=== PATIENT | male | born 1965 | race Caucasian/White ===

== ENCOUNTER 2016-10-01 13:39 | Inpatient (IN) ==
--- NOTE | 2016-10-01 14:04 | Emergency Department Note ---
Disposition Clinical Impression: Hepatic encephalopathy, Cirrhosis Disposition: Admitted As Inpatient Condition: Fair Altered Mental Status HPI - General Chief Complaint: ED Altered Mental Status Stated Complaint: Fall/AMS Time Seen by Provider: 10/01/16 13:48 Source: EMS Limitations: altered mental status Nursing Notes Reviewed: Yes Vital Signs Reviewed: Yes - History of Present Illness HPI Narrative: She presents after complaint of a possible fall although the patient is not able to give adequate history secondary to his medical condition of altered consciousness. Staff here does note the patient states he is more confused than usual but typically does have some chronic confusion. He lives in a snf and the history of trauma is undefined as is known here with the patient patient does not know why he is here. He specifically denies any pain in the head, neck, chest, abdomen or back. He initially said he had vomiting and then later said he does not have any. No diarrhea. No blood in the urine or stool. The snf will be attempted to be contacted and hopefully we will be able to get a hold of someone who knows about the patient. - Related Data Home Medications Medication Instructions Recorded Confirmed Paliperidone [Paliperidone ER] 6 mg PO DAILY 07/25/15 02/24/16 Multivitamin [One Daily Essential] 1 each PO DAILY 10/01/15 02/24/16 Tamsulosin [Flomax] 0.4 mg PO DAILY 10/01/15 02/24/16 Thiamine (B-1) [Vitamin B-1] 100 mg PO DAILY 10/01/15 02/24/16 Zinc Sulfate 220 mg PO DAILY 10/01/15 02/24/16 Gabapentin [Neurontin] 100 mg PO BID 02/03/16 02/24/16 lamoTRIgine [Lamictal] 100 mg PO DAILY 02/24/16 02/24/16 Previous Rx's Medication Instructions Recorded Folic Acid 1 mg PO DAILY #90 tablet 07/10/15 risperiDONE [RisperDAL] 1 mg PO BID #60 tablet 07/10/15 Ibuprofen [Motrin] 600 mg PO TID PRN #30 tab 01/15/16 Bumetanide 2 mg PO BID #60 tablet 02/07/16 Lactulose 20 gm PO TID 60 Days 02/07/16 Nadolol [Corgard] 20 mg PO DAILY #90 tablet 02/07/16 Omeprazole [PriLOSEC] 40 mg PO DAILY 30 Days 02/07/16 Rifaximin [Xifaxan] 400 mg PO BID #60 tablet 02/07/16 Spironolactone [Aldactone] 100 mg PO BID #30 tablet 02/07/16 Oxycodone HCl [Oxaydo] 5 mg PO Q6H PRN #20 tablet.orl 02/22/16 Allergies Allergy/AdvReac Type Severity Reaction Status Date / Time No Known Allergies Allergy Verified 09/14/16 16:04 Review of Systems: Denies any pain in the head or neck or abdomen Past Medical History - Past Medical History Medical history: Reports: arthritis, cirrhosis, CHF, COPD, GERD, hyperlipidemia , hypertension, liver disease, osteoporosis, seizures Surgical history: Reports: orthopedic, other (foot surgery) Psychiatric history: Reports: depression, schizophrenia - Social History Smoking Status: Never smoker Smokeless Tobacco Status: No Alcohol use: Reports: none Drug use: Reports: none Physical Exam CONSTITUTIONAL: Patient does seem lethargic, he does answer questions with questionable reliability but his answers are not always consistent. He does not know where he is. Does not know his age. Does not know the year. HEAD: Normocephalic; atraumatic. EYES: PERRL, no scleral icterus. NOSE: The nose is normal in appearance without rhinorrhea RESP: Normal chest excursion with respiration; breath sounds clear and equal bilaterally; no wheezes, rhonchi, or rales CARD: Regular rhythm, without murmurs, rub or gallop ABD: Non-distended; non-tender, soft,without rigidity, rebound or guarding SKIN: Normal for age and race; warm and dry; no apparent lesions NEUROLOGICAL: Cranial nerves III-XII are intact. Sensory and motor functions are intact. Strength is 5/5 for flexion and extension in all 4 extremities. Patellar DTRS are equal and intact. Finger to nose testing is equal and normal bilaterally. EXTREMITIES: Pulses are 2 plus and equal times 4 extremities - General Limitations: altered mental status General appearance: alert Course Vital Signs Temperature 97.9 F 10/01/16 13:46 Pulse Rate 101 10/01/16 13:46 Respiratory Rate 18 10/01/16 13:46 Blood Pressure 147/110 10/01/16 13:46 O2 Sat by Pulse Oximetry 100 10/01/16 13:46 Temperature 97.9 F 10/01/16 13:46 Pulse Rate 93 10/01/16 15:42 Respiratory Rate 18 10/01/16 15:42 Blood Pressure 109/74 10/01/16 15:42 O2 Sat by Pulse Oximetry 98 10/01/16 15:42 Oxygen Delivery Oxygen Delivery Room Air Altered Mental Status - MDM Narrative Medical decision making narrative: Labs plus head CT are ordered and pending. Patient is breathing comfortably. Color is good. 1405 The patient is a [facility]. I did review previous records. The patient does have a history of cirrhosis. 1406 I spoke with his nurse Nette at [facility] and she went in to give pt his morning meds and he was much more confused than usual. He typically knows year and month and is alert and oriented X 3. He may have snuck out and drank as he does leave the building "all the time". In the past the PA and MD have found that he smelled of alcohol after he returned to the [facility]. He has been there since September 04. He told the nurse aid that he fell but there is not paperwork about this. No fever, vomiting, difficulty breathing. His abd is usually distended, but no change today compared to baseline. I did review the patient's labs and radiology results. The ammonia level was extremely high. I did administer lactulose. The patient is confused and I did speak with the hospitalist who accepts the patient for admission.[id number] I did review the patient's EKG showing sinus tachycardia with a rate of 102 without acute ischemic change. 1636 - Medical Records Medical records reviewed: Yes I reviewed the patient's medical records. - Lab Data Lab results reviewed: Yes I reviewed the patient's lab results. Result diagrams: 10/01/16 14:04 10/01/16 14:04 Lab Results 10/01/16 10/01/16 10/01/16 Range/Units 13:55 13:55 14:04 WBC 6.6 (4.3-11.1) K/mcL RBC 3.56 L (4.19-5.50) M/mcL Hgb 12.3 L (12.9-16.9) g/dL Hct 34.6 L (37.5-50.1) % MCV 97.2 (83.0-100.0) fL MCH 34.6 H (28.0-33.3) pg MCHC 35.5 (31.6-35.5) g/dL RDW 14.6 H (11.5-14.5) % Plt Count 109 L (140-400) K/mcL MPV 8.4 L (9.4-12.4) fL Immature Gran % 0.6 (0-4) % Seg Neutrophils % 66.2 % Lymphocytes % 13.2 % Monocytes % 11.5 % Eosinophils % 7.9 % Basophils % 0.6 % Neutrophils # 4.4 (1.6-8.9) K/mcL Lymphocytes # 0.9 (0.6-4.6) K/mcL Monocytes # 0.8 (0.0-1.3) K/mcL Eosinophils # 0.5 (0.0-0.6) K/mcL Basophils # 0.0 (0.0-0.2) K/mcL Immature Plt Fraction 0.6 L (1.1-6.1) % Sodium (136-145) mEq/L Potassium (3.5-4.5) mEq/L Chloride (98-109) mEq/L Carbon Dioxide (19-29) mEq/L BUN (8-26) mg/dL Creatinine (0.72-1.25) mg/dL Est GFR ( Amer) (> 60) Est GFR (Non-Af Amer) (> 60) BUN/Creatinine Ratio (6-26) Glucose (70-99) mg/dL Calculated Osmolality (280-300) Calcium (8.6-10.8) mg/dL Total Bilirubin (0.2-1.2) mg/dL Direct Bilirubin (0.0-0.5) mg/dL Indirect Bilirubin (0.0-1.2) mg/dL AST (5-34) Units/L ALT (0-55) Units/L Alkaline Phosphatase (38-126) Units/L Ammonia (18-72) mcmol/L Serum Total Protein (6.0-8.3) g/dL Albumin (3.5-5.0) g/dL Globulin (2.4-3.5) g/dL Albumin/Globulin Ratio (1.1-2.2) Urine Color Yellow (Yellow) Urine Clarity Clear (Clear) Urine pH 7.5 (5.0-8.0) pH Units Ur Specific [place] 1.012 (1.010-1.025) Urine Protein Negative (Neg-Trace) mg/dL Urine Glucose (UA) Normal (Normal) mg/dL Urine Ketones Negative (Negative) mg/dL Urine Blood Negative (Negative) Urine Nitrite Negative (Negative) Urine Bilirubin Negative (Negative) Urine Urobilinogen Normal (Normal) mg/dL Ur Leukocyte Esterase Negative (Negative) Ur Culture Indicated? NO (NO) Urine Opiates Screen Negative (Ntikil=104) ng/mL Ur Barbiturates Screen Negative (Qzycfe=783) ng/mL Ur Phencyclidine Scrn Negative (Cutoff=25) ng/mL Ur Amphetamines Screen Negative (Gdgxge=8519) ng/mL U Benzodiazepines Scrn Negative (Tbhjep=344) ng/mL Urine Cocaine Screen Negative (Cutoff= 300) ng/mL U Marijuana (THC) Screen Negative (Cutoff = 50) ng/mL Ethyl Alcohol (0-10) mg/dL 10/01/16 10/01/16 Range/Units 14:04 14:49 WBC (4.3-11.1) K/mcL RBC (4.19-5.50) M/mcL Hgb (12.9-16.9) g/dL Hct (37.5-50.1) % MCV (83.0-100.0) fL MCH (28.0-33.3) pg MCHC (31.6-35.5) g/dL RDW (11.5-14.5) % Plt Count (140-400) K/mcL MPV (9.4-12.4) fL Immature Gran % (0-4) % Seg Neutrophils % % Lymphocytes % % Monocytes % % Eosinophils % % Basophils % % Neutrophils # (1.6-8.9) K/mcL Lymphocytes # (0.6-4.6) K/mcL Monocytes # (0.0-1.3) K/mcL Eosinophils # (0.0-0.6) K/mcL Basophils # (0.0-0.2) K/mcL Immature Plt Fraction (1.1-6.1) % Sodium 125 L (136-145) mEq/L Potassium 4.6 H (3.5-4.5) mEq/L Chloride 94 L (98-109) mEq/L Carbon Dioxide 26 (19-29) mEq/L BUN 13 (8-26) mg/dL Creatinine 0.72 (0.72-1.25) mg/dL Est GFR ( Amer) > 60 (> 60) Est GFR (Non-Af Amer) > 60 (> 60) BUN/Creatinine Ratio 18 (6-26) Glucose 108 H (70-99) mg/dL Calculated Osmolality 261 L (280-300) Calcium 9.4 (8.6-10.8) mg/dL Total Bilirubin 4.4 H (0.2-1.2) mg/dL Direct Bilirubin 2.3 H (0.0-0.5) mg/dL Indirect Bilirubin 2.1 H (0.0-1.2) mg/dL AST 84 H (5-34) Units/L ALT 53 (0-55) Units/L Alkaline Phosphatase 241 H (38-126) Units/L Ammonia 124 H (18-72) mcmol/L Serum Total Protein 7.6 (6.0-8.3) g/dL Albumin 2.8 L (3.5-5.0) g/dL Globulin 4.8 H (2.4-3.5) g/dL Albumin/Globulin Ratio 0.6 L (1.1-2.2) Urine Color (Yellow) Urine Clarity (Clear) Urine pH (5.0-8.0) pH Units Ur Specific [place] (1.010-1.025) Urine Protein (Neg-Trace) mg/dL Urine Glucose (UA) (Normal) mg/dL Urine Ketones (Negative) mg/dL Urine Blood (Negative) Urine Nitrite (Negative) Urine Bilirubin (Negative) Urine Urobilinogen (Normal) mg/dL Ur Leukocyte Esterase (Negative) Ur Culture Indicated? (NO) Urine Opiates Screen (Dxswsq=324) ng/mL Ur Barbiturates Screen (Qluaxo=925) ng/mL Ur Phencyclidine Scrn (Cutoff=25) ng/mL Ur Amphetamines Screen (Isazpl=2135) ng/mL U Benzodiazepines Scrn (Biwbhs=845) ng/mL Urine Cocaine Screen (Cutoff= 300) ng/mL U Marijuana (THC) Screen (Cutoff = 50) ng/mL Ethyl Alcohol < 10 (0-10) mg/dL - Radiology Data Radiology results reviewed: Yes I reviewed the patient's radiology results. Chest X-Ray 10/01/16 13:47 IMPRESSION: Small airspace opacity at the right lung base, improved since the prior study, likely related to atelectasis versus pneumonia. Trace right pleural effusion. Stable borderline cardiomegaly. D/ / Michael Pierre MD / Michael Pierre MD Interpreting Provider: Michael Pierre MD Head CT 10/01/16 13:47 IMPRESSION: No acute intracranial abnormality. D/ / Joelle Braden MD / Joelle Braden MD Interpreting Provider: Joelle Braden MD Checklist - LKW: 3-4.5 hrs Add. Warnings/Precautions Patient/family understanding: The patient/family members have been counseled and understood the risk, benefit , and alternatives of treatment. Critical Care Time Critical Care Time: Yes (30 minutes) Attestation: I did emergently evaluate the patient presented confused, spoke with the [facility] staff, review the patient's radiology results as well as lab results, the patient was diagnosed with hepatic encephalopathy and treated with lactulose. Critical care time: 30 minutes [id number]
[2016-10-01 14:06] LABS: Bilirubin,Urine Negative (Negative); Blood,Urine Negative (Negative); Clarity,Urine Clear (Clear); Color,Urine Yellow (Yellow); Glucose,Urine (UA) Normal (Normal); Ketones,Urine Negative (Negative); Leukocyte Esterase,Urine Negative (Negative); Nitrite,Urine Negative (Negative); PH,Urine 7.5 pH Units (5.0-8.0); Protein,Urine Negative (Neg-Trace); Specific Gravity,Urine 1.012 (1.010-1.025); Urobilinogen,Urine Normal (Normal)
[2016-10-01 14:11] LABS: Amphetamine Screen,Urine Negative ng/mL (Cutoff=1000); Barbiturate Screen,Urine Negative ng/mL (Cutoff=200); Benzodiazepines Screen,Urine Negative ng/mL (Cutoff=200); Cannabinoid Screen,Urine Negative ng/mL (Cutoff = 50); Cocaine Screen,Urine Negative ng/mL (Cutoff= 300); Opiate Screen,Urine Negative ng/mL (Cutoff=300); Phencyclidine Screen,Urine Negative ng/mL (Cutoff=25)
[2016-10-01 14:14] LABS: Immature Granulocytes % 0.6 % (0-4); Mean Corpuscular HGB Conc 35.5 g/dL (31.6-35.5); Mean Platelet Volume 8.4 fL (9.4-12.4)
[2016-10-01 14:15] LABS: Basophils % 0.6 %; Eosinophils # 0.5 K/mcL (0.0-0.6); Eosinophils % 7.9 %; Hematocrit 34.6 % (37.5-50.1); Hemoglobin 12.3 g/dL (12.9-16.9); Immature Platelets 0.6 % (1.1-6.1); Lymphocytes # 0.9 K/mcL (0.6-4.6); Lymphocytes % 13.2 %; Mean Corpuscular Hemoglobin 34.6 pg (28.0-33.3); Mean Corpuscular Volume 97.2 fL (83.0-100.0); Monocytes # 0.8 K/mcL (0.0-1.3); Monocytes % 11.5 %; Neutrophils # 4.4 K/mcL (1.6-8.9); Platelet Count 109 K/mcL (140-400); Red Blood Count 3.56 M/mcL (4.19-5.50); Red Cell Distribution Width 14.6 % (11.5-14.5); Segmented Neutrophils % 66.2 %
[2016-10-01 14:27] LABS: Alanine Aminotransferase 53 Units/L (0-55); Albumin 2.8 g/dL (3.5-5.0); Albumin/Globulin Ratio 0.6 (1.1-2.2); Alkaline Phosphatase 241 Units/L (38-126); Aspartate Amino Transferase 84 Units/L (5-34); BUN/Creatinine Ratio 18 (6-26); Bilirubin,Direct 2.3 mg/dL (0.0-0.5); Bilirubin,Indirect 2.1 mg/dL (0.0-1.2); Bilirubin,Total 4.4 mg/dL (0.2-1.2); Blood Urea Nitrogen 13 mg/dL (8-26); Calcium 9.4 mg/dL (8.6-10.8); Carbon Dioxide 26 mEq/L (19-29); Chloride 94 mEq/L (98-109); Globulin 4.8 g/dL (2.4-3.5); Glucose 108 mg/dL (70-99); Osmolality,Calculated 261 (280-300); Potassium 4.6 mEq/L (3.5-4.5); Sodium 125 mEq/L (136-145); Total Protein 7.6 g/dL (6.0-8.3); eGFR For African Americans > 60 (> 60); eGFR For Non-African Americans > 60 (> 60)
[2016-10-01 14:33] LABS: Ethanol < 10 mg/dL (0-10)
[2016-10-01] MEDS ORDERED: Lactulose Oral Soln 20 GM/30 ML UDC PO ONE (16:07)
[2016-10-01] MEDS ORDERED: Acetaminophen 325 MG TABLET PO PRN ×2 (17:31→21:59)
[2016-10-01] MEDS ORDERED: Naloxone 0.4 MG/ML INJ IVP PRN (17:31)
[2016-10-01] MEDS ORDERED: Ondansetron 4 MG/2 ML VIAL IVP PRN (17:31)
--- NOTE | 2016-10-01 17:56 | Internal Med History&Physical ---
<Itz Iverson - Last Filed: 10/01/16 19:03> Date of Encounter: 10/01/16 Time of Encounter: 17:00 Assessment and Plan (1) Spontaneous bacterial peritonitis Current visit: Yes Status: Acute Patient presents with suspected spontaneous bacterial peritonitis based on symptomatology. Patient's current WBC is 6.6 and is not symptomatic for sepsis based on criteria. IV Zosyn 3.375 gm Q8 ordered for infection coverage. (2) Hepatic encephalopathy Current visit: Yes Status: Acute Patient presents with symptoms of acute hepatic encephalopathy. Patient's current ammonia level is 122 following initial ammonia level of 124 in the ED. Patient is extremely altered mentally during examination and unable to answer questions appropriately or coherently. Patient received 30 mg lactulose ED which did not bring ammonia level down significantly. Patient to receive lactulose enema. Follow-up ammonia and labs ordered. Bedside swallow evaluation ordered. Patient to be placed as NPO until he is more lucid and coherent. (3) Abdominal pain Current visit: Yes Status: Acute Patient presents with generalized abdominal pain with palpation during examination. IV Zofran ordered. IVP Protonix 40 mg daily ordered. Patient is currently to be NPO due to AMS and will require swallow evaluation to determine ability to take PO medications. IV Zosyn 3.375 Q8 ordered for suspected spontaneous bacterial peritonitis infection coverage. Qualifiers: Abdominal location: generalized Qualified Code(s): R10.84 - Generalized abdominal pain (4) Abnormal EKG Current visit: Yes Status: Acute Patient's EKG on admission shows sinus tachycardia which is most likely related to current symptomatology and suspected spontaneous bacterial peritonitis. Patient placed on continuous cardiac telemetry. Follow-up EKG ordered. (5) Hyperammonemia Current visit: Yes Status: Acute Patient presents with altered mental status related to cirrhosis and hepatic encephalopathy. Patient is unable to answer questions coherently during exmination and is alert and oriented x0. Patient's ammonia level on admission was 124. Patient received 30 mg PO lactulose in the ED. Patient's second ammonia level was 122. Patient to receive lactulose via rectal enema. Follow-up ammonia level ordered for a.m. Will continue to monitor patient's mental status. (6) GERD (gastroesophageal reflux disease) Current visit: Yes Status: Chronic Patient has history of chronic GERD. IV Zofran ordered. IVP Protonix 40 mg daily ordered. Qualifiers: Esophagitis presence: esophagitis presence not specified Qualified Code(s) : K21.9 - Gastro-esophageal reflux disease without esophagitis (7) DVT prophylaxis Current visit: Yes Status: Acute Patient to be placed on DVT prophylaxis due to admission protocol and current AMS. Bilateral SCDs ordered for patient's LEs. Internal Medicine - H&P: HPI Chief complaint: Altered mental status Admitted From: Emergency Dept Plans for Post Hospital Care: Home History of present illness: Mr. Rivera is a 51 year old male who presents from the ED with chief complaint of altered mental status. Upon examination, patient is in an altered state of consciousness and offers only minimal responses which do not correlate to the questions asked of him. He is alert and oriented x0 and does not currently know where he is, what year it is, or why he is here at the hospital. Due to patient being unable to verbalize clearly or coherently, information about the patient must be taken from previous medical history available. According to records, the [facility] a [facility] but no contact has been able to be made to verify information about Mr. Rivera. Patient has no known allergies according to records. Patient's medical history includes arthritis, cirrhosis, CHF, COPD , GERD, HLD, HTN, liver disease, osteoporosis, and seizures. Patient's psychiatric history includes depression and schizophrenia. When asked what medications the patient takes for his psychiatric history he stated 'alcohol'. Upon physical examination the patient is breathing regularly and comfortably. Patient's heart rate is regular rhythm and lungs are clear upon auscultation. Patient does report pain when abdomen is palpated. Upon admission TV, patient' s ammonia level was 124. AST was 84 and AST was 53. Bilirubin was 4.4. Patient received 30 mg lactulose by mouth in the ED. Follow-up lactulose will likely have to be via rectal enema. Swallow evaluation ordered to determine if patient can safely take medications PO. Patient placed on continuous cardiac telemetry and supplemental O2 and will be NPO until he becomes more lucid. Patient is at moderate risk for morbidity based on current symptomology and will be placed as inpatient status. Follow-up ammonia level ordered as well as labs. Patient to be monitored closely. Time spent with patient 30 minutes. Past Med Surg Social Fam HX - Past Medical History Source: old records reviewed Medical history: arthritis, cirrhosis, CHF, COPD, GERD, hyperlipidemia, hypertension, liver disease, osteoporosis, seizures Psychiatric history: depression, schizophrenia - Past Surgical History Surgical History: orthopedic, other (foot surgery) - Social History Smoking Status: Never smoker Smokeless Tobacco Status: No Alcohol use: none Drug use: none Current living situation: Longterm - Family History Mother Living Status: Hx Family Cardiac Disorders: Yes Hx Family Respiratory Disorders: Yes (COPD) Hx Family Cancer: No Hx Family GI Disorders: No Hx Family Endocrine Disorder: No Hx Family Neuromuscular Disorders: Yes (Polio, CVA) Hx Family Neurologic Disorders: No Hx Family HEENT Disorders: No Hx Family Autoimmune Disorders: No Father Living Status: Hx Family Cardiac Disorders: No Hx Family Respiratory Disorders: No Hx Family Cancer: No Hx Family GI Disorders: No Hx Family Endocrine Disorder: No Hx Family Neuromuscular Disorders: No Hx Family Neurologic Disorders: No Hx Family HEENT Disorders: No Hx Family Autoimmune Disorders: No Sister Hx Family Cancer: Yes (thyroid cancer) Hx Family Endocrine Disorder: Yes Internal Medicine - H&P: Meds Paliperidone [Paliperidone ER] 6 mg PO QAM 07/25/15 [History] Multivitamin [One Daily Essential] 1 each PO QAM 10/01/15 [History] Tamsulosin [Flomax] 0.4 mg PO HS 10/01/15 [History] Thiamine (B-1) [Vitamin B-1] 100 mg PO QAM 10/01/15 [History] Zinc Sulfate 220 mg PO QAM 10/01/15 [History] Rifaximin [Xifaxan] 400 mg PO BID #60 tablet 02/07/16 [Rx] Oxycodone HCl [Oxaydo] 5 mg PO Q6H PRN #20 tablet.orl 02/22/16 [Rx] lamoTRIgine [Lamictal] 100 mg PO QAM 02/24/16 [History] Acetaminophen [Tylenol] 325 mg PO Q6HR PRN 10/01/16 [History] Bumetanide [Bumex] 1 mg PO BID 10/01/16 [History] Folic Acid 1 mg PO QAM 10/01/16 [History] Lactulose 30 gm PO QID PRN 10/01/16 [History] Melatonin 5 mg PO HS 10/01/16 [History] Pantoprazole Sodium [Protonix] 40 mg PO BID 10/01/16 [History] Spironolactone [Aldactone] 150 mg PO BID 10/01/16 [History] Tramadol HCl [Ultram] 50 mg PO BID PRN 10/01/16 [History] Allergies No Known Allergies Allergy (Verified 09/14/16 16:04) ROS unobtainable: due to mental status All Systems PM: A 10-system review of systems was performed and is negative for pertinent findings except as documented above in the HPI. - Constitutional Vitals: Temp Pulse Resp BP Pulse Ox 97.7 F 95 16 101/69 98 10/01/16 17:12 10/01/16 17:12 10/01/16 17:12 10/01/16 17:12 10/01/16 17:12 General appearance: Present: A&O X 0 - Head Head exam: Present: atraumatic, normocephalic - Eye Eye exam: Present: normal appearance - ENT ENT exam: Present: normal exam, normal external ear exam - Neck Neck exam general surgery: Present: normal inspection, supple, trachea midline - Respiratory Respiratory exam: Present: CTAB. Absent: accessory muscle use, rales, rhonchi, wheezes - Cardiovascular Cardiovascular exam: Present: RRR, +S1, +S2. Absent: diastolic murmur, gallop, rubs, systolic murmur - GI/Abdominal GI/Abdominal exam: Present: soft, tenderness - Rectal Rectal exam: Present: deferred - Additional comments: exam deferred. - Extremities Exam Extremities exam: Present: warm, radial pulses palpable and symetrical. Absent : calf tenderness, cyanotic, pedal edema - Neurological Exam Neurological exam: Present: altered - Skin Skin exam: Present: dry, intact Additional comments: Some peeling present on patient's face under lorenzo stubble. Some small red areas present on face and throughout body. Internal Med - H&P Results - Labs CBC & Chem 7: 10/01/16 14:04 10/01/16 14:04 - EKG Data EKG shows normal: sinus rhythm Rate: tachycardia - EKG Data When compared to previous EKG: there are significant changes EKG comments: 10/01/16 18:00 EKG dated 09/14/16 shows normal sinus rhythm. EKG dated 10/01/16 shows tachycardia and abnormal ECG rhythm. - Diagnostic Studies Chest x-ray Additional comments: Impressions Chest X-Ray 10/01/16 13:47 IMPRESSION: Small airspace opacity at the right lung base, improved since the prior study, likely related to atelectasis versus pneumonia. Trace right pleural effusion. Stable borderline cardiomegaly. D/ / Michael Pierre MD / Michael Pierre MD Interpreting Provider: Michael Pierre MD CT scan - head Additional comments: Impressions Head CT 10/01/16 13:47 IMPRESSION: No acute intracranial abnormality. D/ / Joelle Braden MD / Joelle Braden MD Interpreting Provider: Joelle Braden MD <Patrice Georges - Last Filed: 10/01/16 19:23> Date of Encounter: 10/01/16 Internal Medicine - H&P: HPI History of present illness: Mr. Rivera is a 51 year old male All Systems PM: A 10-system review of systems was performed and is negative for pertinent findings except as documented above in the HPI. - Constitutional Vitals: Temp Pulse Resp BP Pulse Ox 97.7 F 95 16 101/69 98 10/01/16 17:12 10/01/16 17:12 10/01/16 17:12 10/01/16 17:12 10/01/16 17:12 Internal Med - H&P Results - Labs CBC & Chem 7: 10/01/16 14:04 10/01/16 14:04 - Attending Attestation I saw and examined pt. I discussed with [employer] regarding the management plan. Agree with the documentation. Pt present with AMS with high amonia level. When I saw pt, he is awake but drowsy, disoriented. Agree with lactulose enema and empirical zosyn for suspected SBP. Follow ammonia level in AM.
[2016-10-01] MEDS: Pantoprazole 40 MG VIAL IVP SCH (18:11)
[2016-10-01] MEDS ORDERED: Lactulose 200 GM, Sodium Chloride IRRigation 700 ML RC ONE (18:24)
[2016-10-01] MEDS ORDERED: 0.9 % Sodium Chloride 1,000 ML IVC SCH (19:45)
[2016-10-01] MEDS: Lactulose Oral Soln 20 GM/30 ML UDC PO SCH (21:24)
[2016-10-02] MEDS ORDERED: Acetaminophen 325 MG TABLET PO SCH
[2016-10-02] MEDS: Piperacillin/Tazobactam 3.375 GM in D5% in Water (Mini-Bag+) 100 ML IVPB SCH ×2 (00:55→09:22)
[2016-10-02 05:58] LABS: INR 1.6; Prothrombin Time 17.3 Seconds (9.4-12.1)
[2016-10-02 06:01] LABS: Activated Partial Thrombo Time 37.8 Seconds (26.0-36.0)
[2016-10-02 06:21] LABS: Basophils # 0.1 K/mcL (0.0-0.2); Basophils % 0.8 %; Eosinophils # 0.6 K/mcL (0.0-0.6); Eosinophils % 8.3 %; Hematocrit 31.9 % (37.5-50.1); Hemoglobin 11.3 g/dL (12.9-16.9); Immature Granulocytes % 0.5 % (0-4); Lymphocytes # 0.9 K/mcL (0.6-4.6); Lymphocytes % 11.4 %; Mean Corpuscular HGB Conc 35.4 g/dL (31.6-35.5); Mean Corpuscular Hemoglobin 34.9 pg (28.0-33.3); Mean Corpuscular Volume 98.5 fL (83.0-100.0); Mean Platelet Volume 8.8 fL (9.4-12.4); Monocytes # 1.1 K/mcL (0.0-1.3); Monocytes % 14.8 %; Neutrophils # 4.9 K/mcL (1.6-8.9); Platelet Count 102 K/mcL (140-400); Red Blood Count 3.24 M/mcL (4.19-5.50); Red Cell Distribution Width 14.8 % (11.5-14.5); Segmented Neutrophils % 64.2 %
[2016-10-02 06:46] LABS: BUN/Creatinine Ratio 21 (6-26); Blood Urea Nitrogen 19 mg/dL (8-26); Carbon Dioxide 23 mEq/L (19-29); Chloride 97 mEq/L (98-109); Chol/HDL Ratio 3.4 (0-4.9); Cholesterol 162 mg/dL (< 200); Glucose 131 mg/dL (70-99); HDL Cholesterol 48 mg/dL (40-59); LDL Cholesterol,Calculated 105 mg/dL (0-99); Magnesium 1.4 mg/dL (1.6-2.6); Osmolality,Calculated 266 (280-300); Phosphorous 4.7 mg/dL (2.3-4.7); Potassium 4.4 mEq/L (3.5-4.5); Triglycerides 46 mg/dL (< 150); eGFR For African Americans > 60 (> 60); eGFR For Non-African Americans > 60 (> 60)
[2016-10-02 06:48] LABS: Sodium 126 mEq/L (136-145)
--- NOTE | 2016-10-02 07:28 | Electrocardiograph Report ---
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
[2016-10-02] MEDS: *HR* OxyCODONE Immed Rel 5 MG TABLET PO PRN ×3 (09:22→22:32)
[2016-10-02] MEDS: Pantoprazole 40 MG VIAL IVP SCH (09:22)
[2016-10-02] MEDS: Lactulose Oral Soln 20 GM/30 ML UDC PO SCH ×4 (09:22→20:43)
--- NOTE | 2016-10-02 10:12 | Internal Med Progress Note ---
<Davonte Allen - Last Filed: 10/02/16 10:47> Date of Encounter: 10/02/16 Time of Encounter: 10:09 - Assessment and plan (1) Spontaneous bacterial peritonitis Current Visit: Yes Status: Acute Assessment and plan: -Ascites secondary to alcoholic cirrhosis with fever and tachycardia - Febrile, 99.3. HR 111. WBC 7.6. - Will obtain diagnostic paracentesis this morning. IR consulted given INR of 1.6. UNable to obtain given lack of fluid on ultrasound. - Zosyn and rifaximin given. (2) Decompensated hepatic cirrhosis Current Visit: Yes Status: Chronic Assessment and plan: - Known history of alocholic cirrhosis with ammonia 86 most recently - Ascites on physical exam - Will obtain paracentesis - lactulose 30 mg QID. Ammonia level 86 - Zofran, protonix (3) Altered mental status Current Visit: Yes Status: Acute Assessment and plan: - Likely secondary to hepatic encephalopathy given history of cirrhosis. - Improved, AOx2 this morning. - Ammonia of 86. - Given lactulose 30 mg QID Qualifiers: Altered mental status type: transient alteration of awareness Qualified Code(s): R40.4 - Transient alteration of awareness (4) Hypomagnesemia Current Visit: Yes Status: Acute Assessment and plan: 1.4 - Given 2 mg IVPB (5) GERD (gastroesophageal reflux disease) Current Visit: Yes Status: Chronic Assessment and plan: - Continue protonix. Qualifiers: Esophagitis presence: esophagitis presence not specified Qualified Code(s) : K21.9 - Gastro-esophageal reflux disease without esophagitis - Time Spent With Patient 25 - 35 minutes - Subjective Interval history: Patient was seen and examined at bedside this morning. He stated he is unsure why he was admitted but states to some confusion for the past week and does not remember being admitted. He denies any symptoms of CP, SOB, fevers, chills, n/ v. He does admit to some abdominal pain worse with movement. He tolerated breakfast well. He admits to being a former heavy alcohol drinker but states his last drink was in February of 2015 and he has been compliant with his medications. - Constitutional Vitals: Temp Pulse Resp BP Pulse Ox 99.3 F 111 16 103/61 98 10/02/16 06:52 10/02/16 06:52 10/02/16 06:52 10/02/16 06:52 10/02/16 06:52 General appearance: Present: A&O X 0 Exam: Gen.: Vitals noted. No acute distress. AAOx2. Confused, disheveled appearing. HEENT: PERRL/EOMI, oropharynx clear, Normocephalic, atraumatic Neck: Supple. No adenopathy. Cardiac: RRR, no murmur, +S1/S2. Tachycardic Pulmonary: CTA bilaterally, no wheezes, rales or rhonchi, equal chest expansion Abdomen: positive fluid wave with ascites present. Tender to palpation in LLQ, epigastric, LRQ. hyperactive bowel sounds, no guarding Back: Nontender throughout. MSK: ROM intact, no joint swelling noted Extremities: no BLE edema, nontender calf, no cyanosis or clubbing Neuro: A&Ox2, moves all extremities, no focal deficits Psych: Appropriate mood and behavior Internal Medicine: Result - Labs CBC & Chem 7: 10/02/16 05:40 10/02/16 05:40 Labs: Short CBC 10/02/16 Range/Units 05:40 WBC 7.6 (4.3-11.1) K/mcL Hgb 11.3 L (12.9-16.9) g/dL Hct 31.9 L (37.5-50.1) % Plt Count 102 L (140-400) K/mcL Neutrophils # 4.9 (1.6-8.9) K/mcL BMP 10/02/16 05:40 Sodium 126 L Potassium 4.4 Chloride 97 L Carbon Dioxide 23 BUN 19 Creatinine 0.90 Glucose 131 H Calcium 9.0 - ABG Interpretation ABG results: PT/INR, D-dimer PT 17.3 Seconds (9.4-12.1) H 10/02/16 05:40 Consult Discharge Plan - Plan Referrals: Marco A Brown MD [Primary Care Provider] - <Young Amaro H - Last Filed: 10/02/16 13:35> Date of Encounter: 10/02/16 - Constitutional Vitals: Temp Pulse Resp BP Pulse Ox 98.4 F 108 18 125/78 98 10/02/16 10:52 10/02/16 10:52 10/02/16 10:52 10/02/16 10:52 10/02/16 10:52 Internal Medicine: Result - Labs CBC & Chem 7: 10/02/16 05:40 10/02/16 05:40 Labs: Short CBC 10/02/16 Range/Units 05:40 WBC 7.6 (4.3-11.1) K/mcL Hgb 11.3 L (12.9-16.9) g/dL Hct 31.9 L (37.5-50.1) % Plt Count 102 L (140-400) K/mcL Neutrophils # 4.9 (1.6-8.9) K/mcL BMP 10/02/16 05:40 Sodium 126 L Potassium 4.4 Chloride 97 L Carbon Dioxide 23 BUN 19 Creatinine 0.90 Glucose 131 H Calcium 9.0 - ABG Interpretation ABG results: PT/INR, D-dimer PT 17.3 Seconds (9.4-12.1) H 10/02/16 05:40 - Impressions Impressions Abdomen/Pelvis/Transvag US 10/02/16 00:00 IMPRESSION: No ascites seen. D/ / 10/02/2016 11:57:46 Joelle Braden MD / bcarter Interpreting Provider: Joelle Braden MD - Attending Attestation acute hepatic encephalopathy continue lactulose and XIfaxan CT of the abdomen and pelvis I examined this patient and my medical decision-making was reviewed with the Resident Physician. I agree with the documented findings, disposition and treatment plan as described except to the extent set forth below.
[2016-10-02] MEDS ORDERED: Magnesium Sulfate 2 GM in D5% in Water 100 ML IVPB ONE (10:23)
[2016-10-02] MEDS ORDERED: *HR* LORazepam 2 MG/ML VIAL IVP PRN (14:12)
[2016-10-02] MEDS: 0.9 % Sodium Chloride 1,000 ML IVC SCH (18:54)
[2016-10-03] MEDS: 0.9 % Sodium Chloride 1,000 ML IVC SCH (04:34)
[2016-10-03] MEDS: *HR* OxyCODONE Immed Rel 5 MG TABLET PO PRN ×2 (04:37→11:20)
[2016-10-03 06:19] LABS: Mean Corpuscular HGB Conc 34.9 g/dL (31.6-35.5); Mean Corpuscular Hemoglobin 34.8 pg (28.0-33.3); Mean Corpuscular Volume 99.7 fL (83.0-100.0); Red Cell Distribution Width 14.7 % (11.5-14.5)
[2016-10-03 06:21] LABS: Hematocrit 29.8 % (37.5-50.1); Hemoglobin 10.4 g/dL (12.9-16.9); Immature Platelets 0.7 % (1.1-6.1); Mean Platelet Volume 8.5 fL (9.4-12.4); Red Blood Count 2.99 M/mcL (4.19-5.50)
[2016-10-03 06:33] LABS: BUN/Creatinine Ratio 16 (6-26); Blood Urea Nitrogen 12 mg/dL (8-26); Calcium 8.6 mg/dL (8.6-10.8); Carbon Dioxide 23 mEq/L (19-29); Chloride 101 mEq/L (98-109); Glucose 141 mg/dL (70-99); Magnesium 1.7 mg/dL (1.6-2.6); Osmolality,Calculated 266 (280-300); Potassium 4.7 mEq/L (3.5-4.5); Sodium 127 mEq/L (136-145); eGFR For African Americans > 60 (> 60); eGFR For Non-African Americans > 60 (> 60)
[2016-10-03] MEDS: Pantoprazole 40 MG VIAL IVP SCH (09:30)
[2016-10-03] MEDS: Lactulose Oral Soln 20 GM/30 ML UDC PO SCH ×2 (09:30→11:20)
--- NOTE | 2016-10-03 10:22 | Discharge Summary ---
<Herve Coleman - Last Filed: 10/03/16 11:05> Date of Encounter: 10/03/16 Time of Encounter: 09:00 - Discharge Diagnosis (1) Hepatic encephalopathy Priority: Primary Status: Acute Comments: - Altered mental status on admission with elevated ammonia level. - Likely secondary to inadequate lactulose use as patient reports not taking his lactulose as frequent as it should be. - Unlikely spontaneous bacterial peritonitis given no fever, leukocytosis and no significant ascites per CT A/P and US. - Improves as patient's mental status is currently back to his baseline. - Will discharge patient home with scheduled lactulose and patient has been instructed to make sure having at least 3-4 bowel movements daily. (2) Hyperammonemia Priority: Secondary Status: Acute Comments: - Serum ammonia at 124 on admission. - Improves after scheduled lactulose with last ammonia at 86 on 10/02/16. (3) Hyponatremia Priority: Secondary Status: Chronic Comments: - Chronic hyponatremia. (4) Hypomagnesemia Priority: Secondary Status: Resolved Comments: - Mg 1.4 on 10/02/16 - Mg supplement was given and improves to 1.7 on 10/03/16 (5) Cirrhosis of liver Priority: Secondary Status: Chronic Qualifiers: Hepatic cirrhosis type: unspecified hepatic cirrhosis Ascites presence: with ascites Qualified Code(s): K74.60 - Unspecified cirrhosis of liver - Discharge Medications Prescriptions: Lactulose 30 gm PO BID #60 Oxycodone HCl [Oxaydo] 5 mg PO Q6H PRN #20 tablet.orl PRN Reason: Pain Home Medications: Paliperidone [Paliperidone ER] 6 mg PO QAM 07/25/15 [History] Multivitamin [One Daily Essential] 1 each PO QAM 10/01/15 [History] Tamsulosin [Flomax] 0.4 mg PO HS 10/01/15 [History] Thiamine (B-1) [Vitamin B-1] 100 mg PO QAM 10/01/15 [History] Zinc Sulfate 220 mg PO QAM 10/01/15 [History] Rifaximin [Xifaxan] 400 mg PO BID #60 tablet 02/07/16 [Rx] lamoTRIgine [Lamictal] 100 mg PO QAM 02/24/16 [History] Acetaminophen [Tylenol] 325 mg PO Q6HR PRN 10/01/16 [History] Bumetanide [Bumex] 1 mg PO BID 10/01/16 [History] Folic Acid 1 mg PO QAM 10/01/16 [History] Melatonin 5 mg PO HS 10/01/16 [History] Pantoprazole Sodium [Protonix] 40 mg PO BID 10/01/16 [History] Spironolactone [Aldactone] 150 mg PO BID 10/01/16 [History] Tramadol HCl [Ultram] 50 mg PO BID PRN 10/01/16 [History] Lactulose 30 gm PO BID #60 10/03/16 [Rx] Oxycodone HCl [Oxaydo] 5 mg PO Q6H PRN #20 tablet.orl 10/03/16 [Rx] Allergies/Adverse Reactions: Allergies No Known Allergies Allergy (Verified 09/14/16 16:04) Procedures/tests Complete & Pending: Procedures Performed prior 72 hours Category Date Time Status CT abd pelvis w iv and oral [CT] Stat Cat Scan 10/02/16 15:00 Draft IR US abdomen limited [IR] Routine Exams 10/02/16 Completed Date of admission: 10/01/16 17:31 Primary care physician: Marco A Brown MD Consults: 10/01/16 18:23 Consult to Nutrition [CONS] Routine Comment: Consulting Provider: NUTRITION Reason for Dietary Consult: Diet Education 10/02/16 08:58 Consult to Interventional Radiology [CONS] Routine Consulting Provider: Radiology Interventional Cols Reason for Consult: Diagnostic paracentesis for suspected SBP. INR 1.6 Call Completed: Yes Discharging clinician: Herve Coleman Anticipated date of discharge: 10/03/16 - Patient Status Disposition: Transfer SNF Condition: Fair Functional capacity at discharge: independent ambulation Overall status at discharge: patient is progressing back to baseline - Discharge Instructions Follow Up With: Marco A Brown MD [Primary Care Provider] - (Within a week) Additional Instructions: Please take lactulose 30 mg twice a day as scheduled and make sure having at least 3-4 bowel movements a day. Please continue rifaximin 400 mg twice a day. Please follow up with your primary care provider within a week. - Diet and Activity Activity: increase activity as tolerated Diet: low fat, low cholesterol Hospital course: Mr. Rivera is a 51 year old male with PMH of liver cirrhosis, COPD, HTN, hyperlipidemia and history of seizures. Patient was sent to [place] ED from [facility] for altered mental status. Patient was noted to be disoriented with minimal responses in ED and serum ammonia level at 124. Patient was admitted on 10/01/16 for hepatic encephalopathy and concern of spontaneous bacterial peritonitis. Patient was started on IV antibiotic along with rifaximin and scheduled lactulose. Patient's mental status significantly improves after multiple bowel movements (average 3 BM daily) and ammonia dropped to 86 on .. The hepatic encephalopathy is likely secondary to inadequate lactulose use as patient reports not taking his lactulose as frequent as it should be. Spontaneous bacterial peritonitis is then concluded unlikely given no fever & leukocytosis and no significant ascites per CT A/P and US. Patient was also noted to have Mg 1.4 on 10/02/16. Mg supplement was given and improves to 1.7 on 10/03/16. On the day of discharge, patient reports his mental status has been back to his baseline and desires to go back to [facility]. Patient is instructed to take lactulose 30 mg twice a day as scheduled and make sure having at least 3 -4 bowel movements a day. Patient will also continue rifaximin 400 mg twice a day. Patient should follow up with his primary care provider within a week. Patient verbalized his understanding and agreed with the discharge plan. All questions answered. - Time Spent with Patient Total time spent providing and/or coordinating discharge services: Greater than 30 minutes (42 minutes) - Constitutional Vitals: Temp Pulse Resp BP Pulse Ox 98.6 F 94 16 115/69 95 10/03/16 04:48 10/03/16 04:48 10/03/16 04:48 10/03/16 04:48 10/03/16 09:45 General appearance: Present: cooperative, A&O X 3, no acute distress, answers questions appropriately - Head Head exam: Present: atraumatic, normocephalic - Eye Eye exam: Present: EOMI, PERRL, conjuntiva pink, sclera anicteric - Neck Neck exam general surgery: Present: supple, trachea midline. Absent: lymphadenopathy - Respiratory Respiratory exam: Present: CTAB. Absent: accessory muscle use, rales, rhonchi, wheezes - Cardiovascular Cardiovascular exam: Present: RRR, +S1, +S2. Absent: diastolic murmur, gallop, rubs, systolic murmur - GI/Abdominal GI/Abdominal exam: Present: distended (Mildly), normal bowel sounds, soft, no peritoneal signs. Absent: tenderness - Extremities Exam Extremities exam: Present: warm, radial pulses palpable and symetrical. Absent : calf tenderness, cyanotic, pedal edema - Neurological Exam Neurological exam: Present: CN II-XII intact, oriented X3, no focal deficits. Absent: pronater drift, facial droop, speech deficit - Skin Skin exam: Present: dry, intact, warm <Young Amaro H - Last Filed: 10/03/16 12:33> Date of Encounter: 10/03/16 Procedures/tests Complete & Pending: Procedures Performed prior 72 hours Category Date Time Status CT abd pelvis w iv and oral [CT] Stat Cat Scan 10/02/16 15:00 Draft IR US abdomen limited [IR] Routine Exams 10/02/16 Completed Date of admission: 10/01/16 17:31 Primary care physician: Marco A Brown MD Consults: 10/01/16 18:23 Consult to Nutrition [CONS] Routine Comment: Consulting Provider: NUTRITION Reason for Dietary Consult: Diet Education 10/02/16 08:58 Consult to Interventional Radiology [CONS] Routine Consulting Provider: Radiology Interventional Cols Reason for Consult: Diagnostic paracentesis for suspected SBP. INR 1.6 Call Completed: Yes Hospital course: Mr. Rivera is a 51 year old male - Time Spent with Patient Total time spent providing and/or coordinating discharge services: - Constitutional Vitals: Temp Pulse Resp BP Pulse Ox 98.6 F 88 16 120/78 98 10/03/16 10:54 10/03/16 10:54 10/03/16 10:54 10/03/16 10:54 10/03/16 10:54 - Attending Attestation Continue lactulose I examined this patient and my medical decision-making was reviewed with the Resident Physician. I agree with the documented findings, disposition and treatment plan as described except to the extent set forth below.
[2016-10-03 10:55] VITALS: BP 120/78
--- NOTE | 2016-10-03 11:05 | Physician Discharge Referral ---
ExtendedCare Referral Info Transfer To: [facility] Provider in Charge after Transfer: PCP Institutional Level of Care: Skilled - Diagnosis (1) Hepatic encephalopathy Priority: Primary Status: Acute (2) Hyperammonemia Priority: Secondary Status: Acute (3) Hyponatremia Priority: Secondary Status: Chronic (4) Hypomagnesemia Priority: Secondary Status: Resolved (5) Cirrhosis of liver Priority: Secondary Status: Chronic - Transfer Medications Prescriptions: Lactulose 30 gm PO BID #60 Oxycodone HCl [Oxaydo] 5 mg PO Q6H PRN #20 tablet.orl PRN Reason: Pain Home Medications: Paliperidone [Paliperidone ER] 6 mg PO QAM 07/25/15 [History] Multivitamin [One Daily Essential] 1 each PO QAM 10/01/15 [History] Tamsulosin [Flomax] 0.4 mg PO HS 10/01/15 [History] Thiamine (B-1) [Vitamin B-1] 100 mg PO QAM 10/01/15 [History] Zinc Sulfate 220 mg PO QAM 10/01/15 [History] Rifaximin [Xifaxan] 400 mg PO BID #60 tablet 02/07/16 [Rx] lamoTRIgine [Lamictal] 100 mg PO QAM 02/24/16 [History] Acetaminophen [Tylenol] 325 mg PO Q6HR PRN 10/01/16 [History] Bumetanide [Bumex] 1 mg PO BID 10/01/16 [History] Folic Acid 1 mg PO QAM 10/01/16 [History] Melatonin 5 mg PO HS 10/01/16 [History] Pantoprazole Sodium [Protonix] 40 mg PO BID 10/01/16 [History] Spironolactone [Aldactone] 150 mg PO BID 10/01/16 [History] Tramadol HCl [Ultram] 50 mg PO BID PRN 10/01/16 [History] Lactulose 30 gm PO BID #60 10/03/16 [Rx] Oxycodone HCl [Oxaydo] 5 mg PO Q6H PRN #20 tablet.orl 10/03/16 [Rx] Allergies/Adverse Reactions: Allergies No Known Allergies Allergy (Verified 09/14/16 16:04) - Respiratory Orders Smoking Cessation: Smoking cessation has been advised. For more information, call the [place] Tobacco Quit Line at 6-809-WNEV-NOW. - Mobility Orders Ambulate - Rehabiliation Orders Rehab Potential: Fair - Diet Orders Cardiac CERTIFICATION: I certify that the transfer of the above named patient to an Extended Care Facility is necessary for the continuing treatment of the diagnosis listed. The above information is true and accurate reflection of patient's current condition. Confidential - Redisclosure prohibited without a patient's written consent.
== END 2016-10-03 13:00 | DRG 442 ==
LOC: EMEROO 13:39 → 2ANU 13:39
PROVIDERS: ADMIT Internal Medicine; ATTEND Internal Medicine

== ENCOUNTER 2016-10-16 13:07 | Inpatient (IN) ==
--- NOTE | 2016-10-16 13:18 | Emergency Department Note ---
Disposition Clinical Impression: Hyponatremia, Confusion Disposition: Admitted As Inpatient Referrals: Marco A Brown MD [Primary Care Provider] - Forms: ED Satisfaction Letter Time of Disposition: 15:10 Altered Mental Status HPI - General Chief Complaint: ED Altered Mental Status Stated Complaint: AMS, Elevated Ammonia Time Seen by Provider: 10/16/16 13:12 Source: patient, EMS Limitations: no limitations Nursing Notes Reviewed: Yes Vital Signs Reviewed: Yes - History of Present Illness HPI Narrative: 51-year-old [facility] in [facility] the [facility] due to altered mental status. Labs were checked his ammonia levels 89. Also states he hasn't had a bowel movement in 24 hours. Patient's abdomen is distended however he states it's not as bad as it usually is. Patient is in the process of being evaluated at [facility] for liver transplant. MD complaint: altered mental status, confusion Onset (ago): Just [employer] Timing confirmed by: caregiver Pain Severity: mild, moderate Context: alcohol abuse (In the past), liver disease Associated symptoms: Denies: fever, headaches - Related Data Home Medications Medication Instructions Recorded Confirmed Paliperidone [Paliperidone ER] 6 mg PO QAM 07/25/15 10/01/16 Multivitamin [One Daily Essential] 1 each PO QAM 10/01/15 10/01/16 Tamsulosin [Flomax] 0.4 mg PO 10/01/15 10/01/16 Thiamine (B-1) [Vitamin B-1] 100 mg PO QAM 10/01/15 10/01/16 Zinc Sulfate 220 mg PO QAM 10/01/15 10/01/16 lamoTRIgine [Lamictal] 100 mg PO QAM 02/24/16 10/01/16 Acetaminophen [Tylenol] 325 mg PO Q6HR PRN 10/01/16 10/01/16 Bumetanide [Bumex] 1 mg PO BID 10/01/16 10/01/16 Folic Acid 1 mg PO QAM 10/01/16 10/01/16 Melatonin 5 mg PO HS 10/01/16 10/01/16 Pantoprazole Sodium [Protonix] 40 mg PO BID 10/01/16 10/01/16 Spironolactone [Aldactone] 150 mg PO BID 10/01/16 10/01/16 Tramadol HCl [Ultram] 50 mg PO BID PRN 10/01/16 10/01/16 Previous Rx's Medication Instructions Recorded Rifaximin [Xifaxan] 400 mg PO BID #60 tablet 02/07/16 Lactulose 30 gm PO BID #60 10/03/16 Oxycodone HCl [Oxaydo] 5 mg PO Q6H PRN #20 tablet.orl 10/03/16 Allergies Allergy/AdvReac Type Severity Reaction Status Date / Time No Known Allergies Allergy Verified 09/14/16 16:04 All systems ED: reviewed and negative except as stated. Constitutional: Denies: fever, chills, weakness, weight change Eyes: Denies: eye pain, eye discharge, vision change ENT ED: Denies: ear pain, throat pain, dental pain, hearing loss, epistaxis, congestion, dysphagia Cardiovascular: Denies: chest pain, palpitations, dyspnea on exertion, edema, syncope Respiratory: Denies: cough, dyspnea, wheezes, hemoptysis, stridor Gastrointestinal: Reports: abdominal pain. Denies: nausea, vomiting, diarrhea, constipation, hematemesis, melena, hematochezia Genitourinary: Denies: urgency, dysuria, frequency, hematuria Musculoskeletal: Denies: back pain, neck pain, arthralgia, myalgia Integumentary: Denies: rash, abrasion, lesions Neurological: Reports: confusion. Denies: headache, weakness, numbness, paresthesias, abnormal gait, vertigo Psychiatric: Denies: anxiety, depression, suicidal thoughts, homicidal thoughts , auditory hallucinations, visual hallucinations Endocrine: Denies: fatigue Hematological/Lymphatic: Denies: easy bleeding, easy bruising Allergic/Immunologic: Denies: facial swelling, urticaria Past Medical History - Past Medical History Medical history: Reports: arthritis, cirrhosis, CHF, COPD, GERD, hyperlipidemia , hypertension, liver disease, osteoporosis, seizures Surgical history: Reports: orthopedic, other Psychiatric history: Reports: depression, schizophrenia - Social History Smoking Status: Never smoker Smokeless Tobacco Status: No Alcohol use: Reports: none Drug use: Reports: none Physical Exam - General Limitations: no limitations General appearance: alert, in no apparent distress - Head Head exam: atraumatic, normocephalic, normal inspection - Eye Eye exam: Present: normal appearance, PERRL, EOMI - ENT ENT exam: normal exam, normal oropharynx, mucous membranes moist - Neck Neck exam: Present: normal inspection, full ROM, trachea midline - Chest Chest inspection: Present: normal inspection, symmetric chest wall rise - Respiratory Respiratory exam: Present: normal lung sounds bilaterally - Cardiovascular Cardiovascular exam: Present: regular rate, normal rhythm, normal heart sounds - Abdominal Exam Abdominal exam: Present: soft, tenderness. Absent: guarding, rebound - Extremities Exam Extremities exam: Present: normal inspection, full ROM. Absent: tenderness, pedal edema - Expanded Lower Extremity Exam Neurovascular/Tendon exam: Absent: motor deficit, sensory deficit, tendon deficit Gait: observed and normal - Back Exam Back exam: Present: normal inspection, full ROM. Absent: tenderness - Neurological Exam Neurological exam: Present: alert, oriented X3 - Psychiatric Psychiatric exam: Present: normal affect, normal mood - Skin Skin exam: Present: warm, dry, intact, normal color Course - Reevaluation(s) Reevaluation #1: Patient alcohol came back when 189, patient's in a prison and denies any alcohol intake. Repeat alcohol level was 168. Time: 15:09 - Consultations Consultation #1: Discussed with Dr. Trevizo recommends normal saline infusion and recheck sodium. Time: 15:08 Consultation #2: Discussed with , admit. Time: 15:39 Vital Signs Temperature 97.5 F L 10/16/16 13:09 Pulse Rate 92 10/16/16 13:09 Respiratory Rate 16 10/16/16 13:09 Blood Pressure 97/63 10/16/16 13:09 O2 Sat by Pulse Oximetry 99 10/16/16 13:09 Temperature 97.5 F L 10/16/16 13:09 Pulse Rate 94 10/16/16 14:20 Respiratory Rate 16 10/16/16 14:20 Blood Pressure 111/67 10/16/16 14:20 O2 Sat by Pulse Oximetry 100 10/16/16 14:20 Oxygen Delivery Oxygen Delivery Room Air Altered Mental Status - Lab Data Lab results reviewed: Yes I reviewed the patient's lab results. Result diagrams: 10/16/16 13:32 10/16/16 13:32 Lab Results 10/16/16 10/16/16 10/16/16 Range/Units 13:32 13:32 13:32 WBC 9.0 (4.3-11.1) K/mcL RBC 3.24 L (4.19-5.50) M/mcL Hgb 11.1 L (12.9-16.9) g/dL Hct 31.6 L (37.5-50.1) % MCV 97.5 (83.0-100.0) fL MCH 34.3 H (28.0-33.3) pg MCHC 35.1 (31.6-35.5) g/dL RDW 14.7 H (11.5-14.5) % Plt Count 79 L (140-400) K/mcL MPV 8.2 L (9.4-12.4) fL Immature Gran % 1.1 (0-4) % Seg Neutrophils % 62.5 % Lymphocytes % 11.7 % Monocytes % 20.4 % Eosinophils % 4.0 % Basophils % 0.3 % Neutrophils # 5.6 (1.6-8.9) K/mcL Lymphocytes # 1.1 (0.6-4.6) K/mcL Monocytes # 1.8 H (0.0-1.3) K/mcL Eosinophils # 0.4 (0.0-0.6) K/mcL Basophils # 0.0 (0.0-0.2) K/mcL Immature Plt Fraction 1.3 (1.1-6.1) % PT 14.6 H (9.4-12.1) Seconds INR 1.3 APTT 34.0 (26.0-36.0) Seconds Sodium 118 L* (136-145) mEq/L Potassium 4.9 H (3.5-4.5) mEq/L Chloride 92 L (98-109) mEq/L Carbon Dioxide 19 (19-29) mEq/L BUN 17 (8-26) mg/dL Creatinine 0.67 L (0.72-1.25) mg/dL Est GFR ( Amer) > 60 (> 60) Est GFR (Non-Af Amer) > 60 (> 60) BUN/Creatinine Ratio 25 (6-26) Glucose 112 H (70-99) mg/dL Calculated Osmolality 248 L (280-300) Calcium 9.0 (8.6-10.8) mg/dL Total Bilirubin 3.8 H (0.2-1.2) mg/dL Direct Bilirubin 2.0 H (0.0-0.5) mg/dL Indirect Bilirubin 1.8 H (0.0-1.2) mg/dL AST 79 H (5-34) Units/L ALT 66 H (0-55) Units/L Alkaline Phosphatase 196 H (38-126) Units/L Ammonia (18-72) mcmol/L Troponin I (0-0.03) ng/mL Serum Total Protein 6.6 (6.0-8.3) g/dL Albumin 2.6 L (3.5-5.0) g/dL Globulin 4.0 H (2.4-3.5) g/dL Albumin/Globulin Ratio 0.7 L (1.1-2.2) Urine Color (Yellow) Urine Clarity (Clear) Urine pH (5.0-8.0) pH Units Ur Specific [place] (1.010-1.025) Urine Protein (Neg-Trace) mg/dL Urine Glucose (UA) (Normal) mg/dL Urine Ketones (Negative) mg/dL Urine Blood (Negative) Urine Nitrite (Negative) Urine Bilirubin (Negative) Urine Urobilinogen (Normal) mg/dL Ur Leukocyte Esterase (Negative) Ur Culture Indicated? (NO) Urine Opiates Screen (Tupvde=895) ng/mL Ur Barbiturates Screen (Dixcfr=796) ng/mL Ur Phencyclidine Scrn (Cutoff=25) ng/mL Ur Amphetamines Screen (Gwbnwr=5627) ng/mL U Benzodiazepines Scrn (Cqtbwf=992) ng/mL Urine Cocaine Screen (Cutoff= 300) ng/mL U Marijuana (THC) Screen (Cutoff = 50) ng/mL Ethyl Alcohol 189 H (0-10) mg/dL 10/16/16 10/16/16 10/16/16 Range/Units 13:32 13:32 15:04 WBC (4.3-11.1) K/mcL RBC (4.19-5.50) M/mcL Hgb (12.9-16.9) g/dL Hct (37.5-50.1) % MCV (83.0-100.0) fL MCH (28.0-33.3) pg MCHC (31.6-35.5) g/dL RDW (11.5-14.5) % Plt Count (140-400) K/mcL MPV (9.4-12.4) fL Immature Gran % (0-4) % Seg Neutrophils % % Lymphocytes % % Monocytes % % Eosinophils % % Basophils % % Neutrophils # (1.6-8.9) K/mcL Lymphocytes # (0.6-4.6) K/mcL Monocytes # (0.0-1.3) K/mcL Eosinophils # (0.0-0.6) K/mcL Basophils # (0.0-0.2) K/mcL Immature Plt Fraction (1.1-6.1) % PT (9.4-12.1) Seconds INR APTT (26.0-36.0) Seconds Sodium (136-145) mEq/L Potassium (3.5-4.5) mEq/L Chloride (98-109) mEq/L Carbon Dioxide (19-29) mEq/L BUN (8-26) mg/dL Creatinine (0.72-1.25) mg/dL Est GFR ( Amer) (> 60) Est GFR (Non-Af Amer) (> 60) BUN/Creatinine Ratio (6-26) Glucose (70-99) mg/dL Calculated Osmolality (280-300) Calcium (8.6-10.8) mg/dL Total Bilirubin (0.2-1.2) mg/dL Direct Bilirubin (0.0-0.5) mg/dL Indirect Bilirubin (0.0-1.2) mg/dL AST (5-34) Units/L ALT (0-55) Units/L Alkaline Phosphatase (38-126) Units/L Ammonia 72 (18-72) mcmol/L Troponin I 0.00 (0-0.03) ng/mL Serum Total Protein (6.0-8.3) g/dL Albumin (3.5-5.0) g/dL Globulin (2.4-3.5) g/dL Albumin/Globulin Ratio (1.1-2.2) Urine Color Dark Yellow (Yellow) Urine Clarity Clear (Clear) Urine pH 6.0 (5.0-8.0) pH Units Ur Specific [place] 1.024 (1.010-1.025) Urine Protein Negative (Neg-Trace) mg/dL Urine Glucose (UA) Normal (Normal) mg/dL Urine Ketones Negative (Negative) mg/dL Urine Blood Negative (Negative) Urine Nitrite Negative (Negative) Urine Bilirubin Negative (Negative) Urine Urobilinogen Normal (Normal) mg/dL Ur Leukocyte Esterase Negative (Negative) Ur Culture Indicated? NO (NO) Urine Opiates Screen (Cflkca=059) ng/mL Ur Barbiturates Screen (Lnkayp=264) ng/mL Ur Phencyclidine Scrn (Cutoff=25) ng/mL Ur Amphetamines Screen (Eixzcl=3369) ng/mL U Benzodiazepines Scrn (Eocejz=734) ng/mL Urine Cocaine Screen (Cutoff= 300) ng/mL U Marijuana (THC) Screen (Cutoff = 50) ng/mL Ethyl Alcohol (0-10) mg/dL 10/16/16 10/16/16 Range/Units 15:04 15:15 WBC (4.3-11.1) K/mcL RBC (4.19-5.50) M/mcL Hgb (12.9-16.9) g/dL Hct (37.5-50.1) % MCV (83.0-100.0) fL MCH (28.0-33.3) pg MCHC (31.6-35.5) g/dL RDW (11.5-14.5) % Plt Count (140-400) K/mcL MPV (9.4-12.4) fL Immature Gran % (0-4) % Seg Neutrophils % % Lymphocytes % % Monocytes % % Eosinophils % % Basophils % % Neutrophils # (1.6-8.9) K/mcL Lymphocytes # (0.6-4.6) K/mcL Monocytes # (0.0-1.3) K/mcL Eosinophils # (0.0-0.6) K/mcL Basophils # (0.0-0.2) K/mcL Immature Plt Fraction (1.1-6.1) % PT (9.4-12.1) Seconds INR APTT (26.0-36.0) Seconds Sodium (136-145) mEq/L Potassium (3.5-4.5) mEq/L Chloride (98-109) mEq/L Carbon Dioxide (19-29) mEq/L BUN (8-26) mg/dL Creatinine (0.72-1.25) mg/dL Est GFR ( Amer) (> 60) Est GFR (Non-Af Amer) (> 60) BUN/Creatinine Ratio (6-26) Glucose (70-99) mg/dL Calculated Osmolality (280-300) Calcium (8.6-10.8) mg/dL Total Bilirubin (0.2-1.2) mg/dL Direct Bilirubin (0.0-0.5) mg/dL Indirect Bilirubin (0.0-1.2) mg/dL AST (5-34) Units/L ALT (0-55) Units/L Alkaline Phosphatase (38-126) Units/L Ammonia (18-72) mcmol/L Troponin I (0-0.03) ng/mL Serum Total Protein (6.0-8.3) g/dL Albumin (3.5-5.0) g/dL Globulin (2.4-3.5) g/dL Albumin/Globulin Ratio (1.1-2.2) Urine Color (Yellow) Urine Clarity (Clear) Urine pH (5.0-8.0) pH Units Ur Specific [place] (1.010-1.025) Urine Protein (Neg-Trace) mg/dL Urine Glucose (UA) (Normal) mg/dL Urine Ketones (Negative) mg/dL Urine Blood (Negative) Urine Nitrite (Negative) Urine Bilirubin (Negative) Urine Urobilinogen (Normal) mg/dL Ur Leukocyte Esterase (Negative) Ur Culture Indicated? (NO) Urine Opiates Screen Positive H (Xchveh=327) ng/mL Ur Barbiturates Screen Negative (Asiizo=742) ng/mL Ur Phencyclidine Scrn Negative (Cutoff=25) ng/mL Ur Amphetamines Screen Positive H (Imniil=5117) ng/mL U Benzodiazepines Scrn Negative (Pxoroy=413) ng/mL Urine Cocaine Screen Negative (Cutoff= 300) ng/mL U Marijuana (THC) Screen Negative (Cutoff = 50) ng/mL Ethyl Alcohol 168 H (0-10) mg/dL - Radiology Data Radiology results reviewed: Yes I reviewed the patient's radiology results. TPA Checklist - LKW: 3-4.5 hrs Add. Warnings/Precautions Patient/family understanding: The patient/family members have been counseled and understood the risk, benefit , and alternatives of treatment.
[2016-10-16] MEDS ORDERED: Ondansetron 4 MG/2 ML VIAL IVP ONE (13:33)
[2016-10-16] MEDS ORDERED: *HR* Morphine 2 MG/ML SYRINGE IVP ONE ×2 (13:33→15:33)
[2016-10-16 13:38] LABS: Mean Corpuscular Volume 97.5 fL (83.0-100.0); Red Cell Distribution Width 14.7 % (11.5-14.5)
[2016-10-16 13:40] LABS: Basophils % 0.3 %; Eosinophils # 0.4 K/mcL (0.0-0.6); Hematocrit 31.6 % (37.5-50.1); Hemoglobin 11.1 g/dL (12.9-16.9); Immature Granulocytes % 1.1 % (0-4); Immature Platelets 1.3 % (1.1-6.1); Lymphocytes # 1.1 K/mcL (0.6-4.6); Lymphocytes % 11.7 %; Mean Corpuscular HGB Conc 35.1 g/dL (31.6-35.5); Mean Corpuscular Hemoglobin 34.3 pg (28.0-33.3); Mean Platelet Volume 8.2 fL (9.4-12.4); Monocytes # 1.8 K/mcL (0.0-1.3); Monocytes % 20.4 %; Neutrophils # 5.6 K/mcL (1.6-8.9); Red Blood Count 3.24 M/mcL (4.19-5.50); Segmented Neutrophils % 62.5 %
[2016-10-16 13:43] LABS: INR 1.3; Prothrombin Time 14.6 Seconds (9.4-12.1)
[2016-10-16 13:51] LABS: Platelet Count 79 K/mcL (140-400)
[2016-10-16 13:53] LABS: Alanine Aminotransferase 66 Units/L (0-55); Albumin 2.6 g/dL (3.5-5.0); Albumin/Globulin Ratio 0.7 (1.1-2.2); Alkaline Phosphatase 196 Units/L (38-126); Aspartate Amino Transferase 79 Units/L (5-34); BUN/Creatinine Ratio 25 (6-26); Bilirubin,Indirect 1.8 mg/dL (0.0-1.2); Bilirubin,Total 3.8 mg/dL (0.2-1.2); Blood Urea Nitrogen 17 mg/dL (8-26); Carbon Dioxide 19 mEq/L (19-29); Chloride 92 mEq/L (98-109); Glucose 112 mg/dL (70-99); Osmolality,Calculated 248 (280-300); Potassium 4.9 mEq/L (3.5-4.5); Total Protein 6.6 g/dL (6.0-8.3); eGFR For African Americans > 60 (> 60); eGFR For Non-African Americans > 60 (> 60)
[2016-10-16 13:58] LABS: Sodium 118 mEq/L (136-145)
[2016-10-16 14:38] LABS: Ethanol 189 mg/dL (0-10)
[2016-10-16 15:11] LABS: Bilirubin,Urine Negative (Negative); Blood,Urine Negative (Negative); Clarity,Urine Clear (Clear); Color,Urine Dark Yellow (Yellow); Glucose,Urine (UA) Normal (Normal); Ketones,Urine Negative (Negative); Leukocyte Esterase,Urine Negative (Negative); Nitrite,Urine Negative (Negative); Protein,Urine Negative (Neg-Trace); Specific Gravity,Urine 1.024 (1.010-1.025); Urobilinogen,Urine Normal (Normal)
[2016-10-16 15:17] LABS: Amphetamine Screen,Urine Positive ng/mL (Cutoff=1000); Barbiturate Screen,Urine Negative ng/mL (Cutoff=200); Benzodiazepines Screen,Urine Negative ng/mL (Cutoff=200); Cannabinoid Screen,Urine Negative ng/mL (Cutoff = 50); Cocaine Screen,Urine Negative ng/mL (Cutoff= 300); Opiate Screen,Urine Positive ng/mL (Cutoff=300); Phencyclidine Screen,Urine Negative ng/mL (Cutoff=25)
[2016-10-16] MEDS: 0.9 % Sodium Chloride 1,000 ML IVC SCH (15:37)
--- NOTE | 2016-10-16 16:18 | Electrocardiograph Report ---
[facility] Test Date: 2016-10-16 Pat Name: Ochoa Rivera Department: 104 Room: Gender: M Bat Boy/Girl: : 1965 Requested By: Gary Andino Order Number: [id number] Reading MD: Sabrina Rodriguez DO Measurements Intervals [place] Rate: 89 P: 46 NM: 193 QRS: -9 QRSD: 102 T: 28 QT: 390 QTc: 436 Interpretive Statements SINUS RHYTHM WARNING: DATA QUALITY MAY AFFECT INTERPRETATION Left axis deviation Electronically Signed On 10-16-2016 16:16:56 EDT by Sabrina Rodriguez DO
--- NOTE | 2016-10-16 16:46 | Event Note ---
Date of Encounter: 10/16/16 Time of Encounter: 16:44 1. Hepatic encephalopathy Start lactulose next 2. Severe hyponatremia, likely hypovolemic hyponatremia ER physician consulted nephrology and normal saline was recommended. Monitor sodium and did not increase faster than 0.5 mEq per hour or more than 8 mEq in 24 hours. Check urine sodium and urine osmolality 3. Elevated alcohol level, the patient denies drinking any alcohol. Start Librium, Ativan as needed per scale CIWA 4. History of cirrhosis Omeprazole for GI prophylaxis and sequential compression devices for DVT prophylaxis. The patient will be admitted as inpatient, expected to stay more than 2 midnights. Full code. Time spent on this admission 40 minutes. H&P will be completed by ELENI Iverson
[2016-10-16] MEDS ORDERED: *HR* LORazepam 2 MG/ML VIAL IVP PRN ×3 (16:50)
[2016-10-16] MEDS ORDERED: Naloxone 0.4 MG/ML INJ IVP PRN (17:16)
[2016-10-16] MEDS ORDERED: Acetaminophen 325 MG TABLET PO PRN (17:16)
--- NOTE | 2016-10-16 18:33 | Internal Med History&Physical ---
<Itz Iverson - Last Filed: 10/16/16 19:23> Date of Encounter: 10/16/16 Time of Encounter: 15:30 Assessment and Plan (1) Altered mental status Current visit: Yes Status: Acute Patient presents with acute altered mental status related to his current cirrhosis and hyperammonemia. Patient has a history of AMS and hyperammonemia and was last hospitalized on 10/01/16 for similar symptoms. Patient to receive 20 gm of lactulose TID PO with follow-up labs ordered to monitor ammonia levels. Patient placed as falls precautions/up with assist/bed rest with bathroom privileges with assist only due to AMS. Qualifiers: Altered mental status type: transient alteration of awareness Qualified Code(s): R40.4 - Transient alteration of awareness (2) Hyperammonemia Current visit: Yes Status: Acute Patient presents with acute hyperammonemia based on initial ammonia level of 89 on admission. Patient also states he has been constipated for 1 week. Lactulose 20 gm PO TID ordered daily. Follow-up labs ordered to monitor patient's ammonia level. Will continue to monitor patient's neurologic status. (3) Abdominal pain Current visit: Yes Status: Acute Patient presents with acute abdominal pain related to cirrhosis and ascites. Patient to receive stair-step medication for pain medication as needed. Qualifiers: Abdominal location: generalized Qualified Code(s): R10.84 - Generalized abdominal pain (4) Constipation Current visit: Yes Status: Acute Patient presents with acute constipation that he reports has taken place for one week. Lactulose 20 gm PO TID ordered for patient's constipation and hyperammonemia. Qualifiers: Constipation type: unspecified constipation type Qualified Code(s): K59.00 - Constipation, unspecified (5) Nausea Current visit: Yes Status: Acute Patient presents with acute nausea related to current abdominal pain and distention. Patient denies episodes of vomiting. IV Zofran ordered when necessary. (6) Hyponatremia Current visit: Yes Status: Acute Patient presents with acute hyponatremia. Patient's sodium level was 118 on admission to the ED. Urine sodium and osmolality ordered. Follow-up sodium levels ordered Q4. Patient to receive IV fluids 0.9 NS at 80 mL/HR. (7) Elevated blood alcohol level Current visit: Yes Status: Acute Patient presents with elevated blood alcohol level of 168 but denies use of alcohol. During previous admission on 10/01/16, patient stated that he used alcohol to deal with his psychiatric issues of depression and schizophrenia. Librium and ativan ordered per CIWA scale. Qualifiers: Qualified Code(s): Y90.6 - Blood alcohol level of 120-199 mg/100 ml (8) CHF (congestive heart failure) Current visit: Yes Status: Chronic Patient presents with history of chronic CHF. Will monitor patient's IV fluids judiciously and order renal diet with 1.5L fluid restriction daily once patient is no longer NPO. Will monitor patient's I&O and daily weight. Qualifiers: Congestive heart failure type: diastolic Congestive heart failure chronicity: chronic Qualified Code(s): I50.32 - Chronic diastolic (congestive ) heart failure (9) GERD (gastroesophageal reflux disease) Current visit: Yes Status: Chronic Patient presents with history of chronic gastroesophageal reflux disease. IVP Protonix 40 mg daily ordered. IV Zofran ordered when necessary. Qualifiers: Esophagitis presence: with esophagitis Qualified Code(s): K21.0 - Gastro- esophageal reflux disease with esophagitis (10) DVT prophylaxis Current visit: Yes Status: Acute Patient to be placed on DVT prophylaxis due to current admission protocol and bed rest status. Intermittent SCDs to be placed on patient's bilateral LEs. Internal Medicine - H&P: HPI Chief complaint: Altered mental status/Hyperammonemia Admitted From: Emergency Dept Plans for Post Hospital Care: Transfer [facility] History of present illness: Mr. Rivera is a 51 year old male who presents from the ED with chief complaint of altered mental status and hyperammonemia. Patient was sent from the skilled nursing with constipation for 1 week and distended abdomen which he states is better since having 5 liters of fluid removed recently. Patient was last hospitalized on 10/01/16 for bacterial peritonitis, hepatic encephalopathy, and abdominal pain. Patient states this began 2 weeks ago and has been constipated for 1 week. He reports his altered mental status comes and goes. During this admission, patient is alert and oriented 3. Patient has no known allergies. Patient's medical history includes arthritis, cirrhosis, CHF, COPD, GERD, HLD, HTN, liver disease, osteoporosis, and seizures. Patient also has a psychiatric history of depression and schizophrenia. Patient's ammonia level on admission is 89. Patient to receive lactulose. Patient will be placed on continuous cardiac telemetry and supplemental O2 with continuous SPO2 monitoring. Patient will also be nothing by mouth. Patient is a moderate risk for morbidity based on current symptomology replaces inpatient status with follow-up orders for ammonia level. Patient's sodium level on admission to the ED was 118 and he will receive IV NS with follow-up labs ordered to monitor sodium levels. Patient to be monitored closely. Time spent with patient >40 minutes. Past Med Surg Social Fam HX - Past Medical History Source: patient Medical history: arthritis, cirrhosis, CHF, COPD, GERD, hyperlipidemia, hypertension, liver disease, osteoporosis, seizures Psychiatric history: depression, schizophrenia - Past Surgical History Surgical History: orthopedic, other - Social History Smoking Status: Never smoker Smokeless Tobacco Status: No Alcohol use: none Drug use: none Current living situation: Assisted Living Activity Level: Independent ambulation Recent Out of Country Travel Within the Last 8 Weeks: No Exposure or Possible Exposure to Illness During Travel: No - Family History Mother Race: Family Member Ethnicity: Non- Living Status: Age at : 78 Cause of : COPD Hx Family Cardiac Disorders: Yes Hx Family Respiratory Disorders: Yes (COPD) Hx Family Cancer: No Hx Family GI Disorders: No Hx Family Endocrine Disorder: No Hx Family Neuromuscular Disorders: Yes (Polio, CVA) Hx Family Neurologic Disorders: No Hx Family HEENT Disorders: No Hx Family Autoimmune Disorders: No Father Race: Family Member Ethnicity: Non- Living Status: Cause of : Accident Hx Family Cardiac Disorders: No Hx Family Respiratory Disorders: No Hx Family Cancer: No Hx Family GI Disorders: No Hx Family Endocrine Disorder: No Hx Family Neuromuscular Disorders: No Hx Family Neurologic Disorders: No Hx Family HEENT Disorders: No Hx Family Autoimmune Disorders: No Sister Race: Family Member Ethnicity: Non- Living Status: Still Living Hx Family Cancer: Yes (thyroid cancer) Hx Family Endocrine Disorder: Yes Internal Medicine - H&P: Meds Paliperidone [Paliperidone ER] 6 mg PO QAM 07/25/15 [History] Multivitamin [One Daily Essential] 1 tab PO QAM 10/01/15 [History] Tamsulosin [Flomax] 0.4 mg PO 10/01/15 [History] Thiamine (B-1) [Vitamin B-1] 100 mg PO QAM 10/01/15 [History] Zinc Sulfate 220 mg PO QAM 10/01/15 [History] Rifaximin [Xifaxan] 400 mg PO BID #60 tablet 02/07/16 [Rx] lamoTRIgine [Lamictal] 100 mg PO QAM 02/24/16 [History] Acetaminophen [Tylenol] 325 mg PO Q6HR PRN 10/01/16 [History] Bumetanide [Bumex] 1 mg PO BID 10/01/16 [History] Folic Acid 1 mg PO QAM 10/01/16 [History] Melatonin 5 mg PO HS 10/01/16 [History] Pantoprazole Sodium [Protonix] 40 mg PO BID 10/01/16 [History] Spironolactone [Aldactone] 150 mg PO BID 10/01/16 [History] Tramadol HCl [Ultram] 50 mg PO BID PRN 10/01/16 [History] Lactulose 30 gm PO BID #60 10/03/16 [Rx] Oxycodone HCl [Oxaydo] 5 mg PO Q6H PRN #20 tablet.orl 10/03/16 [Rx] Allergies No Known Allergies Allergy (Verified 09/14/16 16:04) All Systems PM: A 10-system review of systems was performed and is negative for pertinent findings except as documented above in the HPI. - Constitutional Constitutional: no chills, no fever(s), no night sweats - EENT Eyes: no change in vision, no discharge, no pain, no photophobia Ears: no ear discharge, no ear pain, no tinnitus Nose, mouth and throat: no dysphagia, no nasal discharge, no neck pain, no sore throat - Breasts Breasts: as per HPI - Cardiovascular Cardiovascular ROS IM: no chest pain, no diaphoresis, no dyspnea, no lightheadedness, no palpitations, no syncope - Respiratory Respiratory: no cough, no dyspnea, no wheezing, no excessive phlegm production - Gastrointestinal Gastrointestinal: as per HPI, abdominal pain, change in bowel habits, constipation, nausea - Genitourinary Genitourinary ROS male: as per HPI - Musculoskeletal Musculoskeletal ROS IM: no numbness, no tingling - Integumentary Integumentary IM: no rash, no unusual bruising - Neurological Neurological ROS: as per HPI, behavioral changes, confusion, no convulsions, no focal weakness, no numbness, no tingling, no tremor(s) - Psychiatric Psychiatric: as per HPI - Endocrine Endocrine IM: as per HPI - Hematologic/Lymphatic Hematologic/Lymphatic: no easy bruising - Allergic/Immunologic Allergic/Immunologic: as per HPI - Constitutional Vitals: Temp Pulse Resp BP Pulse Ox 97.6 F 109 16 101/64 99 10/16/16 18:06 10/16/16 18:06 10/16/16 18:06 10/16/16 18:06 10/16/16 18:06 General appearance: Present: disheveled, A&O X 3, no acute distress, answers questions appropriately - Head Head exam: Present: atraumatic, normocephalic - Eye Eye exam: Present: PERRL, conjuntiva pink, sclera anicteric Pupils: Present: PERRL - ENT ENT exam: Present: normal exam, normal external ear exam - Neck Neck exam general surgery: Present: supple, trachea midline. Absent: lymphadenopathy - Respiratory Respiratory exam: Present: CTAB. Absent: accessory muscle use, rales, rhonchi, wheezes - Cardiovascular Cardiovascular exam: Present: RRR, +S1, +S2. Absent: diastolic murmur, gallop, rubs, systolic murmur - GI/Abdominal GI/Abdominal exam: Present: distended, soft, tenderness - Rectal Rectal exam: Present: deferred - Additional comments: exam deferred. - Extremities Exam Extremities exam: Present: warm, radial pulses palpable and symetrical. Absent : calf tenderness, cyanotic, pedal edema - Back Exam Back exam: Present: normal inspection - Neurological Exam Neurological exam: Present: CN II-XII intact, oriented X3. Absent: pronater drift, facial droop, speech deficit - Psychiatric Psychiatric exam: Present: flat affect - Skin Skin exam: Present: dry, intact Internal Med - H&P Results - Labs CBC & Chem 7: 10/16/16 13:32 10/16/16 18:33 - Diagnostic Studies Chest x-ray Additional comments: Impressions Chest X-Ray 10/16/16 13:13 IMPRESSION: Right basilar airspace, slightly increased compared to the prior study, which likely represents atelectasis or pneumonia with a small pleural effusion. D/ / Steve Tse MD / Steve Tse MD Interpreting Provider: Steve Tse MD CT scan - abdomen Additional comments: Impressions Abdomen/Pelvis CT 10/16/16 13:13 IMPRESSION: 1. No acute process 2. Cirrhosis with findings of portal hypertension including ascites, mesenteric and retroperitoneal edema, and collateral vessels with paraesophageal varices 3. Cholelithiasis 4. Colonic diverticulosis 5. Stable loculated right pleural effusion D/ / Twan Pablo MD / Twan Pablo MD Interpreting Provider: Twan Pablo MD CT scan - head Additional comments: Impressions Head CT 10/16/16 13:13 IMPRESSION: No acute intracranial abnormality. D/ / Mihir Sanchez MD / Mihir Sanchez MD Interpreting Provider: Mihir Sanchez MD <Young Amaro H - Last Filed: 10/17/16 21:29> Date of Encounter: 10/17/16 Internal Medicine - H&P: HPI History of present illness: Mr. Rivera is a 51 year old male All Systems PM: A 10-system review of systems was performed and is negative for pertinent findings except as documented above in the HPI. - Constitutional Vitals: Temp Pulse Resp BP Pulse Ox 97.7 F 96 16 105/63 98 10/17/16 20:51 10/17/16 20:51 10/17/16 20:51 10/17/16 20:51 10/17/16 20:51 Internal Med - H&P Results - Labs CBC & Chem 7: 10/17/16 02:04 10/17/16 05:56 Labs: Short CBC 10/17/16 Range/Units 02:04 WBC 5.4 (4.3-11.1) K/mcL Hgb 10.1 L (12.9-16.9) g/dL Hct 28.6 L (37.5-50.1) % Plt Count 73 L (140-400) K/mcL Neutrophils # 3.1 (1.6-8.9) K/mcL BMP 10/16/16 10/17/16 10/17/16 23:06 02:04 02:04 Sodium 120 L* 120 L* 122 L Potassium 5.1 H Chloride 95 L Carbon Dioxide 21 BUN 16 Creatinine 0.69 L Glucose 112 H Calcium 8.7 10/17/16 05:56 Sodium 119 L* Potassium Chloride Carbon Dioxide BUN Creatinine Glucose Calcium - Attending Attestation 1. Hepatic encephalopathy Start lactulose next 2. Severe hyponatremia, likely hypovolemic hyponatremia ER physician consulted nephrology and normal saline was recommended. Monitor sodium and did not increase faster than 0.5 mEq per hour or more than 8 mEq in 24 hours. Check urine sodium and urine osmolality 3. Elevated alcohol level, the patient denies drinking any alcohol. Start Librium, Ativan as needed per scale CIWA 4. History of cirrhosis Omeprazole for GI prophylaxis and sequential compression devices for DVT prophylaxis. The patient will be admitted as inpatient, expected to stay more than 2 midnights. DNRcc A DNI Time spent on this admission 40 minutes. For this encounter, I have reviewed the PATIENT FLOW COORDINATOR or PA documentation, treatment plan, and medical decision making; and I have had face to face time with this patient.
[2016-10-16] MEDS: Thiamine (B-1) 100 MG, Folic Acid 1 MG, MVI, adult with vitamin K 10 ML in 0.9 % Sodi... IVPB SCH (19:35)
[2016-10-16] MEDS: Lactulose Oral Soln 20 GM/30 ML UDC PO SCH (19:36)
[2016-10-16] MEDS: *HR* HYDROcodone/Acet 5/325 mg TABLET PO PRN (19:36)
[2016-10-16] MEDS: Thiamine (B-1) 100 MG TABLET PO SCH (19:37)
[2016-10-16] MEDS: Folic Acid 1 MG TABLET PO SCH (19:37)
[2016-10-16] MEDS: Pantoprazole 40 MG VIAL IVP SCH (19:43)
[2016-10-16] MEDS ORDERED: MELATONIN 5 MG PO SCH (21:00)
[2016-10-17] MEDS: Lactulose Oral Soln 20 GM/30 ML UDC PO SCH ×4 (00:21→20:33)
[2016-10-17] MEDS: Melatonin 3 MG TABLET PO SCH ×2 (00:29→20:33)
[2016-10-17] MEDS: Bumetanide 1 MG TABLET PO SCH ×3 (01:58→20:33)
[2016-10-17 02:17] LABS: Mean Corpuscular Volume 97.3 fL (83.0-100.0)
[2016-10-17 02:20] LABS: Basophils % 0.6 %; Eosinophils # 0.2 K/mcL (0.0-0.6); Eosinophils % 4.3 %; Hematocrit 28.6 % (37.5-50.1); Hemoglobin 10.1 g/dL (12.9-16.9); Immature Granulocytes % 0.9 % (0-4); Lymphocytes # 0.9 K/mcL (0.6-4.6); Mean Corpuscular HGB Conc 35.3 g/dL (31.6-35.5); Mean Corpuscular Hemoglobin 34.4 pg (28.0-33.3); Mean Platelet Volume 9.1 fL (9.4-12.4); Monocytes # 1.1 K/mcL (0.0-1.3); Monocytes % 20.7 %; Neutrophils # 3.1 K/mcL (1.6-8.9); Red Blood Count 2.94 M/mcL (4.19-5.50); Red Cell Distribution Width 14.8 % (11.5-14.5); Segmented Neutrophils % 56.5 %
[2016-10-17 02:32] LABS: Platelet Count 73 K/mcL (140-400)
[2016-10-17 02:33] LABS: BUN/Creatinine Ratio 23 (6-26); Blood Urea Nitrogen 16 mg/dL (8-26); Calcium 8.7 mg/dL (8.6-10.8); Carbon Dioxide 21 mEq/L (19-29); Chloride 95 mEq/L (98-109); Chol/HDL Ratio 3.3 (0-4.9); Cholesterol 170 mg/dL (< 200); Glucose 112 mg/dL (70-99); HDL Cholesterol 52 mg/dL (40-59); LDL Cholesterol,Calculated 109 mg/dL (0-99); Magnesium 1.6 mg/dL (1.6-2.6); Osmolality,Calculated 256 (280-300); Phosphorous 3.4 mg/dL (2.3-4.7); Potassium 5.1 mEq/L (3.5-4.5); Triglycerides 44 mg/dL (< 150); eGFR For African Americans > 60 (> 60); eGFR For Non-African Americans > 60 (> 60)
[2016-10-17 02:41] LABS: Sodium 122 mEq/L (136-145)
[2016-10-17 03:19] LABS: Platelet Estimate Decreased (Normal)
[2016-10-17] MEDS: 0.9 % Sodium Chloride 1,000 ML IVC SCH ×2 (03:32→17:23)
[2016-10-17] MEDS: Multivit/Ca/Min/Fe/FA 1 TAB TABLET PO SCH (09:46)
[2016-10-17] MEDS: *HR* HYDROcodone/Acet 5/325 mg TABLET PO PRN ×2 (09:46→14:58)
[2016-10-17] MEDS: Zinc Sulfate 220 MG CAPSULE PO SCH (09:46)
[2016-10-17] MEDS: lamoTRIgine 100 MG TABLET PO SCH (09:48)
[2016-10-17] MEDS: Thiamine (B-1) 100 MG TABLET PO SCH (09:48)
[2016-10-17] MEDS: Pantoprazole 40 MG VIAL IVP SCH (09:48)
[2016-10-17] MEDS: Folic Acid 1 MG TABLET PO SCH (09:48)
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
--- NOTE | 2016-10-17 13:44 | Internal Med Progress Note ---
Date of Encounter: 10/17/16 Time of Encounter: 10:15 - Assessment and plan (1) Acute encephalopathy Current Visit: Yes Status: Acute Assessment and plan: Acute encephalopathy, metabolic - secondary to end-stage liver cirrhosis, hyponatremia and hyperammonemia Continue Lactulose, Rifaximin, Spironolactone for ascites CT abdomen and pelvis - cirrhosis with findings of portal hypertension including ascites and mesenteric and retroperitoneal edema with periesophageal varices and stable right loculated pleural effusion EKG - sinus rhythm with left axis deviation with no acute ST-T changes CT head - no acute intracranial abnormality Sodium level - 119 Troponin - negative Total bilirubin - 3.8 Cardiac telemetry, labs in a.m., supportive care (2) Hyponatremia Current Visit: No Status: Chronic Assessment and plan: Acute on chronic severe hyponatremia - secondary to volume depletion and alcohol abuse - contributing to acute encephalopathy Continue IV Normal saline Nephrology consult Labs in a.m. (3) Hyperammonemia Current Visit: Yes Status: Acute Assessment and plan: Likely contributing to acute encephalopathy - continue lactulose (4) Cirrhosis Current Visit: No Status: Chronic Assessment and plan: End-stage liver cirrhosis with esophageal varices status post banding Follows up at [facility] for liver transplant evaluation Qualifiers: Hepatic cirrhosis type: alcoholic cirrhosis Ascites presence: without ascites Qualified Code(s): K70.30 - Alcoholic cirrhosis of liver without ascites (5) Esophageal varices in alcoholic cirrhosis Current Visit: No Status: Chronic Assessment and plan: History of esophageal varices status post banding (6) Elevated blood alcohol level Current Visit: Yes Status: Acute Assessment and plan: Chronic alcohol abuse Continue IV thiamine, folic acid, multivitamin tablet, Librium, Ativan IV as needed Alcohol cessation counseling needed Qualifiers: Blood alcohol level: 120-199 mg/100 ml Qualified Code(s): Y90.6 - Blood alcohol level of 120-199 mg/100 ml (7) Pancytopenia Current Visit: No Status: Chronic Assessment and plan: Secondary to end-stage liver cirrhosis (8) DVT prophylaxis Current Visit: Yes Status: Acute Assessment and plan: Continue SCDs, avoid anticoagulation due to liver disease - Time Spent With Patient 25 - 35 minutes - Subjective Interval history: Examined this morning. Patient is drowsy. Unable to provide any history. Requires stimulation to wake him up. Admitted to for acute encephalopathy. Ammonia level is elevated. Hyponatremia is persistent. No family members at bedside. No fever. Patient does have cirrhosis of liver. Alcohol level is 168 and drug screen is positive for amphetamines and opiates. No other acute events. - Constitutional Vitals: Temp Pulse Resp BP Pulse Ox 98.6 F 97 17 118/73 99 10/17/16 11:15 10/17/16 11:15 10/17/16 11:15 10/17/16 11:15 10/17/16 11:15 General appearance: Present: disheveled, no acute distress Exam: Patient is drowsy, require stimulation to wake him up. Unable to provide history. Does not verbalize well. Does not follow verbal commands, ill- appearing - Head Head exam: Present: atraumatic - Eye Eye exam: Present: scleral icterus - ENT ENT exam: Present: mucous membranes dry - Respiratory Respiratory exam: Present: decreased breath sounds (in both bases), rales (mild b/l). Absent: rhonchi, wheezes, tachypnea - Cardiovascular Cardiovascular exam: Present: RRR, +S1, +S2, systolic murmur - GI/Abdominal GI/Abdominal exam: Present: distended (Mild ascites present), soft. Absent: firm, tenderness Additional comments: ascites+ - Extremities Exam Extremities exam: Present: radial pulses palpable and symetrical. Absent: calf tenderness, cyanotic, pedal edema - Neurological Exam Additional comments: drowsy, unable to verbalize well, does not follow verbal commands, unable to provide history, unable to assess neuro exam at this time due to mental status Internal Medicine: Result - Labs CBC & Chem 7: 10/17/16 02:04 10/17/16 05:56 Labs: Short CBC 10/17/16 Range/Units 02:04 WBC 5.4 (4.3-11.1) K/mcL Hgb 10.1 L (12.9-16.9) g/dL Hct 28.6 L (37.5-50.1) % Plt Count 73 L (140-400) K/mcL Neutrophils # 3.1 (1.6-8.9) K/mcL BMP 10/16/16 10/16/16 10/17/16 18:33 23:06 02:04 Sodium 120 L* 120 L* 120 L* Potassium Chloride Carbon Dioxide BUN Creatinine Glucose Calcium 10/17/16 10/17/16 02:04 05:56 Sodium 122 L 119 L* Potassium 5.1 H Chloride 95 L Carbon Dioxide 21 BUN 16 Creatinine 0.69 L Glucose 112 H Calcium 8.7 - ABG Interpretation ABG results: PT/INR, D-dimer PT 14.6 Seconds (9.4-12.1) H 10/16/16 13:32 Consult Discharge Plan - Plan Referrals: Marco A Brown MD [Primary Care Provider] - (patient will follow up with [facility] )
[2016-10-17] MEDS: Thiamine (B-1) 100 MG, Folic Acid 1 MG, MVI, adult with vitamin K 10 ML in 0.9 % Sodi... IVPB SCH (17:23)
[2016-10-18 05:07] LABS: Basophils % 0.4 %; Mean Corpuscular Volume 96.5 fL (83.0-100.0); Monocytes % 20.7 %
[2016-10-18 05:08] LABS: Eosinophils # 0.3 K/mcL (0.0-0.6); Eosinophils % 4.5 %; Hematocrit 27.8 % (37.5-50.1); Immature Platelets 0.9 % (1.1-6.1); Lymphocytes # 0.7 K/mcL (0.6-4.6); Lymphocytes % 10.7 %; Mean Corpuscular Hemoglobin 34.7 pg (28.0-33.3); Mean Platelet Volume 8.5 fL (9.4-12.4); Monocytes # 1.4 K/mcL (0.0-1.3); Neutrophils # 4.3 K/mcL (1.6-8.9); Red Blood Count 2.88 M/mcL (4.19-5.50); Red Cell Distribution Width 14.9 % (11.5-14.5); Segmented Neutrophils % 62.7 %
[2016-10-18 05:25] LABS: Alanine Aminotransferase 52 Units/L (0-55); Albumin 2.2 g/dL (3.5-5.0); Albumin/Globulin Ratio 0.6 (1.1-2.2); Alkaline Phosphatase 175 Units/L (38-126); Aspartate Amino Transferase 66 Units/L (5-34); BUN/Creatinine Ratio 18 (6-26); Bilirubin,Total 3.7 mg/dL (0.2-1.2); Blood Urea Nitrogen 15 mg/dL (8-26); Calcium 8.5 mg/dL (8.6-10.8); Carbon Dioxide 24 mEq/L (19-29); Chloride 97 mEq/L (98-109); Globulin 3.6 g/dL (2.4-3.5); Glucose 104 mg/dL (70-99); Osmolality,Calculated 263 (280-300); Potassium 4.3 mEq/L (3.5-4.5); Sodium 126 mEq/L (136-145); Total Protein 5.8 g/dL (6.0-8.3); Uric Acid 4.4 mg/dL (3.5-7.2); eGFR For African Americans > 60 (> 60); eGFR For Non-African Americans > 60 (> 60)
[2016-10-18 05:32] LABS: Platelet Count 69 K/mcL (140-400)
[2016-10-18 05:33] LABS: Platelet Estimate Decreased (Normal)
[2016-10-18] MEDS: 0.9 % Sodium Chloride 1,000 ML IVC SCH ×2 (06:21→18:09)
--- NOTE | 2016-10-18 10:06 | Nephrology Progress Note ---
Date of Encounter: 10/18/16 Time of Encounter: 10:06 - Assessment and Plan (1) Hyponatremia Current Visit: Yes Status: Acute Slowly correcting. Continue IVF. (2) Hyperkalemia Current Visit: Yes Status: Acute Low K+ diet. Caution with spironolactone. (3) Acute encephalopathy Current Visit: Yes Status: Acute Likely d/t cirrhosis of the liver (4) Cirrhosis Current Visit: No Status: Acute As per primary Qualifiers: Hepatic cirrhosis type: alcoholic cirrhosis Ascites presence: with ascites Qualified Code(s): K70.31 - Alcoholic cirrhosis of liver with ascites Subjective Principal diagnosis: Hyponatremia Interval history: Pt was s/e. He was slow to speak but did not affirm N/V/D or recent seizure. He said that he has taken Lamictal for years. Objective - Vital Signs Vital signs: Vital Signs Temp Pulse Resp BP Pulse Ox 10/18/16 07:40 98.2 F 102 15 104/69 96 10/18/16 04:26 98.6 F 103 16 108/63 97 10/17/16 23:32 97.8 F 96 16 104/62 97 10/17/16 20:51 97.7 F 96 16 105/63 98 10/17/16 17:03 99 F 99 16 103/59 97 10/17/16 11:15 98.6 F 97 17 118/73 99 Intake and Output 10/17/16 10/18/16 10/18/16 23:59 07:59 15:59 Intake Total 1580 / 1580 1240 / 1240 Output Total 350 / 350 1400 / 1400 300 / 300 Balance 1230 / 1230 -160 / -160 -300 / -300 Intake: IV Fluids 1000 / 1000 1000 / 1000 0.9 % Sodium Chloride 1, 1000 / 1000 1000 / 1000 000 ML @ 80 mls/hr IVC . [id number] [facility] Rx#: [id number] Oral 580 / 580 240 / 240 Output: Urine 350 / 350 1400 / 1400 300 / 300 Other: Meal Dinner Percent of Meal Consumed 100% # Bowel Movements 0 Weight 79.5 kg Patient Weight 10/18/16 23:59 Weight 79.5 kg - General Appearance Exam: General appearance: appears started age, chronically ill, fatigue, frail EENT: mucous membranes moist Neck: supple Respiratory: clear Cardiology: no edema, regular rate, regular rhythm, normal S1, normal S2 Gastrointestinal: normoactive bowel sounds, no tenderness, no guarding, no organomegaly Integumentary: no rash, warm and dry Neurologic: confused, disoriented Musculoskeletal: no erythema, no cyanosis - Lab 10/18/16 04:44 10/18/16 04:44 Most recent lab results Calcium 8.5 mg/dL (8.6-10.8) L 10/18/16 04:44 Phosphorus 3.4 mg/dL (2.3-4.7) 10/17/16 02:04 Magnesium 1.6 mg/dL (1.6-2.6) 10/17/16 02:04 Urine Sodium 106.0 mEq/L 10/17/16 08:13 Consult Discharge Plan - Plan Referrals: Marco A Brown MD [Primary Care Provider] - (patient will follow up with [facility] )
--- NOTE | 2016-10-18 10:33 | Internal Med Progress Note ---
Date of Encounter: 10/18/16 Time of Encounter: 10:15 - Assessment and plan (1) Acute encephalopathy Current Visit: Yes Status: Acute Assessment and plan: Acute encephalopathy, metabolic - secondary to end-stage liver cirrhosis, hyponatremia and hyperammonemia - symptoms slowly improving Continue Lactulose, Rifaximin, Spironolactone for ascites CT abdomen and pelvis - cirrhosis with findings of portal hypertension including ascites and mesenteric and retroperitoneal edema with periesophageal varices and stable right loculated pleural effusion EKG - sinus rhythm with left axis deviation with no acute ST-T changes CT head - no acute intracranial abnormality Sodium level - 126 Troponin - negative Total bilirubin - 3.7 Cardiac telemetry, labs in a.m., supportive care (2) Hyponatremia Current Visit: No Status: Chronic Assessment and plan: Acute on chronic severe hyponatremia - secondary to volume depletion and alcohol abuse - contributing to acute encephalopathy - slowly improving Continue IV Normal saline Nephrology consult - appreciate input, recommendations reviewed Labs in a.m. (3) Hyperammonemia Current Visit: Yes Status: Acute Assessment and plan: Likely contributing to acute encephalopathy - continue lactulose (4) Cirrhosis Current Visit: No Status: Chronic Assessment and plan: End-stage liver cirrhosis secondary to alcohol abuse - with h/o esophageal varices s/p banding Follows up at [facility] for liver transplant evaluation Qualifiers: Hepatic cirrhosis type: alcoholic cirrhosis Ascites presence: without ascites Qualified Code(s): K70.30 - Alcoholic cirrhosis of liver without ascites (5) Esophageal varices in alcoholic cirrhosis Current Visit: No Status: Chronic Assessment and plan: History of esophageal varices status post banding (6) Elevated blood alcohol level Current Visit: Yes Status: Acute Assessment and plan: Chronic alcohol abuse Continue IV thiamine, folic acid, multivitamin tablet, Librium, Ativan IV as needed Alcohol cessation counseling Qualifiers: Blood alcohol level: 120-199 mg/100 ml Qualified Code(s): Y90.6 - Blood alcohol level of 120-199 mg/100 ml (7) Pancytopenia Current Visit: No Status: Chronic Assessment and plan: Secondary to end-stage liver cirrhosis (8) DVT prophylaxis Current Visit: Yes Status: Acute Assessment and plan: Continue SCDs, avoid anticoagulation due to liver disease and thrombocytopenia - Time Spent With Patient 25 - 35 minutes - Subjective Interval history: Examined this morning. Patient awake and alert. He is more responsive today. Tolerating oral diet. Hyponatremia is improving. No family members at bedside. No fever. Patient does have cirrhosis of liver. Alcohol level was elevated on admission. Drug screen is positive for amphetamines and opiates. No other acute events. Hemodynamically stable. - Constitutional Vitals: Temp Pulse Resp BP Pulse Ox 98.2 F 102 15 104/69 96 10/18/16 07:40 10/18/16 07:40 10/18/16 07:40 10/18/16 07:40 10/18/16 07:40 General appearance: Present: A&O X 3, no acute distress, answers questions appropriately Exam: Generalized weakness, chronically ill-appearing - Head Head exam: Present: atraumatic - Eye Eye exam: Present: EOMI - ENT ENT exam: Present: mucous membranes dry - Neck Neck exam general surgery: Present: supple - Respiratory Respiratory exam: Present: decreased breath sounds (In both bases). Absent: rales, rhonchi, wheezes, tachypnea - Cardiovascular Cardiovascular exam: Present: RRR, +S1, +S2, systolic murmur - GI/Abdominal GI/Abdominal exam: Present: distended (Ascites present), soft. Absent: firm, guarding, tenderness - Extremities Exam Extremities exam: Present: radial pulses palpable and symetrical. Absent: calf tenderness, cyanotic, pedal edema - Neurological Exam Neurological exam: Present: alert, oriented X3, no focal deficits. Absent: facial droop, speech deficit Additional comments: Awake and alert, more responsive today, able to verbalize and able to follow verbal commands, no obvious focal deficits Internal Medicine: Result - Labs CBC & Chem 7: 10/18/16 04:44 10/18/16 04:44 Labs: Short CBC 10/18/16 Range/Units 04:44 WBC 6.9 (4.3-11.1) K/mcL Hgb 10.0 L (12.9-16.9) g/dL Hct 27.8 L (37.5-50.1) % Plt Count 69 L (140-400) K/mcL Neutrophils # 4.3 (1.6-8.9) K/mcL BMP 10/18/16 04:44 Sodium 126 L D Potassium 4.3 Chloride 97 L Carbon Dioxide 24 BUN 15 Creatinine 0.82 Glucose 104 H Calcium 8.5 L Liver Function 10/18/16 Range/Units 04:44 Total Bilirubin 3.7 H (0.2-1.2) mg/dL AST 66 H (5-34) Units/L ALT 52 (0-55) Units/L Alkaline Phosphatase 175 H (38-126) Units/L Albumin 2.2 L (3.5-5.0) g/dL - ABG Interpretation ABG results: PT/INR, D-dimer PT 14.6 Seconds (9.4-12.1) H 10/16/16 13:32 Consult Discharge Plan - Plan Referrals: Marco A Brown MD [Primary Care Provider] - (patient will follow up with [facility] )
[2016-10-18] MEDS: Pantoprazole 40 MG VIAL IVP SCH (10:36)
[2016-10-18] MEDS: Zinc Sulfate 220 MG CAPSULE PO SCH (10:36)
[2016-10-18] MEDS: Thiamine (B-1) 100 MG TABLET PO SCH (10:36)
[2016-10-18] MEDS: Folic Acid 1 MG TABLET PO SCH (10:36)
[2016-10-18] MEDS: Multivit/Ca/Min/Fe/FA 1 TAB TABLET PO SCH (10:36)
[2016-10-18] MEDS: lamoTRIgine 100 MG TABLET PO SCH (10:36)
[2016-10-18] MEDS: Bumetanide 1 MG TABLET PO SCH ×2 (10:36→20:35)
[2016-10-18] MEDS: Lactulose Oral Soln 20 GM/30 ML UDC PO SCH ×3 (10:36→20:32)
[2016-10-18] MEDS: *HR* HYDROcodone/Acet 5/325 mg TABLET PO PRN (14:54)
[2016-10-18] MEDS: Thiamine (B-1) 100 MG, Folic Acid 1 MG, MVI, adult with vitamin K 10 ML in 0.9 % Sodi... IVPB SCH (18:10)
[2016-10-18] MEDS: Melatonin 3 MG TABLET PO SCH (20:32)
[2016-10-19 05:34] LABS: Hematocrit 28.3 % (37.5-50.1); Hemoglobin 9.7 g/dL (12.9-16.9); Immature Platelets 0.7 % (1.1-6.1); Mean Corpuscular HGB Conc 34.3 g/dL (31.6-35.5); Mean Corpuscular Hemoglobin 33.6 pg (28.0-33.3); Mean Corpuscular Volume 97.9 fL (83.0-100.0); Mean Platelet Volume 8.8 fL (9.4-12.4); Red Blood Count 2.89 M/mcL (4.19-5.50); Red Cell Distribution Width 14.8 % (11.5-14.5)
[2016-10-19 05:41] LABS: Platelet Count 67 K/mcL (140-400)
[2016-10-19 05:46] LABS: Alanine Aminotransferase 51 Units/L (0-55); Albumin 2.1 g/dL (3.5-5.0); Albumin/Globulin Ratio 0.6 (1.1-2.2); Alkaline Phosphatase 169 Units/L (38-126); Aspartate Amino Transferase 64 Units/L (5-34); BUN/Creatinine Ratio 26 (6-26); Bilirubin,Total 3.4 mg/dL (0.2-1.2); Blood Urea Nitrogen 21 mg/dL (8-26); Calcium 8.7 mg/dL (8.6-10.8); Carbon Dioxide 24 mEq/L (19-29); Chloride 96 mEq/L (98-109); Globulin 3.5 g/dL (2.4-3.5); Glucose 101 mg/dL (70-99); Osmolality,Calculated 261 (280-300); Sodium 124 mEq/L (136-145); Total Protein 5.6 g/dL (6.0-8.3); eGFR For African Americans > 60 (> 60); eGFR For Non-African Americans > 60 (> 60)
[2016-10-19 06:17] LABS: Eosinophils # 0.2 K/mcL (0.0-0.6); Lymphocytes # 0.9 K/mcL (0.6-4.6); Monocytes # 1.4 K/mcL (0.0-1.3); Neutrophils # 3.3 K/mcL (1.6-8.9); Platelet Estimate Decreased (Normal); Toxic Granulation Present (Not Present)
[2016-10-19] MEDS: Zinc Sulfate 220 MG CAPSULE PO SCH (09:11)
[2016-10-19] MEDS: Thiamine (B-1) 100 MG TABLET PO SCH (09:11)
[2016-10-19] MEDS: lamoTRIgine 100 MG TABLET PO SCH (09:11)
[2016-10-19] MEDS: Bumetanide 1 MG TABLET PO SCH ×2 (09:11→19:32)
[2016-10-19] MEDS: Folic Acid 1 MG TABLET PO SCH (09:11)
[2016-10-19] MEDS: Multivit/Ca/Min/Fe/FA 1 TAB TABLET PO SCH (09:11)
[2016-10-19] MEDS: Pantoprazole 40 MG VIAL IVP SCH (09:12)
[2016-10-19] MEDS: Lactulose Oral Soln 20 GM/30 ML UDC PO SCH ×3 (09:13→19:35)
[2016-10-19] MEDS: 0.9 % Sodium Chloride 1,000 ML IVC SCH ×2 (09:21→21:19)
--- NOTE | 2016-10-19 14:20 | Internal Med Progress Note ---
Date of Encounter: 10/19/16 Time of Encounter: 11:20 - Assessment and plan (1) Acute encephalopathy Current Visit: Yes Status: Acute Assessment and plan: Acute encephalopathy, metabolic - secondary to end-stage liver cirrhosis, hyponatremia and hyperammonemia - symptoms improving Continue Lactulose, Rifaximin, Spironolactone for ascites CT abdomen and pelvis - cirrhosis with findings of portal hypertension including ascites and mesenteric and retroperitoneal edema with periesophageal varices and stable right loculated pleural effusion EKG - sinus rhythm with left axis deviation with no acute ST-T changes CT head - no acute intracranial abnormality Sodium level - 124 Troponin - negative Total bilirubin - 3.4 Cardiac telemetry, labs in a.m., supportive care CIWA protocol, monitor for withdrawal symptoms (2) Hyponatremia Current Visit: Yes Status: Acute Assessment and plan: Acute on chronic severe hyponatremia - secondary to volume depletion and alcohol abuse - contributing to acute encephalopathy - slowly improving Sodium - 124 Continue IV Normal saline Nephrology consult - appreciate input, recommendations reviewed Labs in a.m. (3) Hyperammonemia Current Visit: Yes Status: Acute Assessment and plan: Likely contributing to acute encephalopathy - continue lactulose (4) Cirrhosis Current Visit: No Status: Chronic Assessment and plan: End-stage liver cirrhosis secondary to alcohol abuse - with h/o esophageal varices s/p banding Follows up at [facility] for liver transplant evaluation Qualifiers: Hepatic cirrhosis type: alcoholic cirrhosis Ascites presence: without ascites Qualified Code(s): K70.30 - Alcoholic cirrhosis of liver without ascites (5) Esophageal varices in alcoholic cirrhosis Current Visit: No Status: Chronic Assessment and plan: History of esophageal varices status post banding (6) Elevated blood alcohol level Current Visit: Yes Status: Acute Assessment and plan: Chronic alcohol abuse Continue IV thiamine, folic acid, multivitamin tablet, Librium, Ativan IV as needed CIWA protocol, monitor symptoms, Ativan IV as needed Alcohol cessation counseling Qualifiers: Blood alcohol level: 120-199 mg/100 ml Qualified Code(s): Y90.6 - Blood alcohol level of 120-199 mg/100 ml (7) Pancytopenia Current Visit: No Status: Chronic Assessment and plan: Secondary to end-stage liver cirrhosis (8) DVT prophylaxis Current Visit: Yes Status: Acute Assessment and plan: Continue SCDs, avoid anticoagulation due to liver disease and thrombocytopenia - Time Spent With Patient 25 - 35 minutes - Subjective Interval history: Examined this morning. Patient awake and alert. More responsive today. Denies chest pain or shortness of breath. Denies abdominal pain or vomiting. Tolerating oral diet. Sodium is 124 today. Patient does seem to have tremors in both hands and seems anxious. Patient does have cirrhosis of liver. Alcohol level was elevated on admission. Drug screen is positive for amphetamines and opiates. No other acute events. Hemodynamically stable. No family members at bedside. No fever. No other acute events or complaints. CODE STATUS discussed with patient again and he is full code. - Constitutional Vitals: Temp Pulse Resp BP Pulse Ox 98.3 F 96 16 99/61 98 10/19/16 11:11 10/19/16 11:11 10/19/16 11:11 10/19/16 11:11 10/19/16 11:11 General appearance: Present: A&O X 3, no acute distress, answers questions appropriately Exam: Generalized weakness, chronically ill-appearing, tremors in hands, anxious - Head Head exam: Present: atraumatic - Eye Eye exam: Present: EOMI - ENT ENT exam: Present: mucous membranes dry - Neck Neck exam general surgery: Present: supple - Respiratory Respiratory exam: Present: decreased breath sounds (Slightly in the bases). Absent: rales, rhonchi, wheezes, tachypnea - Cardiovascular Cardiovascular exam: Present: RRR, +S1, +S2, systolic murmur - GI/Abdominal GI/Abdominal exam: Present: distended (Ascites present), soft. Absent: firm, guarding, tenderness - Extremities Exam Extremities exam: Present: radial pulses palpable and symetrical. Absent: calf tenderness, cyanotic, pedal edema - Neurological Exam Neurological exam: Present: oriented X3, no focal deficits. Absent: facial droop Internal Medicine: Result - Labs CBC & Chem 7: 10/19/16 05:05 10/19/16 05:05 Labs: Short CBC 10/19/16 Range/Units 05:05 WBC 5.8 (4.3-11.1) K/mcL Hgb 9.7 L (12.9-16.9) g/dL Hct 28.3 L (37.5-50.1) % Plt Count 67 L (140-400) K/mcL Neutrophils # 3.3 (1.6-8.9) K/mcL BMP 10/19/16 05:05 Sodium 124 L Potassium 5.0 H Chloride 96 L Carbon Dioxide 24 BUN 21 Creatinine 0.80 Glucose 101 H Calcium 8.7 Liver Function 10/19/16 Range/Units 05:05 Total Bilirubin 3.4 H (0.2-1.2) mg/dL AST 64 H (5-34) Units/L ALT 51 (0-55) Units/L Alkaline Phosphatase 169 H (38-126) Units/L Albumin 2.1 L (3.5-5.0) g/dL - ABG Interpretation ABG results: PT/INR, D-dimer PT 14.6 Seconds (9.4-12.1) H 10/16/16 13:32 Consult Discharge Plan - Plan Referrals: Marco A Brown MD [Primary Care Provider] - (patient will follow up with [facility] )
[2016-10-19] MEDS: Melatonin 3 MG TABLET PO SCH (19:32)
--- NOTE | 2016-10-19 22:22 | Nephrology Progress Note ---
Date of Encounter: 10/19/16 Time of Encounter: 17:00 - Assessment and Plan (1) Hyponatremia Current Visit: Yes Status: Acute Follow sodium. Slight decrease. May need aquaretic. (2) Cirrhosis Current Visit: No Status: Acute Per primary team. Qualifiers: Hepatic cirrhosis type: alcoholic cirrhosis Ascites presence: with ascites Qualified Code(s): K70.31 - Alcoholic cirrhosis of liver with ascites (3) Hepatic encephalopathy Current Visit: No Status: Resolved Likely cause of mental status. (4) Hyperkalemia Current Visit: Yes Status: Acute Restrict potassium. Monitor. Subjective Principal diagnosis: Hyponatremia Interval history: Patient was eating dinner. Mental status was not clear. Objective - Vital Signs Vital signs: Vital Signs Temp Pulse Resp BP Pulse Ox 10/19/16 19:37 98.4 F 98 93/56 99 10/19/16 16:48 97.5 F L 95 18 99/61 99 10/19/16 11:11 98.3 F 96 16 99/61 98 10/19/16 07:12 97.7 F 100 16 97/60 96 10/19/16 03:52 97.9 F 108 16 94/57 97 10/18/16 23:30 98.2 F 98 16 102/57 98 Intake and Output 10/19/16 10/19/16 10/19/16 07:59 15:59 23:59 Intake Total 1000 / 1000 480 / 480 1120 / 1120 Output Total 850 / 850 850 / 850 Balance 1000 / 1000 -370 / -370 270 / 270 Intake: IV Fluids 1000 / 1000 1000 / 1000 0.9 % Sodium Chloride 1, 1000 / 1000 1000 / 1000 000 ML @ 80 mls/hr IVC . [id number] [facility] Rx#: [id number] Oral 480 / 480 120 / 120 Output: Catheter 850 / 850 850 / 850 Other: Meal Lunch Dinner Percent of Meal Consumed 100% 100% Stool Size Moderate Stool Consistency soft Stool Color Brown Green # Bowel Movements 1 Weight 80.5 kg Patient Weight 10/19/16 23:59 Weight 80.5 kg - General Appearance General appearance: Present: well-developed, chronically ill, frail EENT: Present: ATNC Additional Comments: Respirations are unlabored. Cardiology: Present: regular rate - Lab 10/19/16 05:05 10/19/16 05:05 Most recent lab results Calcium 8.7 mg/dL (8.6-10.8) 10/19/16 05:05 Phosphorus 3.4 mg/dL (2.3-4.7) 10/17/16 02:04 Magnesium 1.6 mg/dL (1.6-2.6) 10/17/16 02:04 Urine Sodium 106.0 mEq/L 10/17/16 08:13 Consult Discharge Plan - Plan Referrals: Marco A Brown MD [Primary Care Provider] - (patient will follow up with [facility] )
[2016-10-20 06:43] LABS: Basophils % 0.5 %; Red Cell Distribution Width 15.1 % (11.5-14.5)
[2016-10-20 06:45] LABS: Eosinophils # 0.3 K/mcL (0.0-0.6); Eosinophils % 5.1 %; Hematocrit 27.8 % (37.5-50.1); Immature Platelets 0.8 % (1.1-6.1); Lymphocytes # 0.8 K/mcL (0.6-4.6); Lymphocytes % 12.8 %; Mean Corpuscular Volume 97.2 fL (83.0-100.0); Mean Platelet Volume 8.7 fL (9.4-12.4); Monocytes # 0.9 K/mcL (0.0-1.3); Monocytes % 15.2 %; Red Blood Count 2.86 M/mcL (4.19-5.50); Segmented Neutrophils % 65.4 %
[2016-10-20 06:48] LABS: Neutrophils # 3.9 K/mcL (1.6-8.9); Platelet Count 70 K/mcL (140-400)
[2016-10-20 06:50] LABS: Alanine Aminotransferase 53 Units/L (0-55); Albumin 2.1 g/dL (3.5-5.0); Albumin/Globulin Ratio 0.6 (1.1-2.2); Alkaline Phosphatase 177 Units/L (38-126); Aspartate Amino Transferase 67 Units/L (5-34); BUN/Creatinine Ratio 28 (6-26); Bilirubin,Total 2.7 mg/dL (0.2-1.2); Blood Urea Nitrogen 19 mg/dL (8-26); Calcium 8.7 mg/dL (8.6-10.8); Carbon Dioxide 22 mEq/L (19-29); Chloride 100 mEq/L (98-109); Globulin 3.5 g/dL (2.4-3.5); Glucose 105 mg/dL (70-99); Osmolality,Calculated 267 (280-300); Potassium 4.9 mEq/L (3.5-4.5); Total Protein 5.6 g/dL (6.0-8.3); eGFR For African Americans > 60 (> 60); eGFR For Non-African Americans > 60 (> 60)
[2016-10-20 06:51] LABS: Sodium 127 mEq/L (136-145)
[2016-10-20] MEDS: Zinc Sulfate 220 MG CAPSULE PO SCH (08:27)
[2016-10-20] MEDS: Folic Acid 1 MG TABLET PO SCH (08:28)
[2016-10-20] MEDS: Thiamine (B-1) 100 MG TABLET PO SCH (08:28)
[2016-10-20] MEDS: Lactulose Oral Soln 20 GM/30 ML UDC PO SCH ×3 (08:30→20:12)
[2016-10-20] MEDS: lamoTRIgine 100 MG TABLET PO SCH (08:30)
[2016-10-20] MEDS: Multivit/Ca/Min/Fe/FA 1 TAB TABLET PO SCH (08:30)
[2016-10-20] MEDS: Bumetanide 1 MG TABLET PO SCH ×2 (08:35→16:03)
[2016-10-20] MEDS: 0.9 % Sodium Chloride 1,000 ML IVC SCH (10:09)
--- NOTE | 2016-10-20 10:28 | Nephrology Progress Note ---
Date of Encounter: 10/20/16 Time of Encounter: 10:26 - Assessment and Plan (1) Hyponatremia Current Visit: Yes Status: Acute Na+ up to 127 Waiting for placement to Signature Will change from renal diet to regular diet (2) Cirrhosis Current Visit: No Status: Acute per primary team Qualifiers: Hepatic cirrhosis type: alcoholic cirrhosis Ascites presence: with ascites Qualified Code(s): K70.31 - Alcoholic cirrhosis of liver with ascites (3) Esophageal varices in cirrhosis Current Visit: No Status: Acute per primary team Subjective Principal diagnosis: Hyponatremia Interval history: Patient seen and examined. Won't answer my questions but does ask if someone is going to feed him. Objective - Vital Signs Vital signs: Vital Signs Temp Pulse Resp BP Pulse Ox 10/20/16 07:23 97.9 F 104 16 95/61 98 10/20/16 03:24 98.4 F 105 20 95/56 97 10/19/16 23:38 98.6 F 109 19 109/67 98 10/19/16 19:37 98.4 F 98 93/56 99 10/19/16 16:48 97.5 F L 95 18 99/61 99 10/19/16 11:11 98.3 F 96 16 99/61 98 Intake and Output 10/19/16 10/20/16 10/20/16 23:59 07:59 15:59 Intake Total 1120 / 1120 1300 / 1300 Output Total 1400 / 1400 1150 / 1150 Balance -280 / -280 -1150 / -1150 1300 / 1300 Intake: IV Fluids 1000 / 1000 1000 / 1000 0.9 % Sodium Chloride 1, 1000 / 1000 1000 / 1000 000 ML @ 80 mls/hr IVC . [id number] [facility] Rx#: [id number] Oral 120 / 120 300 / 300 Output: Catheter 1400 / 1400 1150 / 1150 Other: Meal Dinner Breakfast Percent of Meal Consumed 100% 40% Stool Size Moderate Stool Consistency soft Stool Color Brown Green # Bowel Movements 1 Weight 81.7 kg Patient Weight 10/20/16 23:59 Weight 81.7 kg - General Appearance General appearance: Present: chronically ill EENT: Present: ATNC Neck: Present: supple Respiratory: Present: clear Cardiology: Present: no edema, normal S1, normal S2 Gastrointestinal: Present: no tenderness, no guarding Integumentary: Present: warm and dry - Lab 10/20/16 05:54 10/20/16 05:54 Most recent lab results Calcium 8.7 mg/dL (8.6-10.8) 10/20/16 05:54 Phosphorus 3.4 mg/dL (2.3-4.7) 10/17/16 02:04 Magnesium 1.6 mg/dL (1.6-2.6) 10/17/16 02:04 Urine Sodium 106.0 mEq/L 10/17/16 08:13 - VTE Documentation of Mechanical Device: Intermittent pneumatic compression device Consult Discharge Plan - Plan Referrals: Marco A Brown MD [Primary Care Provider] - (patient will follow up with [facility] )
--- NOTE | 2016-10-20 10:55 | Internal Med Progress Note ---
Date of Encounter: 10/20/16 Time of Encounter: 09:00 - Assessment and plan (1) Acute encephalopathy Current Visit: Yes Status: Acute Assessment and plan: Acute encephalopathy, metabolic - secondary to end-stage liver cirrhosis, hyponatremia and hyperammonemia - symptoms improving Continue Lactulose, Increase Rifaximin Continue BUme and Spironolactone for ascites D/C IVF CT abdomen revealed ascites-consult IR for therapeutic and or diagnostic drainage Fall precautions Continue tele Patient is improving (2) Hyperammonemia Current Visit: Yes Status: Acute Assessment and plan: Likely contributing to acute encephalopathy - continue lactulose, ensure 3BM daily Improved (3) Hyperkalemia Current Visit: Yes Status: Resolved Assessment and plan: Resolved, continue to monitor (4) Hyponatremia Current Visit: Yes Status: Acute Assessment and plan: Acute on chronic severe hyponatremia - secondary to volume depletion and alcohol abuse - contributing to acute encephalopathy - slowly improving Sodium today 127, presenting sodium was 118 D/C normal saline Nephrology is following (5) CHF (congestive heart failure) Current Visit: Yes Status: Chronic Assessment and plan: Chronic stable Qualifiers: Congestive heart failure type: diastolic Congestive heart failure chronicity: chronic Qualified Code(s): I50.32 - Chronic diastolic (congestive ) heart failure (6) Alcohol intoxication Current Visit: Yes Status: Resolved Assessment and plan: Patient presented with ethy alcohol level of 128, known to leave the SNF to go and drink Also has utox positive for amphetamines Continue CIWA protocol He is on librium anf has not required any ativan Continue M/T/F Continue to monitor May start to taper librium from a.m Qualifiers: Complication of substance-induced condition: uncomplicated Qualified Code(s ): F10.920 - Alcohol use, unspecified with intoxication, uncomplicated (7) Cirrhosis Current Visit: Yes Status: Chronic Assessment and plan: With portal HTN, hx of esophageal varices s/p banding Hb is stable LFT at baseline Chem is at baseline Will consult IR for paracentensis He is on transplant list at [facility]-patient continues to drink Qualifiers: Hepatic cirrhosis type: alcoholic cirrhosis Ascites presence: with ascites Qualified Code(s): K70.31 - Alcoholic cirrhosis of liver with ascites (8) Hepatic encephalopathy Current Visit: Yes Status: Acute Assessment and plan: Improving (9) Esophageal varices in alcoholic cirrhosis Current Visit: Yes Status: Chronic Assessment and plan: History of esophageal varices status post banding (10) Pancytopenia Current Visit: Yes Status: Chronic Assessment and plan: Chronic, stable (11) Pleural effusion associated with hepatic disorder Current Visit: Yes Status: Chronic Assessment and plan: Stable loculated R pleural effusion per CT patient is not in distress No indication for drainage at this time - Subjective Interval history: Seen and evaluated at bedside 51 M with Lover cirrhosis, Portal HTN, Alcohol abuse, Chronic hyponatremia, Pancytopenia He is being managed for acute encephaloathy secondary to acute on chronic hyponatremia, hepatic encephalopathy, alcohol intoxication, hyperkalemia His baseline mental status is unknown He is however oriented X3 this morning He is lethargic but rousable and able to participate in a meaningful conversation Chart review reveals he is not having adequate BM - Constitutional Vitals: Temp Pulse Resp BP Pulse Ox 97.9 F 104 16 95/61 98 10/20/16 07:23 10/20/16 07:23 10/20/16 07:23 10/20/16 07:23 10/20/16 07:23 General appearance: Present: A&O X 3, no acute distress, answers questions appropriately - Head Head exam: Present: atraumatic, normocephalic - Eye Eye exam: Present: PERRL, conjuntiva pink, sclera anicteric. Absent: scleral icterus Pupils: Present: PERRL - Neck Neck exam general surgery: Present: supple, trachea midline. Absent: lymphadenopathy - Respiratory Additional comments: Good air entry bilaterally, slighlty diminished at the bases, possibly from atelectasis and body habitus - Cardiovascular Cardiovascular exam: Present: RRR, +S1, +S2. Absent: diastolic murmur, gallop, rubs, systolic murmur - GI/Abdominal GI/Abdominal exam: Present: distended (ascites), soft, no peritoneal signs. Absent: tenderness - Extremities Exam Extremities exam: Present: warm, radial pulses palpable and symetrical. Absent : calf tenderness, cyanotic, pedal edema - Neurological Exam Neurological exam: Present: alert, oriented X3. Absent: speech deficit - Skin Skin exam: Present: dry, intact Internal Medicine: Result - Labs CBC & Chem 7: 10/20/16 05:54 10/20/16 05:54 Labs: Short CBC 10/20/16 Range/Units 05:54 WBC 5.9 (4.3-11.1) K/mcL Hgb 10.0 L (12.9-16.9) g/dL Hct 27.8 L (37.5-50.1) % Plt Count 70 L (140-400) K/mcL Neutrophils # 3.9 (1.6-8.9) K/mcL BMP 10/20/16 05:54 Sodium 127 L Potassium 4.9 H Chloride 100 Carbon Dioxide 22 BUN 19 Creatinine 0.69 L Glucose 105 H Calcium 8.7 Liver Function 10/20/16 Range/Units 05:54 Total Bilirubin 2.7 H (0.2-1.2) mg/dL AST 67 H (5-34) Units/L ALT 53 (0-55) Units/L Alkaline Phosphatase 177 H (38-126) Units/L Albumin 2.1 L (3.5-5.0) g/dL - ABG Interpretation ABG results: PT/INR, D-dimer PT 14.6 Seconds (9.4-12.1) H 10/16/16 13:32 - VTE Documentation of Mechanical Device: Intermittent pneumatic compression device Consult Discharge Plan - Plan Referrals: Marco A Brown MD [Primary Care Provider] - (patient will follow up with [facility] )
[2016-10-20] MEDS: *HR* Heparin 5,000 UNIT/ML VIAL SQ SCH (16:14)
[2016-10-20] MEDS: Melatonin 3 MG TABLET PO SCH (20:11)
[2016-10-21 04:39] LABS: Hematocrit 30.4 % (37.5-50.1); Mean Corpuscular Volume 98.1 fL (83.0-100.0); Red Cell Distribution Width 15.3 % (11.5-14.5)
[2016-10-21 04:41] LABS: Eosinophils # 0.3 K/mcL (0.0-0.6); Hemoglobin 10.7 g/dL (12.9-16.9); Immature Platelets 0.8 % (1.1-6.1); Mean Corpuscular HGB Conc 35.2 g/dL (31.6-35.5); Mean Corpuscular Hemoglobin 34.5 pg (28.0-33.3); Mean Platelet Volume 8.5 fL (9.4-12.4)
[2016-10-21 04:50] LABS: BUN/Creatinine Ratio 27 (6-26); Blood Urea Nitrogen 20 mg/dL (8-26); Calcium 9.6 mg/dL (8.6-10.8); Carbon Dioxide 24 mEq/L (19-29); Chloride 99 mEq/L (98-109); Glucose 119 mg/dL (70-99); Osmolality,Calculated 274 (280-300); Potassium 4.1 mEq/L (3.5-4.5); Sodium 130 mEq/L (136-145); eGFR For African Americans > 60 (> 60); eGFR For Non-African Americans > 60 (> 60)
[2016-10-21] MEDS: *HR* HYDROcodone/Acet 5/325 mg TABLET PO PRN (04:51)
[2016-10-21 05:13] LABS: Platelet Count 75 K/mcL (140-400)
[2016-10-21] MEDS: *HR* Heparin 5,000 UNIT/ML VIAL SQ SCH ×2 (06:24→18:32)
[2016-10-21 06:48] LABS: Lymphocytes # 0.7 K/mcL (0.6-4.6); Monocytes # 1.1 K/mcL (0.0-1.3)
[2016-10-21 06:49] LABS: Hypersegmented Neutrophils Present (Not Present); Platelet Estimate Decreased (Normal)
--- NOTE | 2016-10-21 08:56 | Internal Med Progress Note ---
<José ManuelMika - Last Filed: 10/21/16 10:40> Date of Encounter: 10/21/16 Time of Encounter: 08:54 - Assessment and plan (1) Acute encephalopathy Current Visit: Yes Status: Acute Assessment and plan: Acute encephalopathy, metabolic - secondary to end-stage liver cirrhosis and electrolyte disturbances He has not had sufficient bowel movements and Rifaximin and Lactulose have been increased CT abdomen revealed ascites-consult IR for therapeutic and or diagnostic drainage but there was no fluid present this morning Continue supportive measures with Fall precautions and telemetry (2) Alcohol intoxication Current Visit: Yes Status: Resolved Assessment and plan: Patient presented with ethy alcohol level of 128, known to leave the SNF to go and drink Also has utox positive for amphetamines Continue CIWA protocol and librium Qualifiers: Complication of substance-induced condition: uncomplicated Qualified Code(s ): F10.920 - Alcohol use, unspecified with intoxication, uncomplicated (3) Cirrhosis Current Visit: No Status: Chronic Assessment and plan: Has h/o portal HTN and varicies s/p banding Hb, platelets are stable at baseline Currently on [facility] transplant list but he continues to drink Qualifiers: Qualified Code(s): K74.60 - Unspecified cirrhosis of liver (4) Ascites Current Visit: No Status: Chronic Assessment and plan: IR consulted as above Qualifiers: Ascites type: other type Qualified Code(s): R18.8 - Other ascites (5) Hepatic encephalopathy Current Visit: No Status: Resolved Assessment and plan: Management as above for acute encephalopathy (6) Hyperammonemia Current Visit: Yes Status: Resolved Assessment and plan: Likely contributing to acute encephalopathy Not up to goal 3 BM at day, just recently started increased Lactulose dose Will obtain ammonia levels in AM (7) DVT prophylaxis Current Visit: Yes Status: Acute Assessment and plan: Continue SCDs, avoid anticoagulation due to liver disease and thrombocytopenia - Subjective Interval history: Pt seen and examined. He is minimally responsive this morning and only mumbles. No family at bedside but nurses state a sister was here yesterday and states he is less arousable than normal. They did not report him having any bowel movements yesterday or overnight. - Constitutional Vitals: Temp Pulse Resp BP Pulse Ox 97.3 F L 101 17 101/62 99 10/21/16 06:50 10/21/16 06:50 10/21/16 06:50 10/21/16 06:50 10/21/16 06:50 General appearance: Present: A&O X 0, disheveled. Absent: answers questions appropriately - Head Head exam: Present: atraumatic, normocephalic - Eye Eye exam: Present: PERRL, conjuntiva pink, sclera anicteric - Neck Neck exam general surgery: Present: supple, trachea midline. Absent: lymphadenopathy - Respiratory Respiratory exam: Present: CTAB. Absent: accessory muscle use, rales, rhonchi, wheezes - Cardiovascular Cardiovascular exam: Present: RRR, +S1, +S2. Absent: diastolic murmur, gallop, rubs, systolic murmur - GI/Abdominal GI/Abdominal exam: Present: normal bowel sounds, soft, no peritoneal signs. Absent: distended, tenderness - Extremities Exam Extremities exam: Present: warm, radial pulses palpable and symmetrical. Absent : calf tenderness, cyanotic, pedal edema - Neurological Exam Neurological exam: Present: altered, no focal deficits, speech deficit (mumbles) . Absent: oriented X3 - Skin Skin exam: Present: dry, intact Internal Medicine: Result - Labs CBC & Chem 7: 10/21/16 04:07 10/21/16 04:07 Labs: Short CBC 10/21/16 Range/Units 04:07 WBC 5.1 (4.3-11.1) K/mcL Hgb 10.7 L (12.9-16.9) g/dL Hct 30.4 L (37.5-50.1) % Plt Count 75 L (140-400) K/mcL Neutrophils # 3.0 (1.6-8.9) K/mcL BMP 10/21/16 04:07 Sodium 130 L Potassium 4.1 Chloride 99 Carbon Dioxide 24 BUN 20 Creatinine 0.74 Glucose 119 H Calcium 9.6 - ABG Interpretation ABG results: PT/INR, D-dimer PT 14.6 Seconds (9.4-12.1) H 10/16/16 13:32 - VTE Documentation of Mechanical Device: Intermittent pneumatic compression device Consult Discharge Plan - Plan Referrals: Marco A Brown MD [Primary Care Provider] - (patient will follow up with [facility] ) <Carlos Shahid - Last Filed: 10/21/16 15:06> Date of Encounter: 10/21/16 - Assessment and plan (1) Acute encephalopathy Current Visit: Yes Status: Acute (2) Hyperammonemia Current Visit: Yes Status: Resolved (3) Hyperkalemia Current Visit: Yes Status: Resolved (4) Hyponatremia Current Visit: Yes Status: Acute (5) CHF (congestive heart failure) Current Visit: Yes Status: Chronic Qualifiers: Congestive heart failure type: diastolic Congestive heart failure chronicity: chronic Qualified Code(s): I50.32 - Chronic diastolic (congestive ) heart failure (6) Alcohol intoxication Current Visit: Yes Status: Resolved Qualifiers: Complication of substance-induced condition: uncomplicated Qualified Code(s ): F10.920 - Alcohol use, unspecified with intoxication, uncomplicated (7) Cirrhosis Current Visit: Yes Status: Chronic Qualifiers: Hepatic cirrhosis type: alcoholic cirrhosis Ascites presence: with ascites Qualified Code(s): K70.31 - Alcoholic cirrhosis of liver with ascites (8) Hepatic encephalopathy Current Visit: Yes Status: Acute (9) Esophageal varices in alcoholic cirrhosis Current Visit: Yes Status: Chronic (10) Pancytopenia Current Visit: Yes Status: Chronic (11) Pleural effusion associated with hepatic disorder Current Visit: Yes Status: Chronic - Constitutional Vitals: Temp Pulse Resp BP Pulse Ox 96.8 F L 90 16 101/62 100 10/21/16 10:38 10/21/16 10:38 10/21/16 10:38 10/21/16 06:50 10/21/16 10:38 Internal Medicine: Result - Labs CBC & Chem 7: 10/21/16 04:07 10/21/16 04:07 Labs: Short CBC 10/21/16 Range/Units 04:07 WBC 5.1 (4.3-11.1) K/mcL Hgb 10.7 L (12.9-16.9) g/dL Hct 30.4 L (37.5-50.1) % Plt Count 75 L (140-400) K/mcL Neutrophils # 3.0 (1.6-8.9) K/mcL BMP 10/21/16 04:07 Sodium 130 L Potassium 4.1 Chloride 99 Carbon Dioxide 24 BUN 20 Creatinine 0.74 Glucose 119 H Calcium 9.6 - ABG Interpretation ABG results: PT/INR, D-dimer PT 14.6 Seconds (9.4-12.1) H 10/16/16 13:32 - Impressions Impressions Abdomen/Pelvis/Transvag US 10/21/16 00:00 IMPRESSION: Small amount of ascites, not enough to perform paracentesis. D/ / 10/21/2016 11:18:34 Joelle Braden MD / nicolás Interpreting Provider: Joelle Braden MD - Attending Attestation I examined this patient and my medical decision-making was reviewed with the Resident Physician on 10/21/16. I agree with the documented findings, disposition and treatment plan as described except to the extent set forth below. 51 YO M being managed for hepatic encephalopathy, alcoholic liver cirrhsis with portal HTN and hx of alcohol abuse,acute on chronic hyponatremia This a.m, patient is more somnolent and rousable to noxious stimuli only Per IR, he has no drainable ascites He has had only one BM since 10/19 Physical exam: VSS, not in distress, opens eyes to name call, sternal rub needed but follows commands, protecting airway, no gurggling, chest is clear. Labs and Imaging reviewed: Electrolytes are back to baseline. .I/O Negative - 3292 A/P Worsening altered mental status-Start lactulose enema, aim for BM at least [address] patient on continuous pulse Oximetry and telemetry Start to taper librium rapidly High risk for aspiration of oral contents and airway compromise Fall precautions NPO except medications till patient is awake Patient is full code
[2016-10-21] MEDS: Bumetanide 1 MG TABLET PO SCH ×2 (10:12→17:23)
[2016-10-21] MEDS: Lactulose Oral Soln 20 GM/30 ML UDC PO SCH (10:12)
[2016-10-21] MEDS: Folic Acid 1 MG TABLET PO SCH (10:12)
[2016-10-21] MEDS: lamoTRIgine 100 MG TABLET PO SCH (10:12)
[2016-10-21] MEDS: Multivit/Ca/Min/Fe/FA 1 TAB TABLET PO SCH (10:13)
[2016-10-21] MEDS: Zinc Sulfate 220 MG CAPSULE PO SCH (10:13)
[2016-10-21] MEDS: Thiamine (B-1) 100 MG TABLET PO SCH (10:13)
--- NOTE | 2016-10-21 11:11 | Nephrology Progress Note ---
Date of Encounter: 10/21/16 Time of Encounter: 11:09 - Assessment and Plan (1) Hyponatremia Current Visit: Yes Status: Acute Follow sodium. Improving. Agree with stopping fluids. Regular diet. (2) Cirrhosis Current Visit: Yes Status: Chronic Per primary team. Qualifiers: Hepatic cirrhosis type: alcoholic cirrhosis Ascites presence: with ascites Qualified Code(s): K70.31 - Alcoholic cirrhosis of liver with ascites (3) Hyperkalemia Current Visit: Yes Status: Resolved Resolved. . Subjective Principal diagnosis: Hyponatremia Interval history: Patient was asleep. Hospitalist in the room. Patient opened eyes then immediately closed them going back to sleep. He would not answer questions, but exhibited spontaneous movement and was protecting his airway. ROS was unobtainable. Objective - Vital Signs Vital signs: Vital Signs Temp Pulse Resp BP Pulse Ox 10/21/16 10:38 96.8 F L 90 16 100 10/21/16 06:50 97.3 F L 101 17 101/62 99 10/21/16 04:08 97.4 F L 102 19 99/63 98 10/20/16 23:22 98.4 F 96 19 96/60 99 10/20/16 19:21 97.8 F 103 100/63 98 10/20/16 16:43 98.8 F 100 17 93/57 99 10/20/16 11:36 98.4 F 103 14 99/65 97 Intake and Output 10/20/16 10/21/16 10/21/16 23:59 07:59 15:59 Output Total 2200 / 2200 500 / 500 Balance -2200 / -2200 -500 / -500 Output: Urine 700 / 700 Catheter 1500 / 1500 500 / 500 Other: Weight 81.9 kg Patient Weight 10/21/16 23:59 Weight 81.9 kg - General Appearance General appearance: Present: well-developed, well-nourished EENT: Present: ATNC Additional Comments: respirations are unlabored. Cardiology: Present: no edema Additional Comments: tachycardic Additional Comments: asleep and arousable, but refuses to stay awake. Difficult to tell if this is lack of effort. Psychiatric: Present: mood/affect appropriate - Lab 10/21/16 04:07 10/21/16 04:07 Most recent lab results Calcium 9.6 mg/dL (8.6-10.8) 10/21/16 04:07 Phosphorus 3.4 mg/dL (2.3-4.7) 10/17/16 02:04 Magnesium 1.6 mg/dL (1.6-2.6) 10/17/16 02:04 Urine Sodium 106.0 mEq/L 10/17/16 08:13 - VTE Documentation of Mechanical Device: Intermittent pneumatic compression device Consult Discharge Plan - Plan Referrals: Marco A Brown MD [Primary Care Provider] - (patient will follow up with [facility] )
[2016-10-21] MEDS: Lactulose 200 GM, Sodium Chloride IRRigation 700 ML RC SCH ×3 (12:43→23:08)
[2016-10-21] MEDS ORDERED: Lactulose 200 GM/300 ML (for enema) RC SCH (13:00)
[2016-10-21] MEDS ORDERED: Dextrose Gel 15 GM PO PRN ×2 (15:54)
[2016-10-21] MEDS ORDERED: *HR* Dextrose 50 % in Water (Syg) 50 ML SYRINGE IVP PRN (15:54)
[2016-10-21] MEDS ORDERED: D5% in Water 1,000 ML IVC PRN (15:54)
[2016-10-21] MEDS: Insulin LISPRO 300 UNITS/3 ML VIAL SQ SCH (17:46)
[2016-10-21] MEDS: Melatonin 3 MG TABLET PO SCH (23:07)
[2016-10-22] MEDS: Insulin LISPRO 300 UNITS/3 ML VIAL SQ SCH ×4 (01:20→18:07)
[2016-10-22 03:29] LABS: Segmented Neutrophils % 62.1 %
[2016-10-22 03:31] LABS: Basophils % 0.8 %; Eosinophils # 0.2 K/mcL (0.0-0.6); Eosinophils % 4.9 %; Hemoglobin 11.8 g/dL (12.9-16.9); Immature Platelets 0.5 % (1.1-6.1); Lymphocytes # 0.7 K/mcL (0.6-4.6); Lymphocytes % 14.5 %; Mean Corpuscular HGB Conc 34.7 g/dL (31.6-35.5); Mean Platelet Volume 8.7 fL (9.4-12.4); Monocytes # 0.8 K/mcL (0.0-1.3); Monocytes % 16.7 %; Red Blood Count 3.47 M/mcL (4.19-5.50); Red Cell Distribution Width 15.4 % (11.5-14.5)
[2016-10-22 03:40] LABS: Platelet Count 82 K/mcL (140-400)
[2016-10-22 03:45] LABS: Alanine Aminotransferase 70 Units/L (0-55); Albumin 2.4 g/dL (3.5-5.0); Albumin/Globulin Ratio 0.6 (1.1-2.2); Alkaline Phosphatase 196 Units/L (38-126); Aspartate Amino Transferase 78 Units/L (5-34); BUN/Creatinine Ratio 31 (6-26); Blood Urea Nitrogen 22 mg/dL (8-26); Calcium 9.8 mg/dL (8.6-10.8); Carbon Dioxide 24 mEq/L (19-29); Chloride 97 mEq/L (98-109); Globulin 4.1 g/dL (2.4-3.5); Glucose 97 mg/dL (70-99); Osmolality,Calculated 271 (280-300); Potassium 4.6 mEq/L (3.5-4.5); Sodium 129 mEq/L (136-145); Total Protein 6.5 g/dL (6.0-8.3); eGFR For African Americans > 60 (> 60); eGFR For Non-African Americans > 60 (> 60)
[2016-10-22 03:49] LABS: Bilirubin,Total 5.4 mg/dL (0.2-1.2)
[2016-10-22] MEDS: *HR* Heparin 5,000 UNIT/ML VIAL SQ SCH ×2 (06:22→18:29)
[2016-10-22] MEDS ORDERED: Lactulose 200 GM, Sodium Chloride IRRigation 700 ML RC ONE (07:44)
[2016-10-22] MEDS: Bumetanide 1 MG TABLET PO SCH ×2 (08:19→18:20)
[2016-10-22] MEDS: Folic Acid 1 MG TABLET PO SCH (08:22)
[2016-10-22] MEDS: lamoTRIgine 100 MG TABLET PO SCH (08:23)
[2016-10-22] MEDS: Zinc Sulfate 220 MG CAPSULE PO SCH (08:23)
[2016-10-22] MEDS: Multivit/Ca/Min/Fe/FA 1 TAB TABLET PO SCH (08:23)
[2016-10-22] MEDS: Thiamine (B-1) 100 MG TABLET PO SCH (08:23)
--- NOTE | 2016-10-22 08:30 | Internal Med Progress Note ---
<José ManuelMika - Last Filed: 10/22/16 10:35> Date of Encounter: 10/22/16 Time of Encounter: 08:29 - Assessment and plan (1) Acute encephalopathy Current Visit: Yes Status: Acute Assessment and plan: Acute encephalopathy, metabolic - secondary to end-stage liver cirrhosis and electrolyte disturbances He did have a large bowel movement after being given rectal Lactulose since he cannot tolerate orals at this time; goal of 2-3 BM a day Continue with higher doses of Rifaximin at [address] abdomen revealed ascites-consult IR for therapeutic and or diagnostic drainage but there was no fluid present on 10/21 Continue supportive measures with Fall precautions and telemetry Order CXR for possible aspiration pneumonia (2) Alcohol intoxication Current Visit: Yes Status: Resolved Assessment and plan: Patient presented with ethy alcohol level of 128, known to leave the SNF to go and drink Also has utox positive for amphetamines Continue CIWA protocol and librium Qualifiers: Complication of substance-induced condition: uncomplicated Qualified Code(s ): F10.920 - Alcohol use, unspecified with intoxication, uncomplicated (3) Cirrhosis Current Visit: No Status: Chronic Assessment and plan: Has h/o portal HTN and varicies s/p banding Hb, platelets are stable at baseline Currently on [facility] transplant list but he continues to drink Qualifiers: Qualified Code(s): K74.60 - Unspecified cirrhosis of liver (4) Hepatic encephalopathy Current Visit: No Status: Chronic Assessment and plan: Management as above for acute encephalopathy Ammonia levels were elevated at 162 (5) Hyperammonemia Current Visit: Yes Status: Acute Assessment and plan: Likely contributing to acute encephalopathy Not up to goal 3 BM at day, just recently started increased Lactulose dose (6) DVT prophylaxis Current Visit: Yes Status: Acute Assessment and plan: Continue SCDs, avoid anticoagulation due to liver disease and thrombocytopenia - Subjective Interval history: Pt seen and examined. He remains minimally responsive and only moans to sternal rub. Does not make any purposeful movements and there is no one at bedside. Tried contacting his sister, Marquita, but no answer. - Constitutional Vitals: Temp Pulse Resp BP Pulse Ox 96.4 F L 93 16 108/69 99 10/22/16 07:05 10/22/16 07:05 10/22/16 07:05 10/22/16 07:05 10/22/16 07:05 General appearance: Present: A&O X 0, disheveled. Absent: answers questions appropriately - Head Head exam: Present: atraumatic, normocephalic - Eye Eye exam: Present: PERRL, conjuntiva pink, sclera anicteric - Neck Neck exam general surgery: Present: supple, trachea midline. Absent: lymphadenopathy - Respiratory Respiratory exam: Present: CTAB. Absent: accessory muscle use, rales, rhonchi, wheezes - Cardiovascular Cardiovascular exam: Present: RRR, +S1, +S2. Absent: diastolic murmur, gallop, rubs, systolic murmur - GI/Abdominal GI/Abdominal exam: Present: normal bowel sounds, soft, no peritoneal signs. Absent: distended, tenderness - Extremities Exam Extremities exam: Present: warm, radial pulses palpable and symmetrical. Absent : calf tenderness, cyanotic, pedal edema - Neurological Exam Neurological exam: Present: altered. Absent: oriented X3, no focal deficits, strengths equal and symetr throughout, pronater drift, facial droop, speech deficit - Skin Skin exam: Present: dry, intact Internal Medicine: Result - Labs CBC & Chem 7: 10/22/16 03:11 10/22/16 03:11 Labs: Short CBC 10/22/16 Range/Units 03:11 WBC 4.9 (4.3-11.1) K/mcL Hgb 11.8 L (12.9-16.9) g/dL Hct 34.0 L (37.5-50.1) % Plt Count 82 L (140-400) K/mcL Neutrophils # 3.0 (1.6-8.9) K/mcL BMP 10/22/16 03:11 Sodium 129 L Potassium 4.6 H Chloride 97 L Carbon Dioxide 24 BUN 22 Creatinine 0.72 Glucose 97 Calcium 9.8 Liver Function 10/22/16 Range/Units 03:11 Total Bilirubin 5.4 H D (0.2-1.2) mg/dL AST 78 H (5-34) Units/L ALT 70 H (0-55) Units/L Alkaline Phosphatase 196 H (38-126) Units/L Albumin 2.4 L (3.5-5.0) g/dL - ABG Interpretation ABG results: PT/INR, D-dimer PT 14.6 Seconds (9.4-12.1) H 10/16/16 13:32 - Impressions Impressions Abdomen/Pelvis/Transvag US 10/21/16 00:00 IMPRESSION: Small amount of ascites, not enough to perform paracentesis. D/ / 10/21/2016 11:18:34 Joelle Braden MD / nicolás Interpreting Provider: Joelle Braden MD - VTE Documentation of Mechanical Device: Intermittent pneumatic compression device Consult Discharge Plan - Plan Referrals: Marco A Brown MD [Primary Care Provider] - (patient will follow up with [facility] ) <Carlos Shahid T - Last Filed: 10/22/16 13:03> Date of Encounter: 10/22/16 - Assessment and plan (1) Acute encephalopathy Current Visit: Yes Status: Acute (2) Hyperammonemia Current Visit: Yes Status: Acute (3) Hyperkalemia Current Visit: Yes Status: Resolved (4) Hyponatremia Current Visit: Yes Status: Acute (5) CHF (congestive heart failure) Current Visit: Yes Status: Chronic Qualifiers: Congestive heart failure type: diastolic Congestive heart failure chronicity: chronic Qualified Code(s): I50.32 - Chronic diastolic (congestive ) heart failure (6) Alcohol intoxication Current Visit: Yes Status: Resolved Qualifiers: Complication of substance-induced condition: uncomplicated Qualified Code(s ): F10.920 - Alcohol use, unspecified with intoxication, uncomplicated (7) Cirrhosis Current Visit: Yes Status: Chronic Qualifiers: Hepatic cirrhosis type: alcoholic cirrhosis Ascites presence: with ascites Qualified Code(s): K70.31 - Alcoholic cirrhosis of liver with ascites (8) Hepatic encephalopathy Current Visit: Yes Status: Acute (9) Esophageal varices in alcoholic cirrhosis Current Visit: Yes Status: Chronic (10) Pancytopenia Current Visit: Yes Status: Chronic (11) Pleural effusion associated with hepatic disorder Current Visit: Yes Status: Chronic - Constitutional Vitals: Temp Pulse Resp BP Pulse Ox 97.0 F L 94 16 100/67 99 10/22/16 11:10 10/22/16 11:10 10/22/16 11:10 10/22/16 11:10 10/22/16 11:10 Internal Medicine: Result - Labs CBC & Chem 7: 10/22/16 03:11 10/22/16 03:11 Labs: Short CBC 10/22/16 Range/Units 03:11 WBC 4.9 (4.3-11.1) K/mcL Hgb 11.8 L (12.9-16.9) g/dL Hct 34.0 L (37.5-50.1) % Plt Count 82 L (140-400) K/mcL Neutrophils # 3.0 (1.6-8.9) K/mcL BMP 10/22/16 03:11 Sodium 129 L Potassium 4.6 H Chloride 97 L Carbon Dioxide 24 BUN 22 Creatinine 0.72 Glucose 97 Calcium 9.8 Liver Function 10/22/16 Range/Units 03:11 Total Bilirubin 5.4 H D (0.2-1.2) mg/dL AST 78 H (5-34) Units/L ALT 70 H (0-55) Units/L Alkaline Phosphatase 196 H (38-126) Units/L Albumin 2.4 L (3.5-5.0) g/dL - ABG Interpretation ABG results: PT/INR, D-dimer PT 14.6 Seconds (9.4-12.1) H 10/16/16 13:32 - Impressions Impressions Abdomen/Pelvis/Transvag US 10/21/16 00:00 IMPRESSION: Small amount of ascites, not enough to perform paracentesis. D/ / 10/21/2016 11:18:34 Joelle Braden MD / nicolás Interpreting Provider: Joelle Braden MD Chest X-Ray 10/22/16 08:23 IMPRESSION: No significant change in right lower lobe opacity which may represent combination of atelectasis/ infiltrate and effusion. Follow-up to resolution is recommended. D/ / Janine Velez MD / Janine Velez MD Interpreting Provider: Janine Velez MD - Attending Attestation I examined this patient and my medical decision-making was reviewed with the Resident Physician on 10/22/16. I agree with the documented findings, disposition and treatment plan as described except to the extent set forth below. 51 YO M being managed for hepatic encephalopathy, alcoholic liver cirrhsis with portal HTN and hx of alcohol abuse,acute on chronic hyponatremia He did not receive his lactulose overnight This morning, he remains lethargis and responds by saying "hello". He is protecting his airway, his O2 sat on room air is 99% and his BP and HR. Physical exam: VSS, not in distress, opens eyes to name call, sternal rub needed but follows commands, protecting airway, no gurggling, chest is clear. Labs and Imaging reviewed: Electrolytes are back to baseline. .I/O Negative - 3292. CXR is ordered and pending, Ammonia level 162 A/P Acute metabolic encephalopathy secondary to hepatic encephalopathy-Ensurre lactulose. Obtain CXR, patient is protecting his airway Place patient on continuous pulse Oximetry and telemetry Continue librium, continue to taper, continue rifaximin, High risk for aspiration of oral contents and airway compromise Fall precautions He has no drainiable ascites per imaging, low risk for SBP NPO except medications till patient is awake Patient is full code
[2016-10-22] MEDS: Lactulose 200 GM, Sodium Chloride IRRigation 700 ML RC SCH ×3 (09:07→12:48)
[2016-10-22] MEDS: D5% in 0.45% NACL 1,000 ML IVC SCH ×2 (10:32→22:37)
[2016-10-22] MEDS: Melatonin 3 MG TABLET PO SCH (21:00)
--- NOTE | 2016-10-22 22:55 | Nephrology Progress Note ---
Date of Encounter: 10/22/16 Time of Encounter: 10:30 - Assessment and Plan (1) Hyponatremia Current Visit: Yes Status: Acute Follow sodium. Improving. Consider restarting normal saline especially while he is not eating. Regular diet. (2) Cirrhosis Current Visit: Yes Status: Chronic Per primary team. Patient seems to have hepatic encephalopathy. Qualifiers: Hepatic cirrhosis type: alcoholic cirrhosis Ascites presence: with ascites Qualified Code(s): K70.31 - Alcoholic cirrhosis of liver with ascites (3) Hyperkalemia Current Visit: Yes Status: Resolved Resolved. . Subjective Principal diagnosis: Hyponatremia Interval history: Patient was obtunded. Would not wake for sternal rub. Seemed to be protecting his airway. ROS was unobtainable. Objective - Vital Signs Vital signs: Vital Signs Temp Pulse Resp BP Pulse Ox 10/22/16 20:32 99.1 F 96 17 106/69 99 10/22/16 17:38 97.8 F 88 16 93/71 99 10/22/16 15:21 97.7 F 92 18 106/73 98 10/22/16 11:10 97.0 F L 94 16 100/67 99 10/22/16 07:05 96.4 F L 93 16 108/69 99 10/22/16 04:46 97.4 F L 94 16 97/62 99 10/21/16 23:38 97.3 F L 92 16 98/65 98 Intake and Output 10/22/16 10/22/16 10/22/16 07:59 15:59 23:59 Intake Total 0 / 0 0 / 0 1000 / 1000 Output Total 420 / 420 251 / 251 Balance -420 / -420 -251 / -251 1000 / 1000 Intake: IV Fluids 1000 / 1000 D5% And 0.45% Nacl 1000 1000 / 1000 Ml Bag 1,000 ML @ 100 mls /hr IVC .Q10H [facility] Rx#: [id number] Oral 0 / 0 0 / 0 Output: Urine 420 / 420 2-way Urethral 420 / 420 Stool 1 / 1 Catheter 250 / 250 Other: Meal NPO Percent of Meal Consumed 0% Stool Size Small Stool Consistency soft Stool Color Romulo Colored Weight 81.9 kg 81.9 kg 77.7 kg Blood Glucose* 99 87 91 Patient Weight 10/22/16 23:59 Weight 77.7 kg - General Appearance General appearance: Present: well-developed, chronically ill, frail EENT: Present: ATNC Respiratory: Present: course breath sounds (anteriorly) Cardiology: Present: no edema, regular rate, regular rhythm Gastrointestinal: Present: tenderness, distended Integumentary: Present: warm and dry Neurologic: Present: obtunded - Lab 10/22/16 03:11 10/22/16 03:11 Most recent lab results Calcium 9.8 mg/dL (8.6-10.8) 10/22/16 03:11 Phosphorus 3.4 mg/dL (2.3-4.7) 10/17/16 02:04 Magnesium 1.6 mg/dL (1.6-2.6) 10/17/16 02:04 Urine Sodium 106.0 mEq/L 10/17/16 08:13 - VTE Documentation of Mechanical Device: Intermittent pneumatic compression device Consult Discharge Plan - Plan Referrals: Marco A Brown MD [Primary Care Provider] - (patient will follow up with [facility] )
[2016-10-23] MEDS: Lactulose 200 GM, Sodium Chloride IRRigation 700 ML RC SCH ×6 (00:35→21:00)
[2016-10-23] MEDS: Insulin LISPRO 300 UNITS/3 ML VIAL SQ SCH ×4 (01:45→17:54)
[2016-10-23 05:59] LABS: Basophils % 0.7 %; Red Blood Count 3.25 M/mcL (4.19-5.50)
[2016-10-23 06:01] LABS: Eosinophils # 0.3 K/mcL (0.0-0.6); Hematocrit 31.9 % (37.5-50.1); Immature Granulocytes % 0.5 % (0-4); Immature Platelets 0.5 % (1.1-6.1); Lymphocytes # 0.7 K/mcL (0.6-4.6); Lymphocytes % 17.1 %; Mean Corpuscular HGB Conc 34.5 g/dL (31.6-35.5); Mean Corpuscular Hemoglobin 33.8 pg (28.0-33.3); Mean Corpuscular Volume 98.2 fL (83.0-100.0); Mean Platelet Volume 8.1 fL (9.4-12.4); Monocytes # 0.9 K/mcL (0.0-1.3); Monocytes % 20.9 %; Neutrophils # 2.3 K/mcL (1.6-8.9); Red Cell Distribution Width 15.6 % (11.5-14.5); Segmented Neutrophils % 54.8 %
[2016-10-23 06:04] LABS: Platelet Count 85 K/mcL (140-400)
[2016-10-23 06:12] LABS: Alanine Aminotransferase 70 Units/L (0-55); Albumin 2.4 g/dL (3.5-5.0); Albumin/Globulin Ratio 0.6 (1.1-2.2); Alkaline Phosphatase 192 Units/L (38-126); Aspartate Amino Transferase 76 Units/L (5-34); BUN/Creatinine Ratio 30 (6-26); Bilirubin,Total 5.3 mg/dL (0.2-1.2); Blood Urea Nitrogen 22 mg/dL (8-26); Calcium 9.4 mg/dL (8.6-10.8); Carbon Dioxide 24 mEq/L (19-29); Chloride 101 mEq/L (98-109); Globulin 4.2 g/dL (2.4-3.5); Glucose 110 mg/dL (70-99); Osmolality,Calculated 276 (280-300); Potassium 4.1 mEq/L (3.5-4.5); Sodium 131 mEq/L (136-145); Total Protein 6.6 g/dL (6.0-8.3); eGFR For African Americans > 60 (> 60); eGFR For Non-African Americans > 60 (> 60)
[2016-10-23 06:40] LABS: Platelet Estimate Decreased (Normal)
[2016-10-23] MEDS: D5% in 0.45% NACL 1,000 ML IVC SCH (08:16)
[2016-10-23] MEDS: *HR* Heparin 5,000 UNIT/ML VIAL SQ SCH ×2 (08:17→21:00)
--- NOTE | 2016-10-23 11:54 | Internal Med Progress Note ---
Date of Encounter: 10/23/16 Time of Encounter: 11:51 - Assessment and plan (1) Acute delirium Current Visit: Yes Status: Acute Assessment and plan: Due to hepatic encephaloapthy (2) Hepatic encephalopathy Current Visit: Yes Status: Acute Assessment and plan: Continue him on [place] Lactulose Q6hr VERONICA His Ammonia level y/d - 162 Cont close monitoring Ammonia Strict NPO he is high risk for aspiration cont aspiration precautions strict NPO until pt fully awake (3) COPD (chronic obstructive pulmonary disease) Current Visit: No Status: Chronic Assessment and plan: Stable not in exacerbation cont duoneb Qualifiers: COPD type: unspecified COPD Qualified Code(s): J44.9 - Chronic obstructive pulmonary disease, unspecified (4) Cirrhosis of liver Current Visit: No Status: Chronic Qualifiers: Hepatic cirrhosis type: unspecified hepatic cirrhosis Ascites presence: with ascites Qualified Code(s): K74.60 - Unspecified cirrhosis of liver (5) Hyponatremia Current Visit: Yes Status: Acute Assessment and plan: Improved changed the IV fluids to D5 NS @ 75 ml /hr Will give Lasix IV PRN (6) Thrombocytopenia Current Visit: No Status: Chronic Assessment and plan: due to cirrhosis of liver stable platelets (7) Protein calorie malnutrition Current Visit: No Status: Chronic Assessment and plan: Will call the floor to check how long he is not eating if he does not wake up by tomorrow .. consider starting him Clinimex Qualifiers: Qualified Code(s): E44.0 - Moderate protein-calorie malnutrition (8) GERD (gastroesophageal reflux disease) Current Visit: Yes Status: Chronic Assessment and plan: IV protonix Qualifiers: Esophagitis presence: with esophagitis Qualified Code(s): K21.0 - Gastro- esophageal reflux disease with esophagitis - Subjective Interval history: Mr. Rivera is a 51 year old male who presented to the ED with chief complaint of altered mental status and hyperammonemia. Patient was sent from the skilled nursing with constipation for 1 week and distended abdomen which he states is better since having 5 liters of fluid removed recently. Patient was last hospitalized on 10/01/16 for bacterial peritonitis, hepatic encephalopathy, and abdominal pain. Patient states this began 2 weeks ago and has been constipated for 1 week. He reports his altered mental status comes and goes. During this admission, patient is alert and oriented 3. Patient has no known allergies. Patient's medical history includes arthritis, cirrhosis, CHF, COPD, GERD, HLD, HTN, liver disease, osteoporosis, and seizures. Patient also has a psychiatric history of depression and schizophrenia. Patient's ammonia level on admission is 89. Pt was admitted on regular floor and placed him on lactulose PO. Apparently pt has been more confused and sleepy last 2 days and unable to take any PO meds. So pt was transferred to PCU for further care with close monitoring. Pt was placed on Lactulose [place] since last night. He seems to be slightly waking up now. He is still sleepy / sedative. - Constitutional Vitals: Temp Pulse Resp BP Pulse Ox 97.6 F 85 14 104/61 98 10/23/16 11:14 10/23/16 11:14 10/23/16 11:14 10/23/16 11:14 10/23/16 11:14 General appearance: Present: disheveled. Absent: answers questions appropriately - Head Head exam: Present: atraumatic, normal inspection - Neck Neck exam general surgery: Present: supple - Respiratory Respiratory exam: Present: decreased breath sounds, wheezes. Absent: rales, respiratory distress, rhonchi - Cardiovascular Cardiovascular exam: Present: RRR, +S1, +S2. Absent: systolic murmur - GI/Abdominal GI/Abdominal exam: Present: soft. Absent: distended, rebound, rigid, tenderness - Extremities Exam Extremities exam: Absent: calf tenderness, pedal edema, tenderness - Neurological Exam Neurological exam: Present: altered (sleepy) - Psychiatric Additional comments: unable to assess Internal Medicine: Result - Labs CBC & Chem 7: 10/23/16 05:11 10/23/16 05:11 Labs: Short CBC 10/23/16 Range/Units 05:11 WBC 4.2 L (4.3-11.1) K/mcL Hgb 11.0 L (12.9-16.9) g/dL Hct 31.9 L (37.5-50.1) % Plt Count 85 L (140-400) K/mcL Neutrophils # 2.3 (1.6-8.9) K/mcL BMP 10/23/16 05:11 Sodium 131 L Potassium 4.1 Chloride 101 Carbon Dioxide 24 BUN 22 Creatinine 0.74 Glucose 110 H Calcium 9.4 Liver Function 08/11/17 Range/Units 05:11 Total Bilirubin 5.3 H (0.2-1.2) mg/dL AST 76 H (5-34) Units/L ALT 70 H (0-55) Units/L Alkaline Phosphatase 192 H (38-126) Units/L Albumin 2.4 L (3.5-5.0) g/dL - ABG Interpretation ABG results: PT/INR, D-dimer PT 14.6 Seconds (9.4-12.1) H 10/16/16 13:32 - Impressions Impressions Chest X-Ray 10/22/16 08:23 IMPRESSION: No significant change in right lower lobe opacity which may represent combination of atelectasis/ infiltrate and effusion. Follow-up to resolution is recommended. D/ / Janine Velez MD / Janine Velez MD Interpreting Provider: Janine Velez MD - VTE Documentation of Mechanical Device: Intermittent pneumatic compression device Consult Discharge Plan - Plan Referrals: Zoila Vora MD [Non-Partnered Physician] - 11/04/16 2:15 pm
[2016-10-23] MEDS: lamoTRIgine 100 MG TABLET PO SCH (12:10)
[2016-10-23] MEDS: Multivit/Ca/Min/Fe/FA 1 TAB TABLET PO SCH (12:10)
[2016-10-23] MEDS: Folic Acid 1 MG TABLET PO SCH (12:10)
[2016-10-23] MEDS: Zinc Sulfate 220 MG CAPSULE PO SCH (12:11)
[2016-10-23] MEDS: Thiamine (B-1) 100 MG TABLET PO SCH (12:11)
[2016-10-23] MEDS: Pantoprazole 40 MG VIAL IVP SCH (13:29)
[2016-10-23] MEDS: D5% in 0.9% NACL 1,000 ML IVC SCH (13:36)
--- NOTE | 2016-10-23 17:10 | Nephrology Progress Note ---
Date of Encounter: 10/23/16 Time of Encounter: 16:00 - Assessment and Plan (1) Hyponatremia Current Visit: Yes Status: Acute Sodium improving at 131 which is about baseline Continue IVF with D5 NS for now since NPO Liberalize sodium in diet when able to eat (2) Cirrhosis Current Visit: Yes Status: Chronic Per primary team Qualifiers: Hepatic cirrhosis type: alcoholic cirrhosis Ascites presence: with ascites Qualified Code(s): K70.31 - Alcoholic cirrhosis of liver with ascites (3) Acute delirium Current Visit: Yes Status: Acute lactulose per primay team Subjective Principal diagnosis: Hyponatremia Interval history: Interim events noted. Pt seen and examined more awake today Objective - Vital Signs Vital signs: Vital Signs Temp Pulse Resp BP Pulse Ox 10/23/16 15:24 98.3 F 86 14 99/66 99 10/23/16 11:14 97.6 F 85 14 104/61 98 10/23/16 07:56 98 10/23/16 07:46 97.1 F L 84 14 101/59 99 10/23/16 03:59 97.3 F L 98 14 100/62 98 10/23/16 00:42 97.1 F L 94 14 103/65 98 10/22/16 22:59 99 10/22/16 20:32 99.1 F 96 17 106/69 99 10/22/16 17:38 97.8 F 88 16 93/71 99 Intake and Output 10/23/16 10/23/16 10/23/16 07:59 15:59 23:59 Intake Total 1450 / 1450 Output Total 1500 / 1500 400 / 400 Balance -1500 / -1500 1050 / 1050 Intake: IV Fluids 1450 / 1450 D5% And 0.45% Nacl 1000 1450 / 1450 Ml Bag 1,000 ML @ 100 mls /hr IVC .Q10H VERONICA Rx#: [id number] Oral 0 / 0 Output: Catheter 1500 / 1500 400 / 400 Other: Meal Lunch Percent of Meal Consumed 0% Stool Size Moderate Moderate Stool Consistency loose soft Stool Color Brown Yellow # Bowel Movements 1 Weight 77.3 kg Blood Glucose* 114 106 Patient Weight 10/23/16 23:59 Weight 77.3 kg - General Appearance General appearance: Present: chronically ill, fatigue EENT: Present: ATNC, mucous membranes dry Neck: Present: no JVD, supple Respiratory: Present: clear (ant bilat) Cardiology: Present: no edema, normal S1, normal S2 Gastrointestinal: Present: no tenderness, no guarding Integumentary: Present: warm and dry Neurologic: Present: disoriented Musculoskeletal: Present: no deformities Psychiatric: Present: mood/affect appropriate - Lab 10/24/16 09:59 10/24/16 09:59 Most recent lab results Calcium 9.4 mg/dL (8.6-10.8) 10/23/16 05:11 Phosphorus 3.4 mg/dL (2.3-4.7) 10/17/16 02:04 Magnesium 1.6 mg/dL (1.6-2.6) 10/17/16 02:04 Urine Sodium 106.0 mEq/L 10/17/16 08:13 - VTE Documentation of Mechanical Device: Intermittent pneumatic compression device Consult Discharge Plan - Plan Referrals: Zoila Vora MD [Non-Partnered Physician] - 11/04/16 2:15 pm
[2016-10-23] MEDS: Melatonin 3 MG TABLET PO SCH (20:52)
[2016-10-24] MEDS: D5% in 0.9% NACL 1,000 ML IVC SCH ×2 (02:56→15:43)
[2016-10-24] MEDS: Insulin LISPRO 300 UNITS/3 ML VIAL SQ SCH ×4 (05:25→16:00)
[2016-10-24] MEDS: *HR* Heparin 5,000 UNIT/ML VIAL SQ SCH ×2 (05:25→16:00)
[2016-10-24] MEDS: Pantoprazole 40 MG VIAL IVP SCH (08:41)
--- NOTE | 2016-10-24 10:05 | Internal Med Progress Note ---
Date of Encounter: 10/24/16 Time of Encounter: 10:02 - Assessment and plan (1) Acute delirium Current Visit: Yes Status: Acute Assessment and plan: Due to hepatic encephaloapthy (2) Hepatic encephalopathy Current Visit: Yes Status: Acute Assessment and plan: Continue him on [place] Lactulose Q6hr VERONICA His Ammonia level is down to 97 Cont close monitoring Ammonia Strict NPO he is at high risk for aspiration cont aspiration precautions strict NPO until pt fully awakes (3) COPD (chronic obstructive pulmonary disease) Current Visit: No Status: Chronic Assessment and plan: Stable not in exacerbation cont duoneb Qualifiers: COPD type: unspecified COPD Qualified Code(s): J44.9 - Chronic obstructive pulmonary disease, unspecified (4) Cirrhosis of liver Current Visit: No Status: Chronic Qualifiers: Hepatic cirrhosis type: unspecified hepatic cirrhosis Ascites presence: with ascites Qualified Code(s): K74.60 - Unspecified cirrhosis of liver (5) Hyponatremia Current Visit: Yes Status: Acute Assessment and plan: Improved changed the IV fluids to D5 NS @ 75 ml /hr Will give Lasix IV PRN (6) Thrombocytopenia Current Visit: No Status: Chronic Assessment and plan: due to cirrhosis of liver stable platelets (7) Protein calorie malnutrition Current Visit: No Status: Chronic Assessment and plan: will consider starting him on Clinimex today Qualifiers: Qualified Code(s): E44.0 - Moderate protein-calorie malnutrition (8) GERD (gastroesophageal reflux disease) Current Visit: Yes Status: Chronic Assessment and plan: IV protonix Qualifiers: Esophagitis presence: with esophagitis Qualified Code(s): K21.0 - Gastro- esophageal reflux disease with esophagitis - Subjective Interval history: Mr. Rivera is a 51 year old male who presented to the ED with chief complaint of altered mental status and hyperammonemia. Patient was sent from the intermediate with constipation for 1 week and distended abdomen which he states is better since having 5 liters of fluid removed recently. Patient was last hospitalized on 10/01/16 for bacterial peritonitis, hepatic encephalopathy, and abdominal pain. Patient states this began 2 weeks ago and has been constipated for 1 week. He reports his altered mental status comes and goes. During this admission, patient is alert and oriented 3. Patient has no known allergies. Patient's medical history includes arthritis, cirrhosis, CHF, COPD, GERD, HLD, HTN, liver disease, osteoporosis, and seizures. Patient also has a psychiatric history of depression and schizophrenia. Patient's ammonia level on admission is 89. Pt was admitted on regular floor and placed him on lactulose PO. Apparently pt has been more confused and sleepy last 2 days and unable to take any PO meds. So pt was transferred to PCU for further care with close monitoring. Pt was placed on Lactulose [place]. He is little more awake and alert today. Following few commands , however still drowsy and lethargic - Constitutional Vitals: Temp Pulse Resp BP Pulse Ox 98.3 F 90 14 96/68 97 10/24/16 08:45 10/24/16 08:45 10/24/16 08:45 10/24/16 08:45 10/24/16 08:45 General appearance: Present: A&O X 1, disheveled. Absent: answers questions appropriately - Head Head exam: Present: atraumatic, normal inspection - Respiratory Respiratory exam: Present: decreased breath sounds, wheezes. Absent: rales, respiratory distress, rhonchi - Cardiovascular Cardiovascular exam: Present: RRR, +S1, +S2. Absent: systolic murmur - GI/Abdominal GI/Abdominal exam: Present: normal bowel sounds, soft. Absent: rebound, rigid, tenderness - Extremities Exam Extremities exam: Present: pedal edema. Absent: calf tenderness, tenderness - Neurological Exam Neurological exam: Present: altered Internal Medicine: Result - Labs CBC & Chem 7: 10/23/16 05:11 10/23/16 05:11 - ABG Interpretation ABG results: PT/INR, D-dimer PT 14.6 Seconds (9.4-12.1) H 10/16/16 13:32 - VTE Documentation of Mechanical Device: Intermittent pneumatic compression device Consult Discharge Plan - Plan Referrals: Zoila Vora MD [Non-Partnered Physician] - 11/04/16 2:15 pm
[2016-10-24 10:29] LABS: Basophils % 0.9 %; Hemoglobin 10.2 g/dL (12.9-16.9); Immature Granulocytes % 0.6 % (0-4); Red Cell Distribution Width 15.5 % (11.5-14.5)
[2016-10-24 10:31] LABS: Eosinophils # 0.2 K/mcL (0.0-0.6); Eosinophils % 6.3 %; Hematocrit 29.2 % (37.5-50.1); Immature Platelets 0.3 % (1.1-6.1); Lymphocytes % 31.3 %; Mean Corpuscular HGB Conc 34.9 g/dL (31.6-35.5); Mean Corpuscular Hemoglobin 34.6 pg (28.0-33.3); Mean Platelet Volume 8.2 fL (9.4-12.4); Monocytes # 0.7 K/mcL (0.0-1.3); Monocytes % 20.4 %; Neutrophils # 1.3 K/mcL (1.6-8.9); Red Blood Count 2.95 M/mcL (4.19-5.50); Segmented Neutrophils % 40.5 %
[2016-10-24 10:43] LABS: Alanine Aminotransferase 62 Units/L (0-55); Albumin 2.1 g/dL (3.5-5.0); Albumin/Globulin Ratio 0.6 (1.1-2.2); Alkaline Phosphatase 159 Units/L (38-126); Aspartate Amino Transferase 71 Units/L (5-34); BUN/Creatinine Ratio 23 (6-26); Bilirubin,Total 3.7 mg/dL (0.2-1.2); Blood Urea Nitrogen 15 mg/dL (8-26); Calcium 8.9 mg/dL (8.6-10.8); Carbon Dioxide 21 mEq/L (19-29); Chloride 108 mEq/L (98-109); Globulin 3.6 g/dL (2.4-3.5); Glucose 111 mg/dL (70-99); Magnesium 1.1 mg/dL (1.6-2.6); Osmolality,Calculated 280 (280-300); Potassium 3.9 mEq/L (3.5-4.5); Sodium 134 mEq/L (136-145); Total Protein 5.7 g/dL (6.0-8.3); eGFR For African Americans > 60 (> 60); eGFR For Non-African Americans > 60 (> 60)
[2016-10-24 10:53] LABS: Platelet Count 74 K/mcL (140-400)
--- NOTE | 2016-10-24 11:24 | Nephrology Progress Note ---
Date of Encounter: 10/24/16 Time of Encounter: 11:20 - Assessment and Plan (1) Hyponatremia Current Visit: Yes Status: Acute Sodium improving at 134 which is about baseline Continue IVF with D5 NS for now since NPO Liberalize sodium in diet when able to eat Will sign off, please reconsult prn (2) Cirrhosis Current Visit: Yes Status: Chronic Per primary team Qualifiers: Hepatic cirrhosis type: alcoholic cirrhosis Ascites presence: with ascites Qualified Code(s): K70.31 - Alcoholic cirrhosis of liver with ascites (3) Acute delirium Current Visit: Yes Status: Acute lactulose per primay team Subjective Principal diagnosis: Hyponatremia Interval history: Interim events noted. Pt seen and examined awake and responsive but lethargic. He denied any new complaints. Objective - Vital Signs Vital signs: Vital Signs Temp Pulse Resp BP Pulse Ox 10/24/16 08:45 98.3 F 90 14 96/68 97 10/24/16 07:39 98.3 F 90 14 96/68 97 10/24/16 04:33 97.7 F 88 16 100/67 97 10/23/16 23:33 87 94/64 99 10/23/16 22:15 97 10/23/16 20:05 16 98 10/23/16 19:29 97.9 F 86 15 91/64 97 10/23/16 15:24 98.3 F 86 14 99/66 99 Intake and Output 10/23/16 10/24/16 10/24/16 23:59 07:59 15:59 Intake Total 1000 / 1000 0 / 0 Output Total 250 / 250 325 / 325 0 / 0 Balance -250 / -250 675 / 675 0 / 0 Intake: IV Fluids 1000 / 1000 D5% And 0.9% Nacl 1000 Ml 1000 / 1000 1,000 ML @ 75 mls/hr IVC .[id number] VERONICA Rx#: [id number] Oral 0 / 0 0 / 0 Output: Catheter 250 / 250 325 / 325 0 / 0 Other: Stool Size Large Stool Consistency liquid Stool Color Yellow Weight 77.8 kg Blood Glucose* 89 Patient Weight 10/24/16 23:59 Weight 77.8 kg - General Appearance General appearance: Present: chronically ill, fatigue EENT: Present: ATNC, mucous membranes moist Neck: Present: no JVD, supple Respiratory: Present: clear (ant bilat) Cardiology: Present: no edema, normal S1, normal S2 Gastrointestinal: Present: no tenderness, no guarding Integumentary: Present: warm and dry Neurologic: Present: disoriented Musculoskeletal: Present: no deformities Psychiatric: Present: mood/affect appropriate - Lab 10/24/16 09:59 10/24/16 09:59 Most recent lab results Calcium 8.9 mg/dL (8.6-10.8) 10/24/16 09:59 Phosphorus 3.4 mg/dL (2.3-4.7) 10/17/16 02:04 Magnesium 1.1 mg/dL (1.6-2.6) L 10/24/16 09:59 Urine Sodium 106.0 mEq/L 10/17/16 08:13 - VTE Documentation of Mechanical Device: Intermittent pneumatic compression device Consult Discharge Plan - Plan Referrals: Zoila Vora MD [Non-Partnered Physician] - 11/04/16 2:15 pm
[2016-10-24] MEDS: lamoTRIgine 100 MG TABLET PO SCH (12:28)
[2016-10-24] MEDS: Multivit/Ca/Min/Fe/FA 1 TAB TABLET PO SCH (12:28)
[2016-10-24] MEDS: Folic Acid 1 MG TABLET PO SCH (12:28)
[2016-10-24] MEDS: Zinc Sulfate 220 MG CAPSULE PO SCH (12:28)
[2016-10-24] MEDS: Thiamine (B-1) 100 MG TABLET PO SCH (12:28)
[2016-10-24] MEDS: Lactulose Oral Soln 20 GM/30 ML UDC PO SCH ×3 (14:25→23:38)
[2016-10-24] MEDS: Melatonin 3 MG TABLET PO SCH (19:54)
[2016-10-24] MEDS: *HR* Morphine 2 MG/ML SYRINGE IVP PRN ×2 (19:55→23:39)
[2016-10-25] MEDS: Insulin LISPRO 300 UNITS/3 ML VIAL SQ SCH ×2 (00:20→05:38)
[2016-10-25 01:56] LABS: Basophils % 0.8 %; Hemoglobin 10.3 g/dL (12.9-16.9); Lymphocytes % 27.2 %
[2016-10-25 01:58] LABS: Eosinophils # 0.2 K/mcL (0.0-0.6); Eosinophils % 4.9 %; Hematocrit 30.2 % (37.5-50.1); Immature Granulocytes % 0.5 % (0-4); Immature Platelets 0.3 % (1.1-6.1); Lymphocytes # 1.1 K/mcL (0.6-4.6); Mean Corpuscular HGB Conc 34.1 g/dL (31.6-35.5); Mean Corpuscular Hemoglobin 33.8 pg (28.0-33.3); Mean Platelet Volume 8.4 fL (9.4-12.4); Monocytes % 24.4 %; Red Blood Count 3.05 M/mcL (4.19-5.50); Red Cell Distribution Width 15.6 % (11.5-14.5); Segmented Neutrophils % 42.2 %
[2016-10-25 02:10] LABS: Alanine Aminotransferase 71 Units/L (0-55); Albumin 2.2 g/dL (3.5-5.0); Albumin/Globulin Ratio 0.6 (1.1-2.2); Alkaline Phosphatase 167 Units/L (38-126); Aspartate Amino Transferase 83 Units/L (5-34); BUN/Creatinine Ratio 21 (6-26); Bilirubin,Total 3.2 mg/dL (0.2-1.2); Blood Urea Nitrogen 14 mg/dL (8-26); Calcium 8.4 mg/dL (8.6-10.8); Carbon Dioxide 21 mEq/L (19-29); Chloride 111 mEq/L (98-109); Globulin 3.6 g/dL (2.4-3.5); Glucose 108 mg/dL (70-99); Magnesium 1.4 mg/dL (1.6-2.6); Osmolality,Calculated 285 (280-300); Potassium 4.3 mEq/L (3.5-4.5); Total Protein 5.8 g/dL (6.0-8.3); eGFR For African Americans > 60 (> 60); eGFR For Non-African Americans > 60 (> 60)
[2016-10-25 02:13] LABS: Neutrophils # 1.7 K/mcL (1.6-8.9)
[2016-10-25 02:14] LABS: Platelet Count 76 K/mcL (140-400); Platelet Estimate Decreased (Normal)
[2016-10-25 02:15] LABS: Sodium 137 mEq/L (136-145); Toxic Granulation Present (Not Present)
[2016-10-25] MEDS: D5% in 0.9% NACL 1,000 ML IVC SCH (03:55)
[2016-10-25] MEDS: Lactulose Oral Soln 20 GM/30 ML UDC PO SCH ×4 (05:28→22:33)
[2016-10-25] MEDS: *HR* Heparin 5,000 UNIT/ML VIAL SQ SCH ×2 (05:28→16:18)
[2016-10-25] MEDS: Thiamine (B-1) 100 MG TABLET PO SCH (07:23)
[2016-10-25] MEDS: Zinc Sulfate 220 MG CAPSULE PO SCH (07:23)
[2016-10-25] MEDS: Multivit/Ca/Min/Fe/FA 1 TAB TABLET PO SCH (07:23)
[2016-10-25] MEDS: lamoTRIgine 100 MG TABLET PO SCH (07:23)
[2016-10-25] MEDS: Folic Acid 1 MG TABLET PO SCH (07:23)
[2016-10-25] MEDS: Pantoprazole 40 MG VIAL IVP SCH (07:23)
[2016-10-25] MEDS ORDERED: Potassium Chloride Elixir 20 MEQ/15 ML UDC PO ONE (07:42)
[2016-10-25] MEDS ORDERED: Furosemide 40 MG/4 ML VIAL IVP ONE (08:17)
--- NOTE | 2016-10-25 08:20 | Internal Med Progress Note ---
Date of Encounter: 10/25/16 Time of Encounter: 08:18 - Assessment and plan (1) Acute delirium Current Visit: Yes Status: Acute Assessment and plan: Due to hepatic encephaloapthy (2) Hepatic encephalopathy Current Visit: Yes Status: Acute Assessment and plan: Continue him on [place] Lactulose Q6hr VERONICA His Ammonia level is down to 82 Cont close monitoring Ammonia Changed to PO Lactulose he is at high risk for aspiration cont aspiration precautions (3) COPD (chronic obstructive pulmonary disease) Current Visit: No Status: Chronic Assessment and plan: Stable not in exacerbation cont duoneb Qualifiers: COPD type: unspecified COPD Qualified Code(s): J44.9 - Chronic obstructive pulmonary disease, unspecified (4) Cirrhosis of liver Current Visit: No Status: Chronic Qualifiers: Hepatic cirrhosis type: unspecified hepatic cirrhosis Ascites presence: with ascites Qualified Code(s): K74.60 - Unspecified cirrhosis of liver (5) Hyponatremia Current Visit: Yes Status: Acute Assessment and plan: Improved Looks volume overload now.. Will give Lasix IV PRN (6) Thrombocytopenia Current Visit: No Status: Chronic Assessment and plan: due to cirrhosis of liver stable platelets (7) Protein calorie malnutrition Current Visit: No Status: Chronic Assessment and plan: tolerating PO intake well consulted nutrition Qualifiers: Qualified Code(s): E44.0 - Moderate protein-calorie malnutrition (8) GERD (gastroesophageal reflux disease) Current Visit: Yes Status: Chronic Assessment and plan: IV protonix Qualifiers: Esophagitis presence: with esophagitis Qualified Code(s): K21.0 - Gastro- esophageal reflux disease with esophagitis - Subjective Interval history: Mr. Rivera is a 51 year old male who presented to the ED with chief complaint of altered mental status and hyperammonemia. Patient was sent from the intermediate with constipation for 1 week and distended abdomen which he states is better since having 5 liters of fluid removed recently. Patient was last hospitalized on 10/01/16 for bacterial peritonitis, hepatic encephalopathy, and abdominal pain. Patient states this began 2 weeks ago and has been constipated for 1 week. He reports his altered mental status comes and goes. During this admission, patient is alert and oriented 3. Patient has no known allergies. Patient's medical history includes arthritis, cirrhosis, CHF, COPD, GERD, HLD, HTN, liver disease, osteoporosis, and seizures. Patient also has a psychiatric history of depression and schizophrenia. Patient's ammonia level on admission is 89. Pt was admitted on regular floor and placed him on lactulose PO. Apparently pt had been more confused and sleepy last 2 days and unable to take any PO meds. So pt was transferred to PCU for further care with close monitoring. Pt was placed on Lactulose [place]. 10/25/16 - He is more awake and alert today. Following all the commands , however still very lethargic. Tolerating PO intake well. - Constitutional Vitals: Temp Pulse Resp BP Pulse Ox 97.6 F 94 16 91/69 98 10/25/16 07:35 10/25/16 07:35 10/25/16 07:35 10/25/16 07:35 10/25/16 07:35 General appearance: Present: disheveled, A&O X 2. Absent: answers questions appropriately - Head Head exam: Present: atraumatic, normal inspection - Respiratory Respiratory exam: Present: decreased breath sounds, rales (at basal regions), wheezes. Absent: respiratory distress, rhonchi - Cardiovascular Cardiovascular exam: Present: RRR, +S1, +S2. Absent: systolic murmur - GI/Abdominal GI/Abdominal exam: Present: distended, normal bowel sounds, soft. Absent: rebound, rigid, tenderness - Extremities Exam Extremities exam: Present: pedal edema. Absent: calf tenderness, tenderness - Neurological Exam Neurological exam: Present: alert, oriented X3 - Psychiatric Psychiatric exam: Present: depressed Internal Medicine: Result - Labs CBC & Chem 7: 10/25/16 01:27 10/25/16 01:27 Labs: Short CBC 10/24/16 10/25/16 Range/Units 09:59 01:27 WBC 3.2 L 3.9 L (4.3-11.1) K/mcL Hgb 10.2 L 10.3 L (12.9-16.9) g/dL Hct 29.2 L 30.2 L (37.5-50.1) % Plt Count 74 L 76 L (140-400) K/mcL Neutrophils # 1.3 L 1.7 (1.6-8.9) K/mcL BMP 10/24/16 10/25/16 09:59 01:27 Sodium 134 L 137 Potassium 3.9 4.3 Chloride 108 111 H Carbon Dioxide 21 21 BUN 15 14 Creatinine 0.66 L 0.66 L Glucose 111 H 108 H Calcium 8.9 8.4 L Liver Function 10/24/16 10/25/16 Range/Units 09:59 01:27 Total Bilirubin 3.7 H 3.2 H (0.2-1.2) mg/dL AST 71 H 83 H (5-34) Units/L ALT 62 H 71 H (0-55) Units/L Alkaline Phosphatase 159 H 167 H (38-126) Units/L Albumin 2.1 L 2.2 L (3.5-5.0) g/dL - ABG Interpretation ABG results: PT/INR, D-dimer PT 14.6 Seconds (9.4-12.1) H 10/16/16 13:32 - VTE Documentation of Mechanical Device: Intermittent pneumatic compression device Consult Discharge Plan - Plan Referrals: Zoila Vora MD [Non-Partnered Physician] - 11/04/16 2:15 pm
[2016-10-25] MEDS: Magnesium Sulfate 2 GM in D5% in Water 100 ML IVPB SCH ×2 (08:30→11:15)
[2016-10-25] MEDS: *HR* OxyCODONE Immed Rel 5 MG TABLET PO PRN (16:17)
[2016-10-25] MEDS: Melatonin 3 MG TABLET PO SCH (22:34)
[2016-10-26 05:36] LABS: Alanine Aminotransferase 73 Units/L (0-55); Albumin 2.2 g/dL (3.5-5.0); Albumin/Globulin Ratio 0.6 (1.1-2.2); Alkaline Phosphatase 172 Units/L (38-126); Aspartate Amino Transferase 87 Units/L (5-34); BUN/Creatinine Ratio 22 (6-26); Bilirubin,Total 3.3 mg/dL (0.2-1.2); Blood Urea Nitrogen 15 mg/dL (8-26); Calcium 8.9 mg/dL (8.6-10.8); Carbon Dioxide 25 mEq/L (19-29); Chloride 104 mEq/L (98-109); Globulin 3.7 g/dL (2.4-3.5); Glucose 94 mg/dL (70-99); Magnesium 1.8 mg/dL (1.6-2.6); Osmolality,Calculated 277 (280-300); Potassium 4.7 mEq/L (3.5-4.5); Sodium 133 mEq/L (136-145); Total Protein 5.9 g/dL (6.0-8.3); eGFR For African Americans > 60 (> 60); eGFR For Non-African Americans > 60 (> 60)
[2016-10-26] MEDS: *HR* Heparin 5,000 UNIT/ML VIAL SQ SCH ×2 (06:51→18:20)
[2016-10-26] MEDS: Lactulose Oral Soln 20 GM/30 ML UDC PO SCH ×4 (06:52→21:35)
[2016-10-26] MEDS: Thiamine (B-1) 100 MG TABLET PO SCH (10:04)
[2016-10-26] MEDS: lamoTRIgine 100 MG TABLET PO SCH (10:04)
[2016-10-26] MEDS: Folic Acid 1 MG TABLET PO SCH (10:04)
[2016-10-26] MEDS: Multivit/Ca/Min/Fe/FA 1 TAB TABLET PO SCH (10:04)
[2016-10-26] MEDS: Zinc Sulfate 220 MG CAPSULE PO SCH (10:04)
--- NOTE | 2016-10-26 15:54 | Internal Med Progress Note ---
Date of Encounter: 10/26/16 Time of Encounter: 15:52 - Assessment and plan (1) Acute delirium Current Visit: Yes Status: Acute Assessment and plan: Due to hepatic encephaloapthy Improving..seems to be at his baseline now (2) Hepatic encephalopathy Current Visit: Yes Status: Acute Assessment and plan: No BM since y/d His Ammonia level is still in 80's will increase his Lactulose to 30gm QID Cont close monitoring Ammonia he is at high risk for aspiration cont aspiration precautions (3) COPD (chronic obstructive pulmonary disease) Current Visit: No Status: Chronic Assessment and plan: Stable not in exacerbation cont duoneb Qualifiers: COPD type: unspecified COPD Qualified Code(s): J44.9 - Chronic obstructive pulmonary disease, unspecified (4) Cirrhosis of liver Current Visit: No Status: Chronic Qualifiers: Hepatic cirrhosis type: unspecified hepatic cirrhosis Ascites presence: with ascites Qualified Code(s): K74.60 - Unspecified cirrhosis of liver (5) Hyponatremia Current Visit: Yes Status: Acute Assessment and plan: Improved Recieved 1 dose IV lasix y/d stable Na (6) Thrombocytopenia Current Visit: No Status: Chronic Assessment and plan: due to cirrhosis of liver stable platelets (7) Protein calorie malnutrition Current Visit: No Status: Chronic Assessment and plan: tolerating PO intake well consulted nutrition Qualifiers: Qualified Code(s): E44.0 - Moderate protein-calorie malnutrition (8) GERD (gastroesophageal reflux disease) Current Visit: Yes Status: Chronic Assessment and plan: IV protonix Qualifiers: Esophagitis presence: with esophagitis Qualified Code(s): K21.0 - Gastro- esophageal reflux disease with esophagitis - Subjective Interval history: Mr. Rivera is a 51 year old male who presented to the ED with chief complaint of altered mental status and hyperammonemia. Patient was sent from the [facility] with constipation for 1 week and distended abdomen which he states is better since having 5 liters of fluid removed recently. Patient was last hospitalized on 10/01/16 for bacterial peritonitis, hepatic encephalopathy, and abdominal pain. Patient states this began 2 weeks ago and has been constipated for 1 week. He reports his altered mental status comes and goes. During this admission, patient is alert and oriented 3. Patient has no known allergies. Patient's medical history includes arthritis, cirrhosis, CHF, COPD, GERD, HLD, HTN, liver disease, osteoporosis, and seizures. Patient also has a psychiatric history of depression and schizophrenia. Patient's ammonia level on admission is 89. Pt was admitted on regular floor and placed him on lactulose PO. Apparently pt had been more confused and sleepy last 2 days and unable to take any PO meds. So pt was transferred to PCU for further care with close monitoring. Pt was placed on Lactulose [place]. 10/25/16 - He is more awake and alert today. Following all the commands , however still very lethargic. Tolerating PO intake well. 10/26/16- No events over night. Tolerating PO intake well, However still looks little confused..could be his baseline - Constitutional Vitals: Temp Pulse Resp BP Pulse Ox 97.3 F L 92 16 94/59 97 10/26/16 15:26 10/26/16 15:26 10/26/16 15:26 10/26/16 15:26 10/26/16 15:26 General appearance: Present: disheveled, A&O X 2. Absent: answers questions appropriately - Head Head exam: Present: atraumatic, normal inspection - Respiratory Respiratory exam: Present: decreased breath sounds, wheezes. Absent: respiratory distress, rhonchi - Cardiovascular Cardiovascular exam: Present: RRR, +S1, +S2. Absent: systolic murmur - GI/Abdominal GI/Abdominal exam: Present: distended, normal bowel sounds, soft. Absent: rebound, rigid, tenderness - Extremities Exam Extremities exam: Absent: calf tenderness, pedal edema, tenderness - Neurological Exam Neurological exam: Present: altered - Psychiatric Psychiatric exam: Present: depressed Internal Medicine: Result - Labs CBC & Chem 7: 10/25/16 01:27 10/26/16 04:57 Labs: BMP 10/26/16 04:57 Sodium 133 L Potassium 4.7 H Chloride 104 Carbon Dioxide 25 BUN 15 Creatinine 0.69 L Glucose 94 Calcium 8.9 Liver Function 10/26/16 Range/Units 04:57 Total Bilirubin 3.3 H (0.2-1.2) mg/dL AST 87 H (5-34) Units/L ALT 73 H (0-55) Units/L Alkaline Phosphatase 172 H (38-126) Units/L Albumin 2.2 L (3.5-5.0) g/dL - ABG Interpretation ABG results: PT/INR, D-dimer PT 14.6 Seconds (9.4-12.1) H 10/16/16 13:32 - VTE Documentation of Mechanical Device: Intermittent pneumatic compression device Consult Discharge Plan - Plan Referrals: Zoila Vora MD [Non-Partnered Physician] - 11/04/16 2:15 pm
[2016-10-26] MEDS: Melatonin 3 MG TABLET PO SCH (21:34)
[2016-10-27 04:13] LABS: BUN/Creatinine Ratio 25 (6-26); Blood Urea Nitrogen 19 mg/dL (8-26); Calcium 9.2 mg/dL (8.6-10.8); Carbon Dioxide 25 mEq/L (19-29); Chloride 102 mEq/L (98-109); Glucose 103 mg/dL (70-99); Osmolality,Calculated 273 (280-300); Potassium 4.6 mEq/L (3.5-4.5); Sodium 130 mEq/L (136-145); eGFR For African Americans > 60 (> 60); eGFR For Non-African Americans > 60 (> 60)
[2016-10-27 04:14] LABS: Alanine Aminotransferase 78 Units/L (0-55); Albumin 2.2 g/dL (3.5-5.0); Albumin/Globulin Ratio 0.6 (1.1-2.2); Alkaline Phosphatase 180 Units/L (38-126); Aspartate Amino Transferase 90 Units/L (5-34); Bilirubin,Total 3.3 mg/dL (0.2-1.2); Globulin 3.7 g/dL (2.4-3.5); Total Protein 5.9 g/dL (6.0-8.3)
[2016-10-27 04:18] LABS: Eosinophils # 0.2 K/mcL (0.0-0.6); Hematocrit 29.1 % (37.5-50.1); Immature Platelets 0.7 % (1.1-6.1); Mean Corpuscular HGB Conc 34.4 g/dL (31.6-35.5); Mean Corpuscular Hemoglobin 34.4 pg (28.0-33.3); Mean Platelet Volume 8.6 fL (9.4-12.4); Red Blood Count 2.91 M/mcL (4.19-5.50); Red Cell Distribution Width 15.5 % (11.5-14.5)
[2016-10-27 04:22] LABS: Platelet Count 65 K/mcL (140-400)
[2016-10-27 04:49] LABS: Basophils # 0.1 K/mcL (0.0-0.2); Large Platelets Present (Not Present); Lymphocytes # 0.6 K/mcL (0.6-4.6); Monocytes # 0.7 K/mcL (0.0-1.3); Neutrophils # 3.2 K/mcL (1.6-8.9); Platelet Estimate Decreased (Normal); Toxic Granulation Present (Not Present)
[2016-10-27] MEDS: *HR* Heparin 5,000 UNIT/ML VIAL SQ SCH ×2 (07:03→17:15)
[2016-10-27] MEDS: Lactulose Oral Soln 20 GM/30 ML UDC PO SCH ×4 (07:03→21:07)
[2016-10-27] MEDS: lamoTRIgine 100 MG TABLET PO SCH (08:51)
[2016-10-27] MEDS: Thiamine (B-1) 100 MG TABLET PO SCH (08:51)
[2016-10-27] MEDS: Zinc Sulfate 220 MG CAPSULE PO SCH (08:51)
[2016-10-27] MEDS: Folic Acid 1 MG TABLET PO SCH (08:51)
[2016-10-27] MEDS: Multivit/Ca/Min/Fe/FA 1 TAB TABLET PO SCH (08:51)
[2016-10-27] MEDS ORDERED: Scopolamine Patch 1.5 MG PATCH.TD72 TD ONE (16:40)
--- NOTE | 2016-10-27 16:48 | Internal Med Progress Note ---
<Mika Georges - Last Filed: 10/27/16 16:46> Date of Encounter: 10/27/16 Time of Encounter: 16:46 - Assessment and plan (1) Acute encephalopathy Current Visit: Yes Status: Acute Assessment and plan: Acute encephalopathy, metabolic - secondary to end-stage liver cirrhosis and electrolyte disturbances Currently on Lactulose 30 gm q6hr with goal of 2-3 BM a day Continue with higher doses of Rifaximin at 600 BID IR previously consulted for therapeutic and or diagnostic drainage but there was no fluid present on 10/21 Continue supportive measures with Fall precautions and telemetry He does have bed hold at [facility] once able to DC (2) Hyponatremia Current Visit: Yes Status: Acute Assessment and plan: Acute on chronic severe hyponatremia Sodium slightly decreased to 130 from 133 Will start on fluids for next 12 hours with D5 NS at 100 ml/hr (3) Alcohol intoxication Current Visit: Yes Status: Resolved Assessment and plan: Patient presented with ethyl alcohol level of 128, known to leave the SNF to go and drink Also has utox positive for amphetamines Continue multivitamins including Thiamine and folic acid CIWA protocol has been discontinued and he has no more Librium due to AMS Qualifiers: Complication of substance-induced condition: uncomplicated Qualified Code(s ): F10.920 - Alcohol use, unspecified with intoxication, uncomplicated (4) Cirrhosis Current Visit: No Status: Chronic Assessment and plan: Has h/o portal HTN and varicies s/p banding Hb, platelets are stable near baseline Currently on [facility] transplant list but he continues to drink Qualifiers: Qualified Code(s): K74.60 - Unspecified cirrhosis of liver (5) Hepatic encephalopathy Current Visit: No Status: Chronic Assessment and plan: Management as above for acute encephalopathy Ammonia levels down to 68 yesterday, will recheck (6) Hyperammonemia Current Visit: Yes Status: Acute Assessment and plan: Likely contributing to acute encephalopathy Currently on Lactulose for goal BM of 2-3 day (7) DVT prophylaxis Current Visit: Yes Status: Acute Assessment and plan: Continue SCDs, avoid anticoagulation due to liver disease and thrombocytopenia - Subjective Interval history: Pt seen and examined. He is awake and alert this morning and answering questions appropriately. He does complain of generalized abdominal pain but does not have chest pain, shortness of breath, nausea, or vomiting. He did report having a large BM last night. - Constitutional Vitals: Temp Pulse Resp BP Pulse Ox 96.3 F L 97 16 93/56 99 10/27/16 11:00 10/27/16 11:00 10/27/16 11:00 10/27/16 11:00 10/27/16 11:00 General appearance: Present: disheveled, A&O X 3, pleasant, no acute distress, answers questions appropriately - Head Head exam: Present: atraumatic, normocephalic - Eye Eye exam: Present: PERRL, conjuntiva pink, sclera anicteric - Neck Neck exam general surgery: Present: supple, trachea midline. Absent: lymphadenopathy Additional comments: excessive drooling - Respiratory Respiratory exam: Present: rhonchi (R > L). Absent: accessory muscle use, rales , wheezes - Cardiovascular Cardiovascular exam: Present: RRR, +S1, +S2. Absent: diastolic murmur, gallop, rubs, systolic murmur - GI/Abdominal GI/Abdominal exam: Present: distended, normal bowel sounds, soft, tenderness ( generalized), no peritoneal signs. Absent: firm, guarding - Extremities Exam Extremities exam: Present: warm, radial pulses palpable and symmetrical. Absent : calf tenderness, cyanotic, pedal edema - Neurological Exam Neurological exam: Present: alert, oriented X3, no focal deficits. Absent: strengths equal and symetr throughout (2/5 strenght in lower extremities bilaterally), facial droop, speech deficit - Skin Skin exam: Present: dry, intact Internal Medicine: Result - Labs CBC & Chem 7: 10/27/16 03:55 10/27/16 03:55 Labs: Short CBC 10/27/16 Range/Units 03:55 WBC 4.8 (4.3-11.1) K/mcL Hgb 10.0 L (12.9-16.9) g/dL Hct 29.1 L (37.5-50.1) % Plt Count 65 L (140-400) K/mcL Neutrophils # 3.2 (1.6-8.9) K/mcL BMP 10/27/16 03:55 Sodium 130 L Potassium 4.6 H Chloride 102 Carbon Dioxide 25 BUN 19 Creatinine 0.75 Glucose 103 H Calcium 9.2 Liver Function 10/27/16 Range/Units 03:55 Total Bilirubin 3.3 H (0.2-1.2) mg/dL AST 90 H (5-34) Units/L ALT 78 H (0-55) Units/L Alkaline Phosphatase 180 H (38-126) Units/L Albumin 2.2 L (3.5-5.0) g/dL - ABG Interpretation ABG results: PT/INR, D-dimer PT 14.6 Seconds (9.4-12.1) H 10/16/16 13:32 - VTE Documentation of Mechanical Device: Intermittent pneumatic compression device Consult Discharge Plan - Plan Referrals: Zoila Vora MD [Non-Partnered Physician] - 11/04/16 2:15 pm <Kevyn Culp P - Last Filed: 10/27/16 17:24> Date of Encounter: 10/27/16 - Constitutional Vitals: Temp Pulse Resp BP Pulse Ox 96.3 F L 97 16 93/56 99 10/27/16 11:00 10/27/16 11:00 10/27/16 11:00 10/27/16 11:00 10/27/16 11:00 Internal Medicine: Result - Labs CBC & Chem 7: 10/27/16 03:55 10/27/16 03:55 Labs: Short CBC 10/27/16 Range/Units 03:55 WBC 4.8 (4.3-11.1) K/mcL Hgb 10.0 L (12.9-16.9) g/dL Hct 29.1 L (37.5-50.1) % Plt Count 65 L (140-400) K/mcL Neutrophils # 3.2 (1.6-8.9) K/mcL BMP 10/27/16 03:55 Sodium 130 L Potassium 4.6 H Chloride 102 Carbon Dioxide 25 BUN 19 Creatinine 0.75 Glucose 103 H Calcium 9.2 Liver Function 10/27/16 Range/Units 03:55 Total Bilirubin 3.3 H (0.2-1.2) mg/dL AST 90 H (5-34) Units/L ALT 78 H (0-55) Units/L Alkaline Phosphatase 180 H (38-126) Units/L Albumin 2.2 L (3.5-5.0) g/dL - ABG Interpretation ABG results: PT/INR, D-dimer PT 14.6 Seconds (9.4-12.1) H 10/16/16 13:32 - Attending Attestation I examined this patient and my medical decision-making was reviewed with the Resident Physician. I agree with the documented findings, disposition and treatment plan as described except to the extent set forth below.
[2016-10-27] MEDS: D5% in 0.9% NACL 1,000 ML IVC SCH (17:35)
[2016-10-27] MEDS: Melatonin 3 MG TABLET PO SCH (21:08)
[2016-10-27] MEDS: *HR* OxyCODONE Immed Rel 5 MG TABLET PO PRN (21:15)
[2016-10-28] MEDS ORDERED: 0.9 % Sodium Chloride 1,000 ML IVC ONE (00:43)
[2016-10-28] MEDS ORDERED: 0.9 % Sodium Chloride 500 ML IVC ONE ×2 (00:54→02:46)
[2016-10-28] MEDS ORDERED: 0.9 % Sodium Chloride 500 ML ONE (01:02)
[2016-10-28] MEDS: D5% in 0.9% NACL 1,000 ML IVC SCH (01:23)
[2016-10-28] MEDS ORDERED: Albumin 25% 25gram/100mL 25 GM/100 ML IV.SOLN IVPB SCH ×2 (03:00→08:00)
[2016-10-28] MEDS: Lactulose Oral Soln 20 GM/30 ML UDC PO SCH ×4 (03:00→21:32)
[2016-10-28] MEDS: Albumin 25% 25gram/100mL 25 GM/100 ML IV.SOLN IVPB SCH ×3 (03:54→09:58)
[2016-10-28 03:58] LABS: Basophils % 0.6 %; Eosinophils # 0.3 K/mcL (0.0-0.6); Eosinophils % 5.1 %; Hematocrit 25.5 % (37.5-50.1); Hemoglobin 8.9 g/dL (12.9-16.9); Immature Granulocytes % 0.4 % (0-4); Immature Platelets 0.8 % (1.1-6.1); Lymphocytes % 20.9 %; Mean Corpuscular HGB Conc 34.9 g/dL (31.6-35.5); Mean Corpuscular Hemoglobin 35.3 pg (28.0-33.3); Mean Corpuscular Volume 101.2 fL (83.0-100.0); Mean Platelet Volume 8.8 fL (9.4-12.4); Monocytes # 0.8 K/mcL (0.0-1.3); Monocytes % 16.6 %; Neutrophils # 2.8 K/mcL (1.6-8.9); Red Blood Count 2.52 M/mcL (4.19-5.50); Red Cell Distribution Width 15.9 % (11.5-14.5); Segmented Neutrophils % 56.4 %
[2016-10-28 04:03] LABS: Platelet Count 65 K/mcL (140-400)
[2016-10-28 04:18] LABS: Alanine Aminotransferase 71 Units/L (0-55); Albumin 2.2 g/dL (3.5-5.0); Albumin/Globulin Ratio 0.7 (1.1-2.2); Alkaline Phosphatase 176 Units/L (38-126); Aspartate Amino Transferase 82 Units/L (5-34); BUN/Creatinine Ratio 31 (6-26); Blood Urea Nitrogen 24 mg/dL (8-26); Calcium 8.6 mg/dL (8.6-10.8); Carbon Dioxide 24 mEq/L (19-29); Chloride 103 mEq/L (98-109); Globulin 3.3 g/dL (2.4-3.5); Glucose 98 mg/dL (70-99); Osmolality,Calculated 272 (280-300); Potassium 5.2 mEq/L (3.5-4.5); Sodium 129 mEq/L (136-145); Total Protein 5.5 g/dL (6.0-8.3); eGFR For African Americans > 60 (> 60); eGFR For Non-African Americans > 60 (> 60)
[2016-10-28 04:24] LABS: Bilirubin,Total 2.7 mg/dL (0.2-1.2)
[2016-10-28] MEDS: *HR* Heparin 5,000 UNIT/ML VIAL SQ SCH ×2 (06:29→17:02)
--- NOTE | 2016-10-28 08:31 | Internal Med Progress Note ---
Date of Encounter: 10/28/16 Time of Encounter: 08:30 - Assessment and plan (1) Acute encephalopathy Current Visit: Yes Status: Acute (2) Hyponatremia Current Visit: Yes Status: Acute (3) Alcohol intoxication Current Visit: Yes Status: Resolved Qualifiers: Complication of substance-induced condition: uncomplicated Qualified Code(s ): F10.920 - Alcohol use, unspecified with intoxication, uncomplicated (4) Cirrhosis Current Visit: No Status: Chronic Qualifiers: Qualified Code(s): K74.60 - Unspecified cirrhosis of liver (5) Hepatic encephalopathy Current Visit: No Status: Chronic (6) Hyperammonemia Current Visit: Yes Status: Acute (7) DVT prophylaxis Current Visit: Yes Status: Acute - Subjective Interval history: Pt seen and examined. He is less awake this morning and difficult to arouse. He does eventually answer questions with simple yes/no. He denies pain or shortness of breath. Per RN, patient did have a large bowel movement yesterday but none overnight. - Constitutional Vitals: Temp Pulse Resp BP Pulse Ox 97.5 F L 90 15 96/56 95 10/28/16 07:46 10/28/16 07:46 10/28/16 07:46 10/28/16 07:46 10/28/16 07:46 General appearance: Present: disheveled, pleasant, no acute distress, answers questions appropriately - Head Head exam: Present: atraumatic, normocephalic - Eye Eye exam: Present: PERRL, conjuntiva pink, sclera anicteric - Neck Neck exam general surgery: Present: supple, trachea midline. Absent: lymphadenopathy - Respiratory Respiratory exam: Present: CTAB. Absent: accessory muscle use, rales, rhonchi, wheezes - Cardiovascular Cardiovascular exam: Present: RRR, +S1, +S2. Absent: diastolic murmur, gallop, rubs, systolic murmur - GI/Abdominal GI/Abdominal exam: Present: distended, normal bowel sounds, soft, no peritoneal signs. Absent: tenderness - Extremities Exam Extremities exam: Present: warm, radial pulses palpable and symmetrical. Absent : calf tenderness, cyanotic, pedal edema - Neurological Exam Neurological exam: Present: altered. Absent: facial droop, speech deficit - Skin Skin exam: Present: dry, intact Internal Medicine: Result - Labs CBC & Chem 7: 10/28/16 03:45 10/28/16 03:45 Labs: Short CBC 10/28/16 Range/Units 03:45 WBC 4.9 (4.3-11.1) K/mcL Hgb 8.9 L (12.9-16.9) g/dL Hct 25.5 L (37.5-50.1) % Plt Count 65 L (140-400) K/mcL Neutrophils # 2.8 (1.6-8.9) K/mcL BMP 10/28/16 03:45 Sodium 129 L Potassium 5.2 H Chloride 103 Carbon Dioxide 24 BUN 24 Creatinine 0.78 Glucose 98 Calcium 8.6 Liver Function 10/28/16 Range/Units 03:45 Total Bilirubin 2.7 H (0.2-1.2) mg/dL AST 82 H (5-34) Units/L ALT 71 H (0-55) Units/L Alkaline Phosphatase 176 H (38-126) Units/L Albumin 2.2 L (3.5-5.0) g/dL - ABG Interpretation ABG results: PT/INR, D-dimer PT 14.6 Seconds (9.4-12.1) H 10/16/16 13:32 - VTE Documentation of Mechanical Device: Intermittent pneumatic compression device Consult Discharge Plan - Plan Referrals: Zoila Vora MD [Non-Partnered Physician] - 11/04/16 2:15 pm
[2016-10-28] MEDS: Zinc Sulfate 220 MG CAPSULE PO SCH (09:22)
[2016-10-28] MEDS: Multivit/Ca/Min/Fe/FA 1 TAB TABLET PO SCH (09:22)
[2016-10-28] MEDS: lamoTRIgine 100 MG TABLET PO SCH (09:22)
[2016-10-28] MEDS: Folic Acid 1 MG TABLET PO SCH (09:23)
[2016-10-28] MEDS: Thiamine (B-1) 100 MG TABLET PO SCH (09:23)
--- NOTE | 2016-10-28 15:36 | Discharge Summary ---
<Mika Georges - Last Filed: 10/28/16 15:49> Date of Encounter: 10/28/16 Time of Encounter: 15:33 - Discharge Diagnosis (1) Acute encephalopathy Priority: Primary Status: Acute (2) Hyponatremia Priority: Secondary Status: Acute (3) Alcohol intoxication Priority: Secondary Status: Resolved Qualifiers: Complication of substance-induced condition: uncomplicated Qualified Code(s ): F10.920 - Alcohol use, unspecified with intoxication, uncomplicated (4) Cirrhosis Priority: Secondary Status: Chronic Qualifiers: Qualified Code(s): K74.60 - Unspecified cirrhosis of liver (5) Hepatic encephalopathy Priority: Secondary Status: Chronic (6) Hyperammonemia Priority: Secondary Status: Acute (7) DVT prophylaxis Priority: Secondary Status: Acute - Discharge Medications Home Medications: Paliperidone [Paliperidone ER] 6 mg PO QAM 07/25/15 [History] Multivitamin [One Daily Essential] 1 tab PO QAM 10/01/15 [History] Tamsulosin [Flomax] 0.4 mg PO 10/01/15 [History] Thiamine (B-1) [Vitamin B-1] 100 mg PO QAM 10/01/15 [History] Zinc Sulfate 220 mg PO QAM 10/01/15 [History] Rifaximin [Xifaxan] 400 mg PO BID #60 tablet 02/07/16 [Rx] lamoTRIgine [Lamictal] 100 mg PO QAM 02/24/16 [History] Acetaminophen [Tylenol] 325 mg PO Q6HR PRN 10/01/16 [History] Bumetanide [Bumex] 1 mg PO BID 10/01/16 [History] Folic Acid 1 mg PO QAM 10/01/16 [History] Melatonin 5 mg PO HS 10/01/16 [History] Pantoprazole Sodium [Protonix] 40 mg PO BID 10/01/16 [History] Spironolactone [Aldactone] 150 mg PO BID 10/01/16 [History] Tramadol HCl [Ultram] 50 mg PO BID PRN 10/01/16 [History] Lactulose 30 gm PO BID #60 10/03/16 [Rx] Oxycodone HCl [Oxaydo] 5 mg PO Q6H PRN #20 tablet.orl 10/03/16 [Rx] Allergies/Adverse Reactions: No Known Allergies Allergy (Verified 09/14/16 16:04) Date of admission: 10/16/16 18:07 Primary care physician: Marco A Brown MD Consults: 10/19/16 09:15 Consult to Occupational Therapy [CONS] Routine Comment: Evaluate, develop and implement POC Reason for Consult: EVAL FOR ECF Consult to Physical Therapy [CONS] Routine Comment: Evaluate, develop and implement POC Reason for Consult: eval for ECF Discharging clinician: Mika Georges Anticipated date of discharge: 10/28/16 - Patient Status Disposition: Transfer Short-Term Hosp Condition: Fair Functional capacity at discharge: bed bound Overall status at discharge: patient is not back to baseline - Discharge Instructions Follow Up With: Zoila Vora MD [Non-Partnered Physician] - 11/04/16 2:15 pm - Diet and Activity Activity: as per physical therapy Diet: advance to your usual diet Interval History: Pt seen and examined. He is less awake this morning and difficult to arouse. He does eventually answer questions with simple yes/no. He denies pain or shortness of breath. Per RN, patient did have a large bowel movement yesterday but none overnight. Hospital course: Mr. Rivera is a 51 year old male who presented from [facility] with altered mental status. According to records, patient left the penitentiary to walk across the street to the gas station to buy liquor and presented to [place] with alcohol level of 189. He does have cirrhosis and is on the liver transplant list. Patient was very lethargic and minimally responsive and required rectal lactulose in order to achieve goal bowel movements of 2-3 per day. Rifaxmin was increased to 600 BID as well. His mental status was slightly better after he was transferred to step down unit where his ammonia levels improved with constant Lactulose administration. His ammonia levels trended down to 68 yesterday but it increased up to 131 today despite having Lactulose by mouth at 30 mg QID. His mental status waxes and wanes throughout the day, but he is usually better later in the day as opposed to the morning. Patient's sister, his medical POA was at bedside and it was decided that they could use a second opinion and transfer him to [facility], where he received much of his care and have plenty of records for. I personally spoke to the accepting physician at [facility] Dr. Jay. He will be transferred via ambulance and is vitals are stable. - Time Spent with Patient Total time spent providing and/or coordinating discharge services: - Constitutional Vitals: Temp Pulse Resp BP Pulse Ox 97.4 F L 96 12 106/66 95 10/28/16 12:18 10/28/16 12:18 10/28/16 12:18 10/28/16 12:18 10/28/16 07:46 General appearance: Present: disheveled, pleasant, no acute distress, answers questions appropriately - Head Head exam: Present: atraumatic, normocephalic - Eye Eye exam: Present: PERRL, conjuntiva pink, sclera anicteric - Neck Neck exam general surgery: Present: supple, trachea midline. Absent: lymphadenopathy - Respiratory Respiratory exam: Present: CTAB. Absent: accessory muscle use, rales, rhonchi, wheezes - Cardiovascular Cardiovascular exam: Present: RRR, +S1, +S2. Absent: diastolic murmur, gallop, rubs, systolic murmur - GI/Abdominal GI/Abdominal exam: Present: distended, normal bowel sounds, soft, no peritoneal signs. Absent: tenderness - Extremities Exam Extremities exam: Present: warm, radial pulses palpable and symmetrical. Absent : calf tenderness, cyanotic, pedal edema - Neurological Exam Neurological exam: Present: altered, no focal deficits. Absent: oriented X3, facial droop, speech deficit - Skin Skin exam: Present: dry, intact - VTE Documentation of Mechanical Device: Intermittent pneumatic compression device <Kevyn Culp P - Last Filed: 10/28/16 18:03> Date of Encounter: 10/28/16 Date of admission: 10/16/16 18:07 Primary care physician: Marco A Brown MD Consults: 10/19/16 09:15 Consult to Occupational Therapy [CONS] Routine Comment: Evaluate, develop and implement POC Reason for Consult: EVAL FOR ECF Consult to Physical Therapy [CONS] Routine Comment: Evaluate, develop and implement POC Reason for Consult: eval for ECF Hospital course: Mr. Rivera is a 51 year old male - Time Spent with Patient Total time spent providing and/or coordinating discharge services: - Constitutional Vitals: Temp Pulse Resp BP Pulse Ox 97.4 F L 96 12 106/66 95 10/28/16 12:18 10/28/16 12:18 10/28/16 12:18 10/28/16 12:18 10/28/16 07:46 - Attending Attestation I examined this patient and my medical decision-making was reviewed with the Resident Physician. I agree with the documented findings, disposition and treatment plan as described except to the extent set forth below.
[2016-10-28 20:36] VITALS: BP 95/58
[2016-10-28] MEDS: Melatonin 3 MG TABLET PO SCH (21:31)
== END 2016-10-28 23:23 | disposition short-term general hospital (02) | DRG 441 ==
LOC: 2ANU 13:07 → EMEROO 13:07 → 2ANU 17:52 → SUATTDRO 18:07 → 2NNU 10-22 17:36 → 2ANU 10-25 18:17
PROVIDERS: ADMIT Nurse Practitioner Family; ATTEND Internal Medicine

== ENCOUNTER 2017-02-26 20:25 | Inpatient (IN) ==
[2017-02-27] MEDS ORDERED: traMADol 50 MG TABLET PO PRN (01:41)
[2017-02-27] MEDS ORDERED: Naloxone 0.4 MG/ML INJ IVP PRN (01:43)
[2017-02-27] MEDS ORDERED: Ondansetron 4 MG/2 ML VIAL IVP PRN (01:43)
[2017-02-27] MEDS ORDERED: 0.9 % Sodium Chloride 1,000 ML IVC SCH (01:45)
[2017-02-27] MEDS ORDERED: Albumin 25% 25gram/100mL 25 GM/100 ML IV.SOLN IVPB ONE (01:48)
--- NOTE | 2017-02-27 01:54 | Internal Med History&Physical ---
Date of Encounter: 02/27/17 Time of Encounter: 01:51 Assessment and Plan (1) Decompensated hepatic cirrhosis Current visit: Yes Status: Acute active alcohol use preclude liver txp d/w poor prognosis with patient. Agree to DNRCCA/DNI Wishes to discuss with hospice about DNRCC options consult gi and hospice to provide further guidance, education and understanding (2) Sepsis Current visit: Yes Status: Acute with abdo symptoms, concern for abdo sepsis ? possible include SBP, PNA ? consult IR for diagnostic/therapeutic tap Started vanc, rocephin IV now to avoid delays further course pending hospice eval and discussion Qualifiers: Sepsis type: sepsis due to unspecified organism Qualified Code(s): A41.9 - Sepsis, unspecified organism (3) Alcoholism Current visit: Yes Status: Acute no active withdrawal at current CIWA as indicated - otherwise hold benzo if mental status decrease Internal Medicine - H&P: HPI Chief complaint: Abdo pain History of present illness: Mr. Ortiz is a 51 year old male with ESLD 2/2 alcoholism who presents with stomach pain. He was a transfer from [facility] ED after symptoms of SOB reported per documentation. He was recently d/c from [facility] earlier this week where he reported to have received paracentesis and antibiotics for possible PNA. He is reportedly not on the transplant list due to alcoholism. I discussed with ED at [facility] who reported that patient would prefer to be admitted to [facility] for symptom control and understands that we are not a transplant center. In terms of his presenting symptom, he reported progressive abdominal pain and distension since discharged, 10/22, sharp, all over. He wishes to be dnrcca/dni and we discussed having hospice speak with him. He knows that his life expectancy is likely limited. He last drank alcohol this morning in an attempt to curb his pain XR/XR chest 1V portable IMPRESSION: Progressive right middle/ lower lobe atelectasis and/or pneumonia with associated parapneumonic effusion. Past Med Surg Social Fam HX - Past Medical History Medical history: arthritis, cirrhosis, CHF, COPD, GERD, hyperlipidemia, hypertension, liver disease, osteoporosis, seizures Psychiatric history: depression, schizophrenia - Past Surgical History Surgical History: orthopedic, other - Social History Smoking Status: Never smoker Smokeless Tobacco Status: No Alcohol use: heavy, recent Drug use: none - Family History Mother Family Member Ethnicity: Non- Living Status: Hx Family Cardiac Disorders: Yes Hx Family Respiratory Disorders: Yes Hx Family Cancer: No Hx Family GI Disorders: No Hx Family Endocrine Disorder: No Hx Family Neuromuscular Disorders: Yes (Polio, CVA) Hx Family Neurologic Disorders: No Hx Family HEENT Disorders: No Hx Family Autoimmune Disorders: No Father Family Member Ethnicity: Non- Living Status: Hx Family Cardiac Disorders: No Hx Family Respiratory Disorders: No Hx Family Cancer: No Hx Family GI Disorders: No Hx Family Genitourinary Disorders: No Hx Family Endocrine Disorder: No Hx Family Musculoskeletal Disorders: No Hx Family Neuromuscular Disorders: No Hx Family Neurologic Disorders: No Hx Family HEENT Disorders: No Hx Family Autoimmune Disorders: No Sister Family Member Ethnicity: Non- Living Status: Still Living Hx Family Cancer: Yes (thyroid cancer) Hx Family Endocrine Disorder: Yes Internal Medicine - H&P: Meds Paliperidone [Paliperidone ER] 6 mg PO QAM 07/25/15 [History] Multivitamin [One Daily Essential] 1 tab PO QAM 10/01/15 [History] Tamsulosin [Flomax] 0.4 mg PO HS 10/01/15 [History] Thiamine (B-1) [Vitamin B-1] 100 mg PO QAM 10/01/15 [History] Zinc Sulfate 220 mg PO QAM 10/01/15 [History] lamoTRIgine [Lamictal] 100 mg PO QAM 02/24/16 [History] Acetaminophen [Tylenol] 325 mg PO Q6HR PRN 10/01/16 [History] Folic Acid 1 mg PO QAM 10/01/16 [History] Melatonin 5 mg PO HS 10/01/16 [History] Pantoprazole Sodium [Protonix] 40 mg PO BID 10/01/16 [History] Spironolactone [Aldactone] 150 mg PO BID 10/01/16 [History] Tramadol HCl [Ultram] 50 mg PO BID PRN 10/01/16 [History] Lactulose 30 gm PO BID #60 10/03/16 [Rx] Furosemide [Lasix] 40 mg PO DAILY 02/12/17 [History] Rifaximin [Xifaxan] 550 mg PO BID 02/12/17 [History] Sucralfate [Carafate] 1 gm PO QID 02/12/17 [History] 3 Allergy/AdvReac Type Severity Reaction Status Date / Time No Known Allergies Allergy Verified 09/14/16 16:04 All Systems PM: A 10-system review of systems was performed and is negative for pertinent findings except as documented above in the HPI. Review of systems: ROS 14 point review of systems reviewed as best as possible given presentation. Pertinent positive or negative as per HPI or otherwise reviewed as negative - Constitutional Vitals: Temp Pulse Resp BP Pulse Ox 97.5 F L 90 17 103/52 98 02/26/17 23:40 02/26/17 23:40 02/26/17 23:40 02/26/17 23:40 02/26/17 23:40 Exam: General - AAO x 3 Psych - Appropriate affect/speech. No agitation Eyes - MARICARMEN. Eye lids intact. Scleral icterus Heart - Sinus. RRR. S1 and S2 present. No added HS/murmurs appreciated. No elevated JVD appreciated. Lung - Adequate air entry b/l, Bibasal crackles, no wheezes appreciated GI - Diffuse tenderness of abdomen. Massive ascites. BS+ - No CVA/suprapubic tenderness or palpable bladder distension Skin - Intact. No rash/petechiae/ecchymosis. Warm extremities. +1 b/l edema
[2017-02-27] MEDS ORDERED: Vancomycin 0 MG in D5% in Water 250 ML IVPB SCH (02:00)
[2017-02-27] MEDS ORDERED: cefTRIAXone 2,000 MG in Water for inj. (sterile) 20 ML IVP SCH (02:00)
[2017-02-27] MEDS: *HR* Morphine 2 MG/ML SYRINGE IVP PRN ×3 (02:48→12:01)
[2017-02-27] MEDS: Vancomycin 1,250 MG in D5% in Water 250 ML IVPB SCH ×2 (03:04→15:07)
[2017-02-27] MEDS ORDERED: Thiamine (B-1) 100 MG TABLET PO SCH (09:00)
[2017-02-27] MEDS ORDERED: Folic Acid 1 MG TABLET PO SCH (09:00)
[2017-02-27] MEDS ORDERED: Lactulose Oral Soln 20 GM/30 ML UDC PO SCH (09:00)
[2017-02-27] MEDS: lamoTRIgine 100 MG TABLET PO SCH (09:42)
[2017-02-27] MEDS: Sucralfate 1 GM TABLET PO SCH ×3 (09:43→17:02)
[2017-02-27] MEDS ORDERED: *HR* HYDROmorphone 2 MG/ML SYRINGE IVP PRN (13:22)
[2017-02-27] MEDS ORDERED: *HR* HYDROmorphone (PF) 1 MG/ML SYRINGE IVP PRN ×2 (13:22→16:35)
--- NOTE | 2017-02-27 13:26 | Internal Med Progress Note ---
Date of Encounter: 02/27/17 Time of Encounter: 13:24 - Assessment and plan (1) Pneumonia Current Visit: Yes Status: Acute Assessment and plan: Currently on ceftriaxone and vancomycin Chest x-ray showed: Progressive right middle/ lower lobe atelectasis and/or pneumonia with associated parapneumonic effusion. May discontinue ceftriaxone and vancomycin as the patient prefers to be on full comfort measures Qualifiers: Pneumonia type: due to unspecified organism Laterality: right Lung location: lower lobe of lung Qualified Code(s): J18.1 - Lobar pneumonia, unspecified organism (2) Decompensated hepatic cirrhosis Current Visit: No Status: Chronic Assessment and plan: Acute liver failure Not on transplant list due to alcohol consumption Very poor prognosis, palliative care consulted. The patient prefers not to have further treatment to pursue comfort measures only Wishes to be a DNR CC arrest Dilaudid and Ativan as needed will be provided (3) Coagulopathy Current Visit: No Status: Chronic Assessment and plan: Secondary to cirrhosis (4) Esophageal varices in cirrhosis Current Visit: No Status: Acute (5) Cirrhosis Current Visit: No Status: Chronic Qualifiers: Hepatic cirrhosis type: alcoholic cirrhosis Ascites presence: without ascites Qualified Code(s): K70.30 - Alcoholic cirrhosis of liver without ascites (6) Pleural effusion Current Visit: No Status: Acute (7) Goals of care, counseling/discussion Current Visit: No Status: Acute Assessment and plan: Full comfort measures and no further treatment (8) Abdominal pain Current Visit: No Status: Acute Assessment and plan: Secondary to severe ascites Underwent paracenteses, 6 L removed, lab tests sent Qualifiers: Abdominal location: generalized Qualified Code(s): R10.84 - Generalized abdominal pain (9) Liver failure Current Visit: No Status: Chronic Qualifiers: Liver failure chronicity: chronic Hepatic coma status: without hepatic coma Qualified Code(s): K72.10 - Chronic hepatic failure without coma (10) Thrombocytopenia Current Visit: No Status: Chronic (11) Pleural effusion associated with hepatic disorder Current Visit: No Status: Chronic (12) Cirrhosis of liver with ascites Current Visit: No Status: Acute Qualifiers: Hepatic cirrhosis type: alcoholic cirrhosis Qualified Code(s): K70.31 - Alcoholic cirrhosis of liver with ascites - Constitutional Vitals: Temp Pulse Resp BP Pulse Ox 97.7 F 94 20 109/56 100 02/27/17 11:26 02/27/17 11:26 02/27/17 11:26 02/27/17 11:26 02/27/17 11:26 General appearance: Present: A&O X 3 - Head Head exam: Present: atraumatic, normocephalic - Eye Eye exam: Present: PERRL, scleral icterus, conjuntiva pink. Absent: sclera anicteric Pupils: Present: PERRL Additional comments: Icteric - Neck Neck exam general surgery: Present: supple, trachea midline. Absent: lymphadenopathy - Respiratory Respiratory exam: Present: CTAB. Absent: accessory muscle use, rales, rhonchi, wheezes - Cardiovascular Cardiovascular exam: Present: RRR, +S1, +S2. Absent: diastolic murmur, gallop, rubs, systolic murmur - GI/Abdominal GI/Abdominal exam: Present: distended (Ascites), normal bowel sounds, soft, no peritoneal signs. Absent: tenderness - Extremities Exam Extremities exam: Present: pedal edema (+2 pitting edema in both lower extremities), warm, radial pulses palpable and symmetrical. Absent: calf tenderness, cyanotic - Neurological Exam Neurological exam: Present: CN II-XII intact, oriented X3, no focal deficits. Absent: pronater drift, facial droop, speech deficit - Skin Skin exam: Present: dry, intact Consult Discharge Plan - Plan Referrals: Zoila Vora MD [Primary Care Provider] -
--- NOTE | 2017-02-27 14:15 | Palliative - Consult Note ---
Date of Encounter: 02/27/17 Time of Encounter: 14:10 - Assessment and Plan (1) Abdominal pain Current Visit: No Status: Acute Assessment and plan: He was previously on IV Morphine, which was not effective enough and has been ordered Hydromorphone this am per hospitalist. Will monitor Qualifiers: Abdominal location: generalized Qualified Code(s): R10.84 - Generalized abdominal pain (2) Decompensated hepatic cirrhosis Current Visit: No Status: Chronic (3) Pneumonia Current Visit: Yes Status: Acute Assessment and plan: Was recieving antibiotics, however, pt has decided that he desires comfort care only, and does not desire to prolong his disease process with treating infection. I believe the hospitalist will be stopping his antibiotics. Qualifiers: Pneumonia type: due to unspecified organism Laterality: right Lung location: lower lobe of lung Qualified Code(s): J18.1 - Lobar pneumonia, unspecified organism (4) Counseling regarding advanced care planning and goals of care Current Visit: Yes Status: Acute Assessment and plan: Multiple attempts to contact family today. He lives with nephew Tera ( [phone]), who has month old infant and other children. Pt sister, Linda, is his medical POA that was completed here in 2016. Her telephone number on the POA is incorrect. Correct number for her is [phone]. Was able to discuss via phone with her, pt poor health condition, and his desire for comfort care. She was distraught over phone, and states she will be coming in to hospital later today. I doubt that they will be able to continue care for him at Tera's residence, and discussed he may need care home placement. He is hospice eligible for liver disease (INR 2.6/albumin 2.3/ refractory ascites. He is listed in out system as Medicare/Medicaid - this will need verified on Wednesday to see if transition to [facility] with hospice care is covered. D/W Dr Almaraz. Will continue to follow closely. (5) Cirrhosis of liver with ascites Current Visit: No Status: Acute Qualifiers: Hepatic cirrhosis type: alcoholic cirrhosis Qualified Code(s): K70.31 - Alcoholic cirrhosis of liver with ascites Palliative-CN HPI - Data of Consult Consult date: 02/27/17 Requesting Physician: Young Amaro Primary Care Provider: Zoila Vora MD - Consult Narrative History of present illness: Mr. Ortiz is a 51 year old male with a history of end stage liver failure r/t alcoholic cirrhosis, who was recently sent home from [facility] after he received paracentesis and antibiotics for pneumonia. Patient is not a transplant candidate. He had increasing abd pain at home, and reportedly did drink alcohol to try and relieve the pain and pressure. Accordingly to patient, he had over 6 liters removed with paracentesis yesterday. His xray still show pneumonia, despite treatment at [facility] and antibiotics. He claims he has been compliant with his lactulose at home. He lives with a nephew (Tera) and his , they have month old baby and other children. Patient's sister Linda is POA. At my visit, he is drowsy, but awakens easily and c/o abd pain. States he just "wants to be comfortable" and knows there is little that can be done regarding his condition. He is jaundiced, abd distended, and has lower extremity edema. C/o poor appetite and asking for ensure. Urine is drk brown. CC: Young Amaro Past Med Surg Social Fam HX - Past Medical History Medical history: arthritis, cirrhosis, CHF, COPD, GERD, hyperlipidemia, hypertension, liver disease, osteoporosis, seizures Psychiatric history: depression, schizophrenia - Past Surgical History Surgical History: orthopedic, other - Social History Smoking Status: Never smoker Smokeless Tobacco Status: No Alcohol use: heavy, recent Drug use: none - Family History Mother Family Member Ethnicity: Non- Living Status: Hx Family Cardiac Disorders: Yes Hx Family Respiratory Disorders: Yes Hx Family Cancer: No Hx Family GI Disorders: No Hx Family Endocrine Disorder: No Hx Family Neuromuscular Disorders: Yes (Polio, CVA) Hx Family Neurologic Disorders: No Hx Family HEENT Disorders: No Hx Family Autoimmune Disorders: No Father Family Member Ethnicity: Non- Living Status: Hx Family Cardiac Disorders: No Hx Family Respiratory Disorders: No Hx Family Cancer: No Hx Family GI Disorders: No Hx Family Genitourinary Disorders: No Hx Family Endocrine Disorder: No Hx Family Musculoskeletal Disorders: No Hx Family Neuromuscular Disorders: No Hx Family Neurologic Disorders: No Hx Family HEENT Disorders: No Hx Family Autoimmune Disorders: No Sister Family Member Ethnicity: Non- Living Status: Still Living Hx Family Cancer: Yes (thyroid cancer) Hx Family Endocrine Disorder: Yes Medications and Allergies Paliperidone [Paliperidone ER] 6 mg PO QAM 07/25/15 [History] Multivitamin [One Daily Essential] 1 tab PO QAM 10/01/15 [History] Tamsulosin [Flomax] 0.4 mg PO HS 10/01/15 [History] Thiamine (B-1) [Vitamin B-1] 100 mg PO QAM 10/01/15 [History] Zinc Sulfate 220 mg PO QAM 10/01/15 [History] lamoTRIgine [Lamictal] 100 mg PO QAM 02/24/16 [History] Acetaminophen [Tylenol] 325 mg PO Q6HR PRN 10/01/16 [History] Folic Acid 1 mg PO QAM 10/01/16 [History] Melatonin 5 mg PO HS 10/01/16 [History] Pantoprazole Sodium [Protonix] 40 mg PO BID 10/01/16 [History] Spironolactone [Aldactone] 100 mg PO BID 10/01/16 [History] Lactulose 30 gm PO BID #60 10/03/16 [Rx] Furosemide [Lasix] 40 mg PO DAILY 02/12/17 [History] Rifaximin [Xifaxan] 550 mg PO BID 02/12/17 [History] Sucralfate [Carafate] 1 gm PO QID 02/12/17 [History] 3 Allergy/AdvReac Type Severity Reaction Status Date / Time No Known Allergies Allergy Verified 09/14/16 16:04 All systems: reviewed and no additional remarkable complaints except as stated ( abd pain and distention, weakness, poor appetite) Palliative Care-Exam - Constitutional Vitals: Temp Pulse Resp BP Pulse Ox 97.7 F 94 20 109/56 100 02/27/17 11:26 02/27/17 11:26 02/27/17 11:26 02/27/17 11:26 02/27/17 11:26 - Head Head Exam: Present: normal inspection, normocephalic - Eye Eye exam: Present: scleral icterus Pupils: Present: PERRL - Respiratory Respiratory exam: Present: decreased breath sounds, CTAB - Cardiovascular Cardiovascular exam: Present: +S1, +S2 - GI/Abdominal Exam GI/Abdominal exam: Present: diminished bowel sounds, distended, firm - Additional comments: Voiding dk brown urine - Extremities Exam Additional comments: 2+ edema bilateral lower extremities - Neurological Exam Neurological exam: Present: alert, oriented X3, strengths equal and symetr throughout Additional comments: generalized weakness - Psychiatric Psychiatric exam: Present: flat affect - Skin Skin exam: Present: dry, warm Additional comments: Jaundiced Consult Discharge Plan - Plan Referrals: Zoila Vora MD [Primary Care Provider] - Palliative Quality Palliative Quality: Screen for Code Status: Yes, Screen for Goals of Care: Yes, Screen for Pain: Yes, If Pain Regimen Started, Initiate Bowel Regimen: NA, Screen for Nausea/Vomitting: Yes Code Status: 02/27/17 01:43 Resuscitation Status: Active [RES] Routine Comment: Resuscitation Status: [id number] 02/27/17 13:22 Resuscitation Status: Active [RES] Routine Comment: Resuscitation Status: DNR-Comfort Care
[2017-02-27] MEDS ORDERED: Aminoglycoside Consult 1 EACH MC ONE (15:30)
[2017-02-27] MEDS: *HR* HYDROmorphone (PF) 1 MG/ML SYRINGE IVP PRN ×2 (17:06→19:13)
[2017-02-27] MEDS: *HR* LORazepam 2 MG/ML VIAL IVP PRN (18:34)
[2017-02-27] MEDS ORDERED: *HR* FentaNYL PATCH 50 MCG PATCH TD SCH (20:00)
[2017-02-27] MEDS ORDERED: Melatonin 3 MG TABLET PO SCH (21:00)
[2017-02-28 07:26] VITALS: BP 102/40
--- NOTE | 2017-02-28 08:41 | Internal Med Progress Note ---
Date of Encounter: 02/28/17 Time of Encounter: 08:39 - Assessment and plan (1) Pneumonia Current Visit: Yes Status: Acute Assessment and plan: was on ceftriaxone and vancomycin The patient and the family have agreed to continue comfort measures only. We will discontinue antibiotics and other medications. Increase dose of Dilaudid, continue Ativan. Fentanyl patch 50 g started on February 27July go on hospice if possible Chest x-ray showed: Progressive right middle/ lower lobe atelectasis and/or pneumonia with associated parapneumonic effusion. full comfort measures Qualifiers: Pneumonia type: due to unspecified organism Laterality: right Lung location: lower lobe of lung Qualified Code(s): J18.1 - Lobar pneumonia, unspecified organism (2) Decompensated hepatic cirrhosis Current Visit: No Status: Chronic Assessment and plan: Acute liver failure Not on transplant list due to alcohol consumption Very poor prognosis, palliative care consulted. The patient prefers not to have further treatment and to pursue comfort measures only Wished to be a DNR CC Dilaudid and Ativan as needed will be provided (3) Coagulopathy Current Visit: No Status: Chronic Assessment and plan: Secondary to cirrhosis (4) Esophageal varices in cirrhosis Current Visit: No Status: Acute (5) Cirrhosis Current Visit: No Status: Chronic Qualifiers: Hepatic cirrhosis type: alcoholic cirrhosis Ascites presence: without ascites Qualified Code(s): K70.30 - Alcoholic cirrhosis of liver without ascites (6) Pleural effusion Current Visit: No Status: Acute (7) Goals of care, counseling/discussion Current Visit: No Status: Acute Assessment and plan: Full comfort measures and no further treatment (8) Abdominal pain Current Visit: No Status: Acute Assessment and plan: Secondary to severe ascites Underwent paracenteses, 6 L removed, lab tests were sent but were not reported Qualifiers: Abdominal location: generalized Qualified Code(s): R10.84 - Generalized abdominal pain (9) Liver failure Current Visit: No Status: Chronic Qualifiers: Liver failure chronicity: chronic Hepatic coma status: without hepatic coma Qualified Code(s): K72.10 - Chronic hepatic failure without coma (10) Thrombocytopenia Current Visit: No Status: Chronic (11) Pleural effusion associated with hepatic disorder Current Visit: No Status: Chronic (12) Cirrhosis of liver with ascites Current Visit: No Status: Acute Qualifiers: Hepatic cirrhosis type: alcoholic cirrhosis Qualified Code(s): K70.31 - Alcoholic cirrhosis of liver with ascites - Subjective Interval history: Very drowsy, unable to complete review of systems due to lethargy - Constitutional Vitals: Temp Pulse Resp BP Pulse Ox 98.0 F 96 15 102/40 94 02/28/17 07:25 02/28/17 07:25 02/28/17 07:25 02/28/17 07:25 02/28/17 07:25 General appearance: Present: A&O X 1 Exam: - Head Head exam: Present: atraumatic, normocephalic - Eye Eye exam: Present: PERRL, scleral icterus, conjuntiva pink. Absent: sclera anicteric Pupils: Present: PERRL Additional comments: Icteric - Neck Neck exam general surgery: Present: supple, trachea midline. Absent: lymphadenopathy - Respiratory Respiratory exam: Present: CTAB. Absent: accessory muscle use, rales, rhonchi, wheezes - Cardiovascular Cardiovascular exam: Present: RRR, +S1, +S2. Absent: diastolic murmur, gallop, rubs, systolic murmur - GI/Abdominal GI/Abdominal exam: Present: distended (Ascites), normal bowel sounds, soft, no peritoneal signs. Absent: tenderness - Extremities Exam Extremities exam: Present: pedal edema (+2 pitting edema in both lower extremities), warm, radial pulses palpable and symmetrical. Absent: calf tenderness, cyanotic - Neurological Exam Neurological exam: Present: CN II-XII intact, oriented X3, no focal deficits. Absent: pronater drift, facial droop, speech deficit - Skin Skin exam: Present: dry, intact Consult Discharge Plan - Plan Referrals: Zoila Vora MD [Primary Care Provider] -
[2017-02-28] MEDS: lamoTRIgine 100 MG TABLET PO SCH (09:10)
[2017-02-28] MEDS: *HR* HYDROmorphone (PF) 1 MG/ML SYRINGE IVP PRN ×2 (09:10→13:34)
--- NOTE | 2017-02-28 10:42 | Palliative Progress Note ---
Date of Encounter: 02/28/17 Time of Encounter: 10:30 - Assessment and plan (1) Abdominal pain Current Visit: No Status: Acute Assessment and plan: He was transitioned to Fentanyl 50mcg patch and Hydromorphone 2mg per hospitalist. Has not utilized breakthrough medication since last pm. will monitor. He did not have any opioids listed on home med list. May need patch decreased some. Qualifiers: Abdominal location: generalized Qualified Code(s): R10.84 - Generalized abdominal pain (2) Decompensated hepatic cirrhosis Current Visit: No Status: Chronic (3) Pneumonia Current Visit: Yes Status: Acute Qualifiers: Pneumonia type: due to unspecified organism Laterality: right Lung location: lower lobe of lung Qualified Code(s): J18.1 - Lobar pneumonia, unspecified organism (4) Counseling regarding advanced care planning and goals of care Current Visit: Yes Status: Acute Assessment and plan: Will be meeting with sister (MARY) this afternoon to discuss hospice care. I am unsure of his social situation, but doubt he will be able to be cared for at home. Will f/u (5) Cirrhosis of liver with ascites Current Visit: No Status: Acute Qualifiers: Hepatic cirrhosis type: alcoholic cirrhosis Qualified Code(s): K70.31 - Alcoholic cirrhosis of liver with ascites - Time Spent With Patient Total time spent is greater than 50% in coordination of care (as documented) at patient's floor/unit and/or counseling patient: - Subjective Interval history: Patient lethargic this am. Will awaken to answer few questions, then falls back to sleep. Does say he is comfortable. Friend at bedside. - Constitutional Vitals: Abnormal lab results POC Glucose 142 (58-89) H 02/27/17 15:42 General appearance: Present: no acute distress - Respiratory Respiratory exam: Present: decreased breath sounds, CTAB - Cardiovascular Cardiovascular exam: Present: +S1, +S2 - GI/Abdominal GI/Abdominal exam: Present: distended, firm, normal bowel sounds - Additional comments: Urine dk brown - Extremities Exam Additional comments: 2-3+ edema bilateral lower extremities - Neurological Exam Additional comments: Lethargic this am - Skin Additional comments: Jaundiced, warm and dry Palliative Quality Palliative Quality: Screen for Code Status: Yes, Screen for Goals of Care: Yes, Screen for Pain: Yes, If Pain Regimen Started, Initiate Bowel Regimen: NA, Screen for Nausea/Vomitting: Yes Code Status: 02/27/17 01:43 Resuscitation Status: Active [RES] Routine Comment: Resuscitation Status: [id number] 02/27/17 13:22 Resuscitation Status: Active [RES] Routine Comment: Resuscitation Status: DNR-Comfort Care - Labs Labs: Laboratory Results - last 24 hr 02/27/17 02/27/17 02/27/17 07:15 11:30 15:42 POC Glucose 89 89 142 H Consult Discharge Plan - Plan Referrals: Zoila Vora MD [Primary Care Provider] -
--- NOTE | 2017-02-28 13:36 | Discharge Summary ---
Date of Encounter: 02/28/17 Time of Encounter: 13:34 - Discharge Diagnosis (1) Pneumonia Priority: Primary Status: Acute Comments: was on ceftriaxone and vancomycin The patient and the family have agreed to continue comfort measures only. We will discontinue antibiotics and other medications. Increase dose of Dilaudid, continue Ativan. Fentanyl patch 50 g started on February 27July go on hospice if possible Chest x-ray showed: Progressive right middle/ lower lobe atelectasis and/or pneumonia with associated parapneumonic effusion. full comfort measures Transfer the patient under the care of Dr. Arguello Qualifiers: Pneumonia type: due to unspecified organism Laterality: right Lung location: lower lobe of lung Qualified Code(s): J18.1 - Lobar pneumonia, unspecified organism (2) Decompensated hepatic cirrhosis Priority: Primary Status: Chronic Comments: Acute liver failure Not on transplant list due to alcohol consumption Very poor prognosis, palliative care consulted. The patient prefers not to have further treatment and to pursue comfort measures only Wished to be a DNR CC Dilaudid and Ativan as needed will be provided (3) Coagulopathy Priority: Secondary Status: Chronic (4) Esophageal varices in cirrhosis Priority: Secondary Status: Acute (5) Cirrhosis Priority: Secondary Status: Chronic Qualifiers: Hepatic cirrhosis type: alcoholic cirrhosis Ascites presence: without ascites Qualified Code(s): K70.30 - Alcoholic cirrhosis of liver without ascites (6) Pleural effusion Priority: Secondary Status: Acute (7) Goals of care, counseling/discussion Priority: Secondary Status: Acute (8) Abdominal pain Priority: Secondary Status: Acute Comments: Secondary to severe ascites Underwent paracenteses, 6 L removed, lab tests were sent but were not reported Qualifiers: Abdominal location: generalized Qualified Code(s): R10.84 - Generalized abdominal pain (9) Liver failure Priority: Primary Status: Chronic Qualifiers: Liver failure chronicity: chronic Hepatic coma status: without hepatic coma Qualified Code(s): K72.10 - Chronic hepatic failure without coma (10) Thrombocytopenia Priority: Secondary Status: Chronic (11) Pleural effusion associated with hepatic disorder Priority: Secondary Status: Chronic (12) Cirrhosis of liver with ascites Priority: Secondary Status: Acute Qualifiers: Hepatic cirrhosis type: alcoholic cirrhosis Qualified Code(s): K70.31 - Alcoholic cirrhosis of liver with ascites - Discharge Medications Home Medications: Paliperidone [Paliperidone ER] 6 mg PO QAM 07/25/15 [History] Multivitamin [One Daily Essential] 1 tab PO QAM 10/01/15 [History] Tamsulosin [Flomax] 0.4 mg PO HS 10/01/15 [History] Thiamine (B-1) [Vitamin B-1] 100 mg PO QAM 10/01/15 [History] Zinc Sulfate 220 mg PO QAM 10/01/15 [History] lamoTRIgine [Lamictal] 100 mg PO QAM 02/24/16 [History] Acetaminophen [Tylenol] 325 mg PO Q6HR PRN 10/01/16 [History] Folic Acid 1 mg PO QAM 10/01/16 [History] Melatonin 5 mg PO HS 10/01/16 [History] Pantoprazole Sodium [Protonix] 40 mg PO BID 10/01/16 [History] Spironolactone [Aldactone] 100 mg PO BID 10/01/16 [History] Lactulose 30 gm PO BID #60 10/03/16 [Rx] Furosemide [Lasix] 40 mg PO DAILY 02/12/17 [History] Rifaximin [Xifaxan] 550 mg PO BID 02/12/17 [History] Sucralfate [Carafate] 1 gm PO QID 02/12/17 [History] FentaNYL PATCH [Duragesic] 50 mcg TD Q72H patch.td72 02/28/17 [Rx] HYDROmorphone (PF) [Dilaudid] 1 mg IVP Q2H PRN syringe 02/28/17 [Rx] HYDROmorphone (PF) [Dilaudid] 2 mg IVP Q2H PRN syringe 02/28/17 [Rx] LORazepam [Ativan] 1 mg IVP Q2HR PRN vial 02/28/17 [Rx] Allergies/Adverse Reactions: 3 Allergy/AdvReac Type Severity Reaction Status Date / Time No Known Allergies Allergy Verified 09/14/16 16:04 Procedures/tests Complete & Pending: Procedures Performed prior 72 hours Category Date Time Status IR paracentesis ultrasound [IR] Routine IR 02/27/17 01:47 Taken Date of admission: 02/27/17 01:43 Primary care physician: Zoila Vora MD Consults: 02/27/17 01:46 Consult to Gastroenterology [CONS] Routine Consulting Provider: Gastroenterology Jody Reason for Consult: ESLD decompensated Call Completed: No Consult to Palliative Care [CONS] Routine Comment: Consulting Provider: Palliative Care Jody Reason for Consult: ESLD hospice discussion Call Completed: No 02/27/17 01:48 Consult to Interventional Radiology [CONS] Routine Consulting Provider: Radiology Interventional Cols Reason for Consult: therapeutic and diagnostic para Call Completed: No - Patient Status Disposition: Hospice - Medical Facility - Discharge Instructions Follow Up With: Zoila Vora MD [Primary Care Provider] - - Diet and Activity Diet: regular diet Hospital course: Mr. 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 He was a transfer from [facility] ED after symptoms of SOB reported per documentation. He was recently was d/c from [facility] earlier this week where he reported to have received paracentesis and antibiotics for possible PNA. He is reportedly not on the transplant list due to alcoholism. I discussed with ED at [facility] who reported that patient would prefer to be admitted to [place] for symptom control and understands that we are not a transplant center. In terms of his presenting symptom, he reported progressive abdominal pain and distension since discharged, 10/22, sharp, all over. He last drank alcohol this morning in an attempt to curb his pain Chest x-ray showed:Progressive right middle/ lower lobe atelectasis and/or pneumonia with associated parapneumonic effusion. She was started on antibiotics ceftriaxone and vancomycin. Also underwent paracenteses and 6 L were removed. The patient decided to become a DNR CC, stop all treatment. Palliative care service was consulted, family was contacted. The patient will be discharged under Dr. Arguello's service to continue inpatient hospice . - Time Spent with Patient Total time spent providing and/or coordinating discharge services: Greater than 30 minutes (40 min) - Constitutional Vitals: Temp Pulse Resp BP Pulse Ox 98.0 F 96 15 102/40 94 02/28/17 07:25 02/28/17 07:25 02/28/17 07:25 02/28/17 07:25 02/28/17 07:25 General appearance: Present: A&O X 1 Exam: - Head Head exam: Present: atraumatic, normocephalic - Eye Eye exam: Present: PERRL, scleral icterus, conjuntiva pink. Absent: sclera anicteric Pupils: Present: PERRL Additional comments: Icteric - Neck Neck exam general surgery: Present: supple, trachea midline. Absent: lymphadenopathy - Respiratory Respiratory exam: Present: CTAB. Absent: accessory muscle use, rales, rhonchi, wheezes - Cardiovascular Cardiovascular exam: Present: RRR, +S1, +S2. Absent: diastolic murmur, gallop, rubs, systolic murmur - GI/Abdominal GI/Abdominal exam: Present: distended (Ascites), normal bowel sounds, soft, no peritoneal signs. Absent: tenderness - Extremities Exam Extremities exam: Present: pedal edema (+2 pitting edema in both lower extremities), warm, radial pulses palpable and symmetrical. Absent: calf tenderness, cyanotic - Neurological Exam Neurological exam: Present: CN II-XII intact, oriented X3, no focal deficits. Absent: pronater drift, facial droop, speech deficit - Skin Skin exam: Present: dry, intact
[2017-02-28] MEDS: *HR* LORazepam 2 MG/ML VIAL IVP PRN (15:20)
[2017-02-28 15:36] LABS: LDH,Peritoneal Fluid < 30 Units/L (No Ref Range)
[2017-02-28 15:46] LABS: Appearance of Peritoneal Fl CLEAR (Clear)
[2017-02-28 15:47] LABS: RBC,Peritoneal Fluid < 0.002 M/mcL
== END 2017-02-28 15:31 | disposition hospice, inpatient (51) | DRG 194 ==
LOC: 2ANU
PROVIDERS: ADMIT Internal Medicine Hematology & Oncology; ATTEND Internal Medicine

== ENCOUNTER 2017-02-28 14:33 | Inpatient (IN) ==
[2017-02-28] MEDS ORDERED: Atropine Sulfate 1% 40 DROP/2 ML BOTTLE SL PRN (14:42)
[2017-02-28] MEDS ORDERED: Ondansetron ODT 4 MG TAB.RAPDIS SL PRN (14:42)
[2017-02-28] MEDS ORDERED: Bisacodyl 10 MG RECTAL SUPPOSITORY RC PRN (14:42)
--- NOTE | 2017-02-28 14:57 | Palliative - Consult Note ---
Date of Encounter: 02/28/17 Time of Encounter: 15:10 - Assessment and Plan (1) Generalized pain Status: Acute Assessment and plan: He was started on Fentanyl 50mcg patch per hospitalist during hospital stay - no opioids on home med list, but he does seem to be tolerating this ok. Will continue and monitor. Morphine was not effective for him previously, Hydromorphone appears to keep him more comfortable. Will continue IV PRN at frequent intervals and monitor (2) Anxiety Status: Acute Assessment and plan: Lorazapam PRN as needed. He was drinking prior to arrival for his pain, but had not been home more than a few days from [facility], so do not think withdrawal will be an issue (3) Counseling regarding advanced care planning and goals of care Status: Acute Assessment and plan: Discussion with pt sister Jaye HERNANDEZ, He is not alert enough today to participate in conversation. Will admit to general inpt hospice for symptom management. He may not survive hospital stay. If stabilized, he will need placed under Medicaid at nursing facility. Nephew that he lives with with new baby and unable to provide his care. Sister will be moving out of her residence at the end of the month. Will reach out to conveyor worker and update on situation. (4) Counseling regarding advanced care planning and goals of care Status: Acute (5) End stage liver disease Status: Acute (6) Pneumonia Status: Acute Qualifiers: Pneumonia type: due to unspecified organism Laterality: right Lung location: lower lobe of lung Qualified Code(s): J18.1 - Lobar pneumonia, unspecified organism (7) Cirrhosis of liver with ascites Status: Acute Qualifiers: Hepatic cirrhosis type: alcoholic cirrhosis Qualified Code(s): K70.31 - Alcoholic cirrhosis of liver with ascites (8) Metabolic encephalopathy Status: Acute Palliative-CN HPI - Data of Consult Requesting Physician: Taye Arguello MD - Consult Narrative History of present illness: Mr. Ortiz is a 51 year old male who was discharged from the hospital today and admitted to general inpt hospice care for pain and symptom management. He was in hospital for pneumonia and end stage liver disease. He was just discharged from [facility] last week, not a transplant candidate. He was sent home without pain medications, and reportedly used alcohol again to try and ease his pain. He had been compliant with his lactulose at home and ammonia level was normal on admission, however, his bili and liver enzymes continue to escalate. He was also began on IV antibiotics for pneumonia. Patient was awake and alert yesterday and communicated to the hospitalist, he wanted no further treatment, other than to be kept comfortable. Transitioned to DNRCC. Had difficulty locating family members yesterday, but did eventually find accurate phone numbers, and they were informed of pt critical condition. He currently appears more comfortable than when I saw him yesterday, but does c/ o pain whenever he is aroused. Paracentesis was performed a few days ago on hospital admission and greater than 6L removed. Family is at bedside. CC: Taye Arguello MD Past Med Surg Social Fam HX - Past Medical History Medical history: arthritis, cirrhosis, CHF, COPD, GERD, hyperlipidemia, hypertension, liver disease, osteoporosis, seizures Psychiatric history: depression, schizophrenia - Past Surgical History Surgical History: orthopedic, other - Social History Smoking Status: Never smoker Smokeless Tobacco Status: No Alcohol use: heavy, recent Drug use: none - Family History Mother Family Member Ethnicity: Non- Living Status: Hx Family Cardiac Disorders: Yes Hx Family Respiratory Disorders: Yes Hx Family Cancer: No Hx Family GI Disorders: No Hx Family Endocrine Disorder: No Hx Family Neuromuscular Disorders: Yes (Polio, CVA) Hx Family Neurologic Disorders: No Hx Family HEENT Disorders: No Hx Family Autoimmune Disorders: No Father Family Member Ethnicity: Non- Living Status: Hx Family Cardiac Disorders: No Hx Family Respiratory Disorders: No Hx Family Cancer: No Hx Family GI Disorders: No Hx Family Endocrine Disorder: No Hx Family Neuromuscular Disorders: No Hx Family Neurologic Disorders: No Hx Family HEENT Disorders: No Hx Family Autoimmune Disorders: No Sister Family Member Ethnicity: Non- Living Status: Still Living Hx Family Cancer: Yes (thyroid cancer) Hx Family Endocrine Disorder: Yes Medications and Allergies Paliperidone [Paliperidone ER] 6 mg PO QAM 07/25/15 [History] Multivitamin [One Daily Essential] 1 tab PO QAM 10/01/15 [History] Tamsulosin [Flomax] 0.4 mg PO HS 10/01/15 [History] Thiamine (B-1) [Vitamin B-1] 100 mg PO QAM 10/01/15 [History] Zinc Sulfate 220 mg PO QAM 10/01/15 [History] lamoTRIgine [Lamictal] 100 mg PO QAM 02/24/16 [History] Acetaminophen [Tylenol] 325 mg PO Q6HR PRN 10/01/16 [History] Folic Acid 1 mg PO QAM 10/01/16 [History] Melatonin 5 mg PO HS 10/01/16 [History] Pantoprazole Sodium [Protonix] 40 mg PO BID 10/01/16 [History] Spironolactone [Aldactone] 100 mg PO BID 10/01/16 [History] Lactulose 30 gm PO BID #60 10/03/16 [Rx] Furosemide [Lasix] 40 mg PO DAILY 02/12/17 [History] Rifaximin [Xifaxan] 550 mg PO BID 02/12/17 [History] Sucralfate [Carafate] 1 gm PO QID 02/12/17 [History] FentaNYL PATCH [Duragesic] 50 mcg TD Q72H patch.td72 02/28/17 [Rx] HYDROmorphone (PF) [Dilaudid] 1 mg IVP Q2H PRN syringe 02/28/17 [Rx] HYDROmorphone (PF) [Dilaudid] 2 mg IVP Q2H PRN syringe 02/28/17 [Rx] LORazepam [Ativan] 1 mg IVP Q2HR PRN vial 02/28/17 [Rx] 3 Allergy/AdvReac Type Severity Reaction Status Date / Time No Known Allergies Allergy Verified 09/14/16 16:04 ROS unobtainable: due to mental status Palliative Care-Exam - Constitutional General appearance: Present: no acute distress - Head Head Exam: Present: normal inspection, normocephalic - Eye Eye exam: Present: scleral icterus - Respiratory Respiratory exam: Present: decreased breath sounds, CTAB - Cardiovascular Cardiovascular exam: Present: +S1, +S2 - GI/Abdominal Exam GI/Abdominal exam: Present: diminished bowel sounds, distended, soft - Extremities Exam Additional comments: 3+ edema bilateral lower extremities - Neurological Exam Neurological exam: Present: alert Additional comments: Lethargic - does awaken with assessment. - Skin Skin exam: Present: dry, warm Palliative Quality Palliative Quality: Screen for Code Status: Yes, Screen for Goals of Care: Yes, Screen for Pain: Yes, If Pain Regimen Started, Initiate Bowel Regimen: Yes, Screen for Nausea/Vomitting: Yes
--- NOTE | 2017-02-28 15:51 | Palliative - Consult Note ---
Date of Encounter: 03/02/17 - Assessment and Plan (1) Generalized pain Current Visit: Yes Status: Acute (2) Anxiety Current Visit: Yes Status: Chronic (3) Counseling regarding advanced care planning and goals of care Current Visit: Yes Status: Acute (4) Counseling regarding advanced care planning and goals of care Current Visit: No Status: Acute (5) End stage liver disease Current Visit: Yes Status: Chronic (6) Pneumonia Current Visit: Yes Status: Acute Qualifiers: Pneumonia type: due to unspecified organism Laterality: right Lung location: lower lobe of lung Qualified Code(s): J18.1 - Lobar pneumonia, unspecified organism (7) Cirrhosis of liver with ascites Current Visit: Yes Status: Chronic Qualifiers: Hepatic cirrhosis type: alcoholic cirrhosis Qualified Code(s): K70.31 - Alcoholic cirrhosis of liver with ascites (8) Metabolic encephalopathy Current Visit: Yes Status: Acute Palliative-CN HPI - Data of Consult Requesting Physician: Taye Arguello MD Primary Care Provider: Zoila Vora MD - Consult Narrative History of present illness: Mr. Ortiz is a 51 year old male CC: Taye Arguello MD Past Med Surg Social Fam HX - Past Medical History Medical history: arthritis, cirrhosis, CHF, COPD, GERD, hyperlipidemia, hypertension, liver disease, osteoporosis, seizures Psychiatric history: depression, schizophrenia - Past Surgical History Surgical History: orthopedic, other - Social History Smoking Status: Never smoker Smokeless Tobacco Status: No Alcohol use: heavy, recent Drug use: none - Family History Mother Family Member Ethnicity: Non- Living Status: Hx Family Cardiac Disorders: Yes Hx Family Respiratory Disorders: Yes Hx Family Cancer: No Hx Family GI Disorders: No Hx Family Endocrine Disorder: No Hx Family Neuromuscular Disorders: Yes (Polio, CVA) Hx Family Neurologic Disorders: No Hx Family HEENT Disorders: No Hx Family Autoimmune Disorders: No Father Family Member Ethnicity: Non- Living Status: Hx Family Cardiac Disorders: No Hx Family Respiratory Disorders: No Hx Family Cancer: No Hx Family GI Disorders: No Hx Family Endocrine Disorder: No Hx Family Neuromuscular Disorders: No Hx Family Neurologic Disorders: No Hx Family HEENT Disorders: No Hx Family Autoimmune Disorders: No Sister Family Member Ethnicity: Non- Living Status: Still Living Hx Family Cancer: Yes (thyroid cancer) Hx Family Endocrine Disorder: Yes Medications and Allergies Paliperidone [Paliperidone ER] 6 mg PO QAM 07/25/15 [History] Multivitamin [One Daily Essential] 1 tab PO QAM 10/01/15 [History] Tamsulosin [Flomax] 0.4 mg PO HS 10/01/15 [History] Thiamine (B-1) [Vitamin B-1] 100 mg PO QAM 10/01/15 [History] Zinc Sulfate 220 mg PO QAM 10/01/15 [History] lamoTRIgine [Lamictal] 100 mg PO QAM 02/24/16 [History] Acetaminophen [Tylenol] 325 mg PO Q6HR PRN 10/01/16 [History] Folic Acid 1 mg PO QAM 10/01/16 [History] Melatonin 5 mg PO HS 10/01/16 [History] Pantoprazole Sodium [Protonix] 40 mg PO BID 10/01/16 [History] Spironolactone [Aldactone] 100 mg PO BID 10/01/16 [History] Lactulose 30 gm PO BID #60 10/03/16 [Rx] Furosemide [Lasix] 40 mg PO DAILY 02/12/17 [History] Rifaximin [Xifaxan] 550 mg PO BID 02/12/17 [History] Sucralfate [Carafate] 1 gm PO QID 02/12/17 [History] FentaNYL PATCH [Duragesic] 50 mcg TD Q72H patch.td72 02/28/17 [Rx] HYDROmorphone (PF) [Dilaudid] 1 mg IVP Q2H PRN syringe 02/28/17 [Rx] HYDROmorphone (PF) [Dilaudid] 2 mg IVP Q2H PRN syringe 02/28/17 [Rx] LORazepam [Ativan] 1 mg IVP Q2HR PRN vial 02/28/17 [Rx] 3 Allergy/AdvReac Type Severity Reaction Status Date / Time No Known Allergies Allergy Verified 09/14/16 16:04 Palliative Care-Exam - Constitutional General appearance: Present: no acute distress Consult Discharge Plan - Plan Referrals: Zoila Vora MD [Primary Care Provider] - Palliative Quality Palliative Quality: Screen for Code Status: Yes, Screen for Goals of Care: Yes, Screen for Pain: Yes, If Pain Regimen Started, Initiate Bowel Regimen: Yes, Screen for Nausea/Vomitting: Yes
[2017-02-28] MEDS: *HR* FentaNYL PATCH 50 MCG PATCH TD SCH (16:48)
[2017-02-28] MEDS: Lactulose Oral Soln 20 GM/30 ML UDC PO SCH (20:46)
[2017-03-01] MEDS: Lactulose Oral Soln 20 GM/30 ML UDC PO SCH (08:58)
[2017-03-01] MEDS: lamoTRIgine 100 MG TABLET PO SCH (08:58)
--- NOTE | 2017-03-01 10:38 | Internal Med History&Physical ---
Date of Encounter: 03/01/17 Time of Encounter: 10:27 Assessment and Plan (1) Generalized pain Current visit: Yes Status: Acute Patient somnolent, but very briefly arousable for yes/no questions. Pain controlled per patient. Continue with fentanyl 50mcg patch and hydromrphone 1mg q2h prn. (2) Metabolic encephalopathy Current visit: Yes Status: Acute (3) Decompensated hepatic cirrhosis Current visit: Yes Status: Chronic (4) End stage liver disease Current visit: Yes Status: Chronic (5) Cirrhosis of liver with ascites Current visit: Yes Status: Chronic Qualifiers: Hepatic cirrhosis type: alcoholic cirrhosis Qualified Code(s): K70.31 - Alcoholic cirrhosis of liver with ascites (6) Pneumonia Current visit: Yes Status: Acute Qualifiers: Pneumonia type: due to unspecified organism Laterality: right Lung location: lower lobe of lung Qualified Code(s): J18.1 - Lobar pneumonia, unspecified organism (7) Anxiety Current visit: Yes Status: Chronic (8) Counseling regarding advanced care planning and goals of care Current visit: Yes Status: Acute Internal Medicine - H&P: HPI Chief complaint: GIP-generalized pain Admitted From: Direct Admit Plans for Post Hospital Care: Transfer Other History of present illness: Mr. Ortiz is a 51 year old male with history of End stage liver disease with alcoholic cirrhosis and anxiety who was admitted to general inpatient hospice care for pain and symptom management. Patient was recently discharged from [facility] with diagnosis of pneumonia and had paracentesis completed, but was sent home without pain medications and lactulose so reportedly used alcohol again. He presented to [place] ED on 02/26/17 with complaint of shortness of breath and feeling smothered. Patient was admitted to [place] for decompensated hepatic cirrhosis and abdominal pain and distension. Patient was started on IV antibiotics and on 02/27/17 patient expressed that he did not want further treatment other than comfort care and hospice. Patient overnight appears to have been stable based on vitals. This morning the patient was very somnolent, but very briefly arousable with sternal rub, but non conversational other than yes and no and grunting. Patient did report that his pain is controlled, but was unable to say where the pain was. He was otherwise sleeping comfortably in bed. Past Med Surg Social Fam HX - Past Medical History Medical history: arthritis, cirrhosis, CHF, COPD, GERD, hyperlipidemia, hypertension, liver disease, osteoporosis, seizures Psychiatric history: depression, schizophrenia - Past Surgical History Surgical History: orthopedic, other - Social History Smoking Status: Never smoker Smokeless Tobacco Status: No Alcohol use: heavy, recent Drug use: none - Family History Mother Family Member Ethnicity: Non- Living Status: Hx Family Cardiac Disorders: Yes Hx Family Respiratory Disorders: Yes Hx Family Cancer: No Hx Family GI Disorders: No Hx Family Endocrine Disorder: No Hx Family Neuromuscular Disorders: Yes (Polio, CVA) Hx Family Neurologic Disorders: No Hx Family HEENT Disorders: No Hx Family Autoimmune Disorders: No Father Family Member Ethnicity: Non- Living Status: Hx Family Cardiac Disorders: No Hx Family Respiratory Disorders: No Hx Family Cancer: No Hx Family GI Disorders: No Hx Family Endocrine Disorder: No Hx Family Neuromuscular Disorders: No Hx Family Neurologic Disorders: No Hx Family HEENT Disorders: No Hx Family Autoimmune Disorders: No Sister Family Member Ethnicity: Non- Living Status: Still Living Hx Family Cancer: Yes (thyroid cancer) Hx Family Endocrine Disorder: Yes Internal Medicine - H&P: Meds Paliperidone [Paliperidone ER] 6 mg PO QAM 07/25/15 [History] Multivitamin [One Daily Essential] 1 tab PO QAM 10/01/15 [History] Tamsulosin [Flomax] 0.4 mg PO HS 10/01/15 [History] Thiamine (B-1) [Vitamin B-1] 100 mg PO QAM 10/01/15 [History] Zinc Sulfate 220 mg PO QAM 10/01/15 [History] lamoTRIgine [Lamictal] 100 mg PO QAM 02/24/16 [History] Acetaminophen [Tylenol] 325 mg PO Q6HR PRN 10/01/16 [History] Folic Acid 1 mg PO QAM 10/01/16 [History] Melatonin 5 mg PO HS 10/01/16 [History] Pantoprazole Sodium [Protonix] 40 mg PO BID 10/01/16 [History] Spironolactone [Aldactone] 100 mg PO BID 10/01/16 [History] Lactulose 30 gm PO BID #60 10/03/16 [Rx] Furosemide [Lasix] 40 mg PO DAILY 02/12/17 [History] Rifaximin [Xifaxan] 550 mg PO BID 02/12/17 [History] Sucralfate [Carafate] 1 gm PO QID 02/12/17 [History] FentaNYL PATCH [Duragesic] 50 mcg TD Q72H patch.td72 02/28/17 [Rx] HYDROmorphone (PF) [Dilaudid] 1 mg IVP Q2H PRN syringe 02/28/17 [Rx] HYDROmorphone (PF) [Dilaudid] 2 mg IVP Q2H PRN syringe 02/28/17 [Rx] LORazepam [Ativan] 1 mg IVP Q2HR PRN vial 02/28/17 [Rx] 3 Allergy/AdvReac Type Severity Reaction Status Date / Time No Known Allergies Allergy Verified 09/14/16 16:04 ROS unobtainable: due to mental status All Systems PM: A 10-system review of systems was performed and is negative for pertinent findings except as documented above in the HPI. - Constitutional Vitals: Temp Pulse Resp BP Pulse Ox 98.7 F 95 22 85/32 97 03/01/17 06:58 03/01/17 06:58 03/01/17 06:58 03/01/17 06:58 03/01/17 06:58 General appearance: Present: no acute distress Exam: somnolent but very briefly arousable with sternal rub and answers yes and no at times, otherwise comfortable in bed. - Head Head exam: Present: atraumatic, normal inspection, normocephalic - Eye Eye exam: Present: PERRL, scleral icterus - ENT ENT exam: Present: mucous membranes moist - Respiratory Respiratory exam: Present: rhonchi. Absent: accessory muscle use, chest wall tenderness, rales, respiratory distress, wheezes Additional comments: Chest with palpable 1+ pitting edema - Cardiovascular Cardiovascular exam: Present: RRR, +S2, systolic murmur. Absent: JVD - GI/Abdominal GI/Abdominal exam: Present: distended, normal bowel sounds. Absent: tenderness Additional comments: fluid wave positive - Extremities Exam Extremities exam: Present: pedal edema (1-2+ pitting edema throughout, pulses diminished bilaterally), warm - Neurological Exam Additional comments: per above. - Skin Skin exam: Present: dry, intact, warm. Absent: diaphoretic, erythema, rash Additional comments: jaundiced
--- NOTE | 2017-03-01 10:51 | Pallative History & Physical ---
Date of Encounter: 03/01/17 Time of Encounter: 10:49 Assessment and Plan (1) Generalized pain Current visit: Yes Status: Acute Patient was very briefly arousable with sternal rub able to answer yes and no. Reported pain was controlled. Continue with fentanyl 50mcg patch and hydromorphone 1mg q2h prn for pain control. (2) Metabolic encephalopathy Current visit: Yes Status: Acute Likely secondary to elevated ammonia secondary to End stage liver disease. Continue with lactulose 30gm po bid. (3) Decompensated hepatic cirrhosis Current visit: Yes Status: Chronic per plan in assessment above. (4) End stage liver disease Current visit: Yes Status: Chronic per plan in assessment above. (5) Cirrhosis of liver with ascites Current visit: Yes Status: Chronic per plan in assessment above. Qualifiers: Hepatic cirrhosis type: alcoholic cirrhosis Qualified Code(s): K70.31 - Alcoholic cirrhosis of liver with ascites (6) Pneumonia Current visit: Yes Status: Acute discontinued antibiotics 02/27/17 per patient request. Qualifiers: Pneumonia type: due to unspecified organism Laterality: right Lung location: lower lobe of lung Qualified Code(s): J18.1 - Lobar pneumonia, unspecified organism (7) Anxiety Current visit: Yes Status: Chronic Continue with loraepam 1mg q4h prn. (8) Counseling regarding advanced care planning and goals of care Current visit: Yes Status: Acute No additional discussions this morning, patient's family or POA not at bedside. Internal Medicine - H&P: HPI Chief complaint: GIP-Pain management Admitted From: Direct Admit Plans for Post Hospital Care: Transfer Other History of present illness: Mr. Ortiz is a 51 year old male with history of End stage liver disease with alcoholic cirrhosis and anxiety who was admitted to general inpatient hospice care for pain and symptom management. Patient was recently discharged from [facility] with diagnosis of pneumonia and had paracentesis completed, but was sent home without pain medications and lactulose so reportedly used alcohol again. He presented to [facility] ED on 02/26/17 with complaint of shortness of breath and feeling smothered. Patient was admitted to [facility] for decompensated hepatic cirrhosis and abdominal pain and distension. Patient was started on IV antibiotics and on 02/27/17 patient expressed that he did not want further treatment other than comfort care and hospice. Patient overnight appears to have been stable based on vitals. This morning the patient was very somnolent, but very briefly arousable with sternal rub, but non conversational other than yes and no and grunting. Patient did report that his pain is controlled, but was unable to say where the pain was. He was otherwise sleeping comfortably in bed. Past Med Surg Social Fam HX - Past Medical History Medical history: arthritis, cirrhosis, CHF, COPD, GERD, hyperlipidemia, hypertension, liver disease, osteoporosis, seizures Psychiatric history: depression, schizophrenia - Past Surgical History Surgical History: orthopedic, other - Social History Smoking Status: Never smoker Smokeless Tobacco Status: No Alcohol use: heavy, recent Drug use: none - Family History Mother Family Member Ethnicity: Non- Living Status: Hx Family Cardiac Disorders: Yes Hx Family Respiratory Disorders: Yes Hx Family Cancer: No Hx Family GI Disorders: No Hx Family Endocrine Disorder: No Hx Family Neuromuscular Disorders: Yes (Polio, CVA) Hx Family Neurologic Disorders: No Hx Family HEENT Disorders: No Hx Family Autoimmune Disorders: No Father Family Member Ethnicity: Non- Living Status: Hx Family Cardiac Disorders: No Hx Family Respiratory Disorders: No Hx Family Cancer: No Hx Family GI Disorders: No Hx Family Endocrine Disorder: No Hx Family Neuromuscular Disorders: No Hx Family Neurologic Disorders: No Hx Family HEENT Disorders: No Hx Family Autoimmune Disorders: No Sister Family Member Ethnicity: Non- Living Status: Still Living Hx Family Cancer: Yes (thyroid cancer) Hx Family Endocrine Disorder: Yes Internal Medicine - H&P: Meds Paliperidone [Paliperidone ER] 6 mg PO QAM 07/25/15 [History] Multivitamin [One Daily Essential] 1 tab PO QAM 10/01/15 [History] Tamsulosin [Flomax] 0.4 mg PO 10/01/15 [History] Thiamine (B-1) [Vitamin B-1] 100 mg PO QAM 10/01/15 [History] Zinc Sulfate 220 mg PO QAM 10/01/15 [History] lamoTRIgine [Lamictal] 100 mg PO QAM 02/24/16 [History] Acetaminophen [Tylenol] 325 mg PO Q6HR PRN 10/01/16 [History] Folic Acid 1 mg PO QAM 10/01/16 [History] Melatonin 5 mg PO HS 10/01/16 [History] Pantoprazole Sodium [Protonix] 40 mg PO BID 10/01/16 [History] Spironolactone [Aldactone] 100 mg PO BID 10/01/16 [History] Lactulose 30 gm PO BID #60 10/03/16 [Rx] Furosemide [Lasix] 40 mg PO DAILY 02/12/17 [History] Rifaximin [Xifaxan] 550 mg PO BID 02/12/17 [History] Sucralfate [Carafate] 1 gm PO QID 02/12/17 [History] FentaNYL PATCH [Duragesic] 50 mcg TD Q72H patch.td72 02/28/17 [Rx] HYDROmorphone (PF) [Dilaudid] 1 mg IVP Q2H PRN syringe 02/28/17 [Rx] HYDROmorphone (PF) [Dilaudid] 2 mg IVP Q2H PRN syringe 02/28/17 [Rx] LORazepam [Ativan] 1 mg IVP Q2HR PRN vial 02/28/17 [Rx] 3 Allergy/AdvReac Type Severity Reaction Status Date / Time No Known Allergies Allergy Verified 09/14/16 16:04 ROS unobtainable: due to mental status Palliative Care-Exam - Constitutional Vitals: Temp Pulse Resp BP Pulse Ox 98.7 F 95 22 85/32 97 03/01/17 06:58 03/01/17 06:58 03/01/17 06:58 03/01/17 06:58 03/01/17 06:58 General appearance: Present: no acute distress Exam: somnolent, very briefly arousable with sternal rub. - Head Head Exam: Present: atraumatic, normal inspection, normocephalic - Eye Eye exam: Present: PERRL, scleral icterus - ENT ENT exam: Present: mucous membranes moist - Respiratory Respiratory exam: Present: rhonchi. Absent: rales, respiratory distress, wheezes Additional comments: 1+ pitting edema over chest - Cardiovascular Cardiovascular exam: Present: RRR, +S2, systolic murmur - GI/Abdominal Exam GI/Abdominal exam: Present: distended. Absent: tenderness additional comments: fluid wave positive. - Extremities Exam Extremities exam: Present: pedal edema Additional comments: 1-2+ pitting edema bilateral upper and lower extremities, pulses diminished bilaterally. - Neurological Exam Additional comments: see above - Skin Skin exam: Present: dry, intact, warm. Absent: rash Additional comments: jaundiced Palliative Quality Palliative Quality: Screen for Code Status: Yes, Screen for Goals of Care: Yes, Screen for Pain: Yes, If Pain Regimen Started, Initiate Bowel Regimen: Yes, Screen for Nausea/Vomitting: Yes Code Status: 02/28/17 17:11 DNR [Resuscitation Status: Active] [RES] Routine Comment: Resuscitation Status: DNR-Comfort Care
[2017-03-01] MEDS: *HR* HYDROmorphone (PF) 1 MG/ML SYRINGE IVP PRN (14:24)
[2017-03-02] MEDS: Lactulose Oral Soln 20 GM/30 ML UDC PO SCH ×2 (02:19→08:45)
[2017-03-02] MEDS: *HR* HYDROmorphone (PF) 1 MG/ML SYRINGE IVP PRN ×5 (02:23→16:13)
[2017-03-02] MEDS: lamoTRIgine 100 MG TABLET PO SCH (08:45)
--- NOTE | 2017-03-02 08:54 | Palliative Progress Note ---
Date of Encounter: 03/02/17 Time of Encounter: 08:45 - Assessment and plan (1) Generalized pain Current Visit: Yes Status: Acute Assessment and plan: Was considering transition or oral medication today, however, with significant change in blood pressure and decreased mental status, will hold off and re- evaluate in am. (2) Anxiety Current Visit: Yes Status: Chronic Assessment and plan: Continue IV Lorazepam PRN. He is now unable to take po meds, so will likely require for anxiety and restlessness (3) Counseling regarding advanced care planning and goals of care Current Visit: Yes Status: Acute Assessment and plan: No family at bedside. Sister and nephew visited for quite some time yesterday per primary nurse. If he stabilized for discharge, will need ECF placement. (4) Counseling regarding advanced care planning and goals of care Current Visit: No Status: Acute (5) End stage liver disease Current Visit: Yes Status: Chronic (6) Pneumonia Current Visit: Yes Status: Acute Qualifiers: Pneumonia type: due to unspecified organism Laterality: right Lung location: lower lobe of lung Qualified Code(s): J18.1 - Lobar pneumonia, unspecified organism (7) Cirrhosis of liver with ascites Current Visit: Yes Status: Chronic Qualifiers: Hepatic cirrhosis type: alcoholic cirrhosis Qualified Code(s): K70.31 - Alcoholic cirrhosis of liver with ascites (8) Metabolic encephalopathy Current Visit: Yes Status: Acute - Time Spent With Patient Total time spent is greater than 50% in coordination of care (as documented) at patient's floor/unit and/or counseling patient: - Subjective Interval history: Patient lethargic - awakens but mumbling unintelligible speech. Moaning occasionally, but cannot answer if he is in pain. Patient extremely hypotensive this am, systolic pressure in 60's. Tremor to right upper extremity. Unable to take po meds since yesterday. Has not voided since Wednesday. + BM last night. - Constitutional General appearance: Present: no acute distress - Respiratory Respiratory exam: Present: decreased breath sounds, CTAB Additional comments: Shallow inspiratory effort - Cardiovascular Cardiovascular exam: Present: +S1, +S2 - GI/Abdominal GI/Abdominal exam: Present: diminished bowel sounds, distended, firm - Additional comments: Has not voided in 48 hours. Profound ascites and abd distention. Will insert irwin for comfort at this point, in case he is retaining. - Extremities Exam Additional comments: 2-3+ edema bilateral lower extremities - Neurological Exam Additional comments: Lethargic, appears confused, speech mumbled and difficult to understand - Skin Additional comments: Jaundiced Palliative Quality Palliative Quality: Screen for Code Status: Yes, Screen for Goals of Care: Yes, Screen for Pain: Yes, If Pain Regimen Started, Initiate Bowel Regimen: Yes, Screen for Nausea/Vomitting: Yes Code Status: 02/28/17 17:11 DNR [Resuscitation Status: Active] [RES] Routine Comment: Resuscitation Status: DNR-Comfort Care Consult Discharge Plan - Plan Referrals: Zoila Vora MD [Primary Care Provider] -
[2017-03-02] MEDS: *HR* LORazepam 2 MG/ML VIAL IVP PRN (11:15)
--- NOTE | 2017-03-02 13:59 | Event Note ---
Date of Encounter: 03/02/17 Time of Encounter: 13:57 Hospice medical services manager certification of terminal illness: Hospice benefit. Start: 02/28/2017 Hospice benefit. In: +90 days Palliative performance scale: Ready to 40% History: Patient with a history of end-stage liver disease and recently been evaluated by the [facility] for liver transplant. He is not eligible for liver transplant and has continued to have significant problems with her mental status and hepatorenal syndrome. Been hospitalized here at [facility] altered mental status secondary to a high ammonia levels. 1 and no further treatment other than be kept comfortable. Therefore I believe that These findings support a life expectancy of 6 months or less. I attest that I have compose the above narrative based on my review of the patient's medical records, and or on my examination of the patient. Taye Arguello M.D. Associate medical assistant prn. [facility]
[2017-03-03] MEDS: *HR* LORazepam 2 MG/ML VIAL IVP PRN ×2 (02:51→11:41)
[2017-03-03] MEDS: *HR* HYDROmorphone (PF) 1 MG/ML SYRINGE IVP PRN ×2 (02:52→11:47)
--- NOTE | 2017-03-03 07:10 | Palliative Progress Note ---
<Erick Bianchi - Last Filed: 03/03/17 08:48> Date of Encounter: 03/03/17 Time of Encounter: 07:09 - Assessment and plan (1) Generalized pain Current Visit: Yes Status: Acute Assessment and plan: Patient was briefly arousable but with unintelligible speech, moaning and mumbling at times appropriately when questioned. Uncertain whether pain controlled, but patient appear in no acute distress and unable to elicit significant response to pain. Continue with fentanyl 50mcg patch and hydromorphone 1mg q2h prn for pain control. (2) Metabolic encephalopathy Current Visit: Yes Status: Acute Assessment and plan: Likely secondary to elevated ammonia secondary to End stage liver disease. Lactulose discontinued (3) Decompensated hepatic cirrhosis Current Visit: Yes Status: Chronic Assessment and plan: per plan in assessment above. (4) End stage liver disease Current Visit: Yes Status: Chronic Assessment and plan: per plan in assessment above. (5) Cirrhosis of liver with ascites Current Visit: Yes Status: Chronic Assessment and plan: per plan in assessment above. Qualifiers: Hepatic cirrhosis type: alcoholic cirrhosis Qualified Code(s): K70.31 - Alcoholic cirrhosis of liver with ascites (6) Pneumonia Current Visit: Yes Status: Acute Assessment and plan: discontinued antibiotics 02/27/17 per patient request. Qualifiers: Pneumonia type: due to unspecified organism Laterality: right Lung location: lower lobe of lung Qualified Code(s): J18.1 - Lobar pneumonia, unspecified organism (7) Anxiety Current Visit: Yes Status: Chronic Assessment and plan: Continue with lorazepam 1mg q4h prn. (8) Counseling regarding advanced care planning and goals of care Current Visit: Yes Status: Acute Assessment and plan: No additional discussions this morning, patient's family or POA not at bedside. (9) Hypotension Current Visit: Yes Status: Acute Assessment and plan: Hypotension since admission. Continue monitoring vitals closely, no further intervention for hypotension at this time. Qualifiers: Hypotension type: other hypotension type Qualified Code(s): I95.89 - Other hypotension - Time Spent With Patient Total time spent is greater than 50% in coordination of care (as documented) at patient's floor/unit and/or counseling patient: - Subjective Interval history: Patient is lethargic but arousable. Reacted to room lights turning on by shutting his eyes tighter, opened eyes briefly, squeezed hands on command, mumbling speech, unable to say whether pain is controlled, but nodded head consistently when asked if medication has helped. Patient said no when asked if he was hungry or if he ate anything. Vitals reviewed this morning, hypotensive 66/32 with rate 76. - Constitutional General appearance: Present: no acute distress Exam: mumbling and moaning to some questions, winced when turned on room lights, opened eyes briefly on own and on command, squeezed hands b/l when prompted. - Eye Eye exam: Present: PERRL, scleral icterus - ENT ENT exam: Present: mucous membranes moist - Respiratory Respiratory exam: Present: CTAB. Absent: rales, rhonchi, wheezes - Cardiovascular Cardiovascular exam: Present: JVD, RRR, +S2, systolic murmur - GI/Abdominal GI/Abdominal exam: Present: distended, firm, hypoactive bowel sounds. Absent: guarding, rebound - Extremities Exam Additional comments: 2+ pitting edema bilateral lower extremities, 1+ nonpitting upper extremities, 1 + pitting over sternum, left fot/toe hyperextended, increased capillary refill lower extremities. - Neurological Exam Additional comments: per above - Skin Skin exam: Present: dry, intact, warm Additional comments: jaundiced Palliative Quality Palliative Quality: Screen for Code Status: Yes, Screen for Goals of Care: Yes, Screen for Pain: Yes, If Pain Regimen Started, Initiate Bowel Regimen: Yes, Screen for Nausea/Vomitting: Yes Code Status: 02/28/17 17:11 DNR [Resuscitation Status: Active] [RES] Routine Comment: Resuscitation Status: DNR-Comfort Care Consult Discharge Plan - Plan Referrals: Zoila Vora MD [Primary Care Provider] - <Taye Arguello - Last Filed: 03/03/17 09:33> Date of Encounter: 03/03/17 - Time Spent With Patient Total time spent is greater than 50% in coordination of care (as documented) at patient's floor/unit and/or counseling patient: - Attending Attestation I examined this patient and my medical decision-making was reviewed with the Resident Physician. I agree with the documented findings, disposition and treatment plan as described except to the extent set forth below. Palliative Quality Code Status: 02/28/17 17:11 DNR [Resuscitation Status: Active] [RES] Routine Comment: Resuscitation Status: DNR-Comfort Care
[2017-03-03] MEDS: *HR* FentaNYL PATCH 50 MCG PATCH TD SCH (15:03)
[2017-03-04] MEDS: *HR* LORazepam 2 MG/ML VIAL IVP PRN ×2 (02:25→06:55)
[2017-03-04 07:28] VITALS: BP 53/22
--- NOTE | 2017-03-04 07:33 | Palliative Progress Note ---
Date of Encounter: 03/04/17 Time of Encounter: 07:20 - Assessment and plan (1) Abdominal pain Current Visit: No Status: Acute Assessment and plan: Under good control at this time. Patient states not having any pain when he was last awake. Qualifiers: Abdominal location: generalized Qualified Code(s): R10.84 - Generalized abdominal pain (2) Acute encephalopathy Current Visit: No Status: Acute Assessment and plan: Multifactorial at this time, patient is mostly nonresponsive, this is related back to his liver disease and is not expected to get better. Patient's blood pressures dropping respirations are dropping I expect the patient to pass in the next day or 2. Patient is eminent (3) Cirrhosis of liver Current Visit: No Status: Chronic Assessment and plan: End-stage liver disease, this is his hospice diagnosis. No further therapy is anticipated. Qualifiers: Hepatic cirrhosis type: unspecified hepatic cirrhosis Ascites presence: with ascites Qualified Code(s): K74.60 - Unspecified cirrhosis of liver (4) Generalized pain Current Visit: Yes Status: Acute Assessment and plan: Under good control at this time no changes in medications today. (5) Goals of care, counseling/discussion Current Visit: No Status: Acute Assessment and plan: DNR comfort care, patient is a hospice general inpatient for symptom control. Symptoms are being well controlled but are still requiring massive medication, at this time the patient appears eminent with a very low blood pressure respirations are slowing I do not believe the patient can be adequately cared for at home or in a chcf therefore the patient remained GIP. (6) Urinary retention Current Visit: No Status: Acute - Time Spent With Patient Total time spent is greater than 50% in coordination of care (as documented) at patient's floor/unit and/or counseling patient: - Subjective Interval history: The patient is unresponsive to voice, nursing staff informs me he was just recently given some Ativan. He is in no pain and complained of no pain to them at the time he said he was just anxious. His blood pressure is quite low but he is still perfusing well. - Constitutional General appearance: Present: no acute distress - Head Head exam: Present: atraumatic, normal inspection - Eye Eye exam: Present: normal appearance - ENT ENT exam: Present: mucous membranes moist - Neck Neck exam: Present: normal inspection - Respiratory Respiratory exam: Present: decreased breath sounds (Lots of upper airway noise breathing is slow) - Cardiovascular Cardiovascular exam: Present: RRR - GI/Abdominal GI/Abdominal exam: Present: distended (Very tympanitic), hypoactive bowel sounds , soft. Absent: firm, tenderness - Extremities Exam Extremities exam: Present: pedal edema - Psychiatric Psychiatric exam: Absent: agitated, anxious - Skin Skin exam: Present: dry, warm. Absent: normal color (Jaundiced) Palliative Quality Palliative Quality: Screen for Code Status: Yes, Screen for Goals of Care: Yes, Screen for Pain: Yes, If Pain Regimen Started, Initiate Bowel Regimen: Yes, Screen for Nausea/Vomitting: Yes Code Status: 02/28/17 17:11 DNR [Resuscitation Status: Active] [RES] Routine Comment: Resuscitation Status: DNR-Comfort Care Consult Discharge Plan - Plan Referrals: Zoila Vora MD [Primary Care Provider] -
[2017-03-04] MEDS: *HR* HYDROmorphone (PF) 1 MG/ML SYRINGE IVP PRN (07:46)
--- NOTE | 2017-03-04 13:07 | Death Note ---
Discharge Sum: Summary - Date and Time Date of admission: 02/28/17 16:15 Date of : 03/04/17 Time of : 12:45 - Summary Details: The patient was brought under the general inpatient hospice service for generalized pain secondary to end-stage liver disease. She passed quietly and comfortably on 03/04/2017 at 1245 hrs. there was no family present. As of liver failure which she has had for years. Morbidities CHF, COPD, GERD, HTN. Patient was never smoker - Additional Data Confirmation of as documented by pronouncing clinician: no pulse, no respirations, no heart sounds, pupils fixed and dilated Family: attempt made Attending/PCP notified?: Yes Attending physician: Taye Arguello MD Was code activated?: No Autopsy requested?: No workers compensation claims examiner notified?: Yes Organ bank notified?: No Discharge Sum: Diag - PCOD Probable Cause of : Respiratory arrest Discharge Sum: Prov - Provider Primary care physician: Zoila Vora MD Consults: 02/28/17 14:45 Consult to Palliative Care [CONS] Routine Comment: Consulting Provider: Pall[facility] [place] Reason for Consult: GIP Call Completed: No
== END 2017-03-04 12:45 | disposition expired | DRG 432 ==
LOC: 2ANU → PREINTOOBSV 16:13 → OBSVTOIN 16:15
PROVIDERS: ADMIT Family Medicine Hospice and Palliative Medicine; ATTEND Family Medicine Hospice and Palliative Medicine